=== PATIENT | male | born 1950 | race Caucasian/White ===

== ENCOUNTER 2020-08-19 10:29 | Outpatient (REF) | payer MEDICARE, SELFPAY ==
[2020-08-19 11:00] LABS: Estimated Average Glucose 189 mg/dL; Hemoglobin A1c % 8.2 %
[2020-08-19 11:19] LABS: Alanine Aminotransferase 36 U/L (0-40); Albumin Level 4.2 g/dL (3.5-5.0); Alkaline Phosphatase 122 U/L (39-117); Aspartate Amino Transferase 28 U/L (5-37); Bilirubin Direct 0.3 mg/dL (0.0-0.5); Cholesterol 149 mg/dL; Glucose Random 127 mg/dL (60-115); HDL Cholesterol 43 mg/dL; LDL Cholesterol Calculated 83 mg/dl; Total Protein 6.7 g/dL (6.5-8.0); Triglycerides 118 mg/dL
[2020-08-19 13:19] LABS: Reflex LDLD? No
== END 2020-08-19 10:30 | disposition home or self-care (01) ==
LOC: HO.LNP 10:29
PROVIDERS: PCP Internal Medicine; Visit Provider Internal Medicine
DX: E11.9 Type 2 diabetes mellitus without complications (principal); E78.00 Pure hypercholesterolemia, unspecified
CPT/HCPCS: 80061; 80076; 82947; 83036

== ENCOUNTER → 2020-09-03 10:36 | Outpatient (BNVA) | payer MEDICARE, SELFPAY | PROVIDERS: PCP Internal Medicine; Visit Provider Orthopaedic Surgery | DX: M25.511 Pain in right shoulder (principal); M25.512 Pain in left shoulder | CPT/HCPCS: 99212 ==

== ENCOUNTER 2021-03-03 10:25 | Outpatient (REF) | payer MEDICARE, SELFPAY ==
[2021-03-03 10:29] LABS: MANUAL DIFF FLAG NO
[2021-03-03 11:14] LABS: Basophils Percent Auto 0.3 % (0-2); Eosinophils Absolute Auto 0.1 X10*3/uL (0.0-0.4); Eosinophils Percent Auto 1.2 % (0-4); Hematocrit 37.9 % (42.0-52.0); Hemoglobin 12.6 g/dl (14.0-18.0); Imm Gran Abs Auto 0.04 X10*3/uL (0.00-0.03); Imm Gran Pct Auto 0.7 % (0.0-0.4); Lymphocytes Absolute Auto 1.5 X10*3/uL (1.2-4.9); Lymphocytes Percent Auto 24.2 % (20-40); Mean Corpuscular HGB Conc 33.2 g/dl (31.0-36.0); Mean Corpuscular Hemoglobin 30.2 pg (27.0-33.0); Mean Corpuscular Volume 90.9 fL (80.0-98.0); Mean Platelet Volume 9.8 fL (9.4-12.4); Monocytes Absolute Auto 0.7 X10*3/uL (0.1-1.2); Monocytes Percent Auto 11.4 % (2-11); Neutrophils Absolute Auto 3.8 x10*3/uL (2.0-8.3); Neutrophils Percent Auto 62.2 % (45-73); Platelet Count 161 X10*3/uL (160-400); Red Blood Count 4.17 X10*6/uL (4.60-5.80); Red Cell Distribution Width 13.5 % (11.0-16.0)
[2021-03-03 11:17] LABS: Appearance Urine CLEAR; Color Urine YELLOW; Glucose Urine UA NEG (NEG); Leukocyte Esterase Urine NEG (NEG); Nitrite Urine NEG (NEG); Specific Gravity - Urine 1.025 (1.005-1.025); Urine Blood NEG (NEG); Urine Ketones NEG (NEG); Urine Protein NEG (NEG-TRACE)
[2021-03-03 11:23] LABS: Estimated Average Glucose 217 mg/dL; Hemoglobin A1c % 9.2 %
[2021-03-03 11:41] LABS: Creatinine Urine 157.69 mg/dL; Microalbum/Creatinine Ratio Ur 18.3 ug/mg cr
[2021-03-03 11:56] LABS: Alanine Aminotransferase 31 U/L (0-40); Albumin Level 4.1 g/dL (3.5-5.0); Alkaline Phosphatase 106 U/L (39-117); Anion Gap 12 (12-20); Aspartate Amino Transferase 25 U/L (5-37); Bilirubin Total 0.8 mg/dL (0.0-1.0); Blood Urea Nitrogen 20 mg/dL (9-16); Calcium 9.6 mg/dL (8.4-10.2); Carbon Dioxide 27 mmol/L (22-29); Chloride 108 mmol/L (96-108); Cholesterol 159 mg/dL; Estimated Glomerular Filt Rate > 60; Glucose Fasting 103 mg/dL (60-99); HDL Cholesterol 37 mg/dL; LDL Cholesterol Calculated 92 mg/dl; Potassium 3.9 mmol/L (3.3-5.1); Sodium 143 mmol/L (135-145); Total Protein 6.7 g/dL (6.5-8.0); Triglycerides 152 mg/dL
[2021-03-03 12:20] LABS: PSA,Total (Free>4and<10) 1.24 ng/mL (0.00-4.00)
[2021-03-03 13:07] LABS: Reflex LDLD? No
== END 2021-03-03 10:26 | disposition home or self-care (01) ==
LOC: HO.LNP 10:25
PROVIDERS: Visit Provider Internal Medicine
DX: Z00.00 Encounter for general adult medical examination without abnormal findings (principal); Z12.5 Encounter for screening for malignant neoplasm of prostate; E11.40 Type 2 diabetes mellitus with diabetic neuropathy, unspecified; E78.00 Pure hypercholesterolemia, unspecified; I10 Essential (primary) hypertension
CPT/HCPCS: 80053; 80061; 81003; 82043; 83036; 84153; 85025

== ENCOUNTER 2021-05-14 07:22 | Outpatient (REF) | payer BC, SELFPAY ==
--- NOTE | ~2021-05-14 | XR_ITS ---
EXAMINATION: XR BILATERAL AP KNEES XR LEFT KNEE CLINICAL INFORMATION: Pain knee. COMPARISON: None. TECHNIQUE: Bilateral AP knee standing. Left knee 2 views. FINDINGS: Bilateral AP Knee: There is loss of medial compartment joint space. The lateral compartment joints is maintained normal. No bony erosive changes or soft tissue swelling. Left Knee: Lateral and patellofemoral views reveal no abnormal suprapatellar joint effusion. No loose bodies. No bony erosive changes. There is lateral patellar spurring. The soft tissues are normal. XR/XR knee LT 2V IMPRESSION: Moderate degenerative changes medial compartment both knees without fracture or dislocation. No abnormal joint effusion left knee. There is no visible acute fracture or dislocation seen.
--- NOTE | ~2021-05-14 | XR_ITS ---
EXAMINATION: XR BILATERAL AP KNEES XR LEFT KNEE CLINICAL INFORMATION: Pain knee. COMPARISON: None. TECHNIQUE: Bilateral AP knee standing. Left knee 2 views. FINDINGS: Bilateral AP Knee: There is loss of medial compartment joint space. The lateral compartment joints is maintained normal. No bony erosive changes or soft tissue swelling. Left Knee: Lateral and patellofemoral views reveal no abnormal suprapatellar joint effusion. No loose bodies. No bony erosive changes. There is lateral patellar spurring. The soft tissues are normal. XR/XR knee standing BI IMPRESSION: Moderate degenerative changes medial compartment both knees without fracture or dislocation. No abnormal joint effusion left knee. There is no visible acute fracture or dislocation seen.
== END 2021-05-14 07:23 | disposition home or self-care (01) ==
LOC: HO.HOSX 07:22
PROVIDERS: Visit Provider Physician Assistant
DX: M17.0 Bilateral primary osteoarthritis of knee (principal)
CPT/HCPCS: 20610; 73560; 73565; J1020

== ENCOUNTER 2021-09-22 08:13 | Day surgery (SDC) | payer MEDICARE, SELFPAY ==
[2021-09-16 10:41] VITALS: BMI 31.0
--- NOTE | 2021-09-19 12:51 | HO.ANESPROP2 ---
Documented by User: Barbie Oscar NP 09/19/21 12:52 HPI - Anesthesia Eval Consult details Narrative: 71yo M for Upper Endoscopy and Colonoscopy [facility] Active Problems Active Problems: All Active Problems (Updated 09/16/21 @ 10:40 by Sheree Warner RN) Osteoarthritis of knees, bilateral (Acute) Past Medical History Medical History Arthritis Diabetes Elevated cholesterol GERD (gastroesophageal reflux disease) Hypertension Skin cancer Sleep apnea Surgical History Surgical History H/O colonoscopy H/O right knee surgery History of appendectomy History of esophagogastroduodenoscopy (EGD) Hx of cataract extraction Hx of hernia repair Hx of repair of rotator cuff Hx of vasectomy Social History Social History Patient Tobacco Use Status: Former Tobacco user Smoked in Last 30 Days: No Are you DNR?: No Advance Directives: No Advance Directives Information Provided: Yes Recently lost weight without trying: No Nutrition Risks: No Nutritional Risk Current occupational status: retired [employer] Allergies Allergy/AdvReac Type Severity Reaction Status Date / Time No Known Allergies Allergy Verified 09/22/21 08:46 [No Known Allergies*] Home Medications Medication Instructions Recorded Confirmed Last Taken Type atorvastatin 40 mg tablet 40 mg PO DAILY 09/03/20 09/16/21 Unknown History metformin 500 mg tablet 500 mg PO DAILY 09/03/20 09/16/21 Unknown History omeprazole 20 mg capsule,delayed 20 mg PO DAILY 09/03/20 09/16/21 Unknown History release sitagliptin 100 mg tablet (Januvia) 100 mg PO DAILY 09/03/20 09/16/21 Unknown History valsartan 320 1 tab PO DAILY 09/03/20 09/16/21 Unknown History mg-hydrochlorothiazide 12.5 mg tablet aspirin 81 mg tablet,delayed 81 mg PO DAILY 09/16/21 09/16/21 09/15/21 History release insulin glargine 100 unit/mL (3 ea subcut 09/16/21 09/16/21 Unknown History mL) subcutaneous pen (Lantus Solostar U-100 Insulin) multivitamin 1 tab PO DAILY 09/16/21 09/16/21 Unknown History Exam Exam Date and Time: September 19, 2021 1251 Height,Weight and Vital Signs: Height 5 ft 8 in Weight 92.533 kg Assessment and Plan Assessment Anesthesia Assessment: Chart Reviewed Documented by User: Saskia Means MD 09/22/21 09:27 [facility] Past Medical History Medical History Arthritis Diabetes Elevated cholesterol GERD (gastroesophageal reflux disease) Hypertension Skin cancer Sleep apnea Surgical History Surgical History H/O colonoscopy H/O right knee surgery History of appendectomy History of esophagogastroduodenoscopy (EGD) Hx of cataract extraction Hx of hernia repair Hx of repair of rotator cuff Hx of vasectomy History of Problems with Anesthesia: No Social History Social History Patient Tobacco Use Status: Former Tobacco user Smoked in Last 30 Days: No Are you DNR?: No Advance Directives: No Advance Directives Information Provided: Yes Recently lost weight without trying: No Nutrition Risks: No Nutritional Risk Current occupational status: retired Meds Allergies Allergy/AdvReac Type Severity Reaction Status Date / Time No Known Allergies Allergy Verified 09/22/21 08:46 [No Known Allergies*] Home Medications Medication Instructions Recorded Confirmed Last Taken Type atorvastatin 40 mg tablet 40 mg PO DAILY 09/03/20 09/16/21 Unknown History metformin 500 mg tablet 500 mg PO DAILY 09/03/20 09/16/21 Unknown History omeprazole 20 mg capsule,delayed 20 mg PO DAILY 09/03/20 09/16/21 Unknown History release sitagliptin 100 mg tablet (Januvia) 100 mg PO DAILY 09/03/20 09/16/21 Unknown History valsartan 320 1 tab PO DAILY 09/03/20 09/16/21 Unknown History mg-hydrochlorothiazide 12.5 mg tablet aspirin 81 mg tablet,delayed 81 mg PO DAILY 0609/16/21 09/15/21 History release insulin glargine 100 unit/mL (3 ea subcut 09/16/21 09/16/21 Unknown History mL) subcutaneous pen (Lantus Solostar U-100 Insulin) multivitamin 1 tab PO DAILY 09/16/21 09/16/21 Unknown History Exam Airway Mallampati Class: III TM Dist: >3cm Neck ROM: Full Loose/Missing/Broken Teeth: No Heart: RRR Lungs: CTA Assessment and Plan Assessment Anesthesia Assessment: Anesthesia Plan Discussed Final Anesthetic Review History of Problems with Anesthesia: No NPO: Yes ASA Class: III Final Preanesthetic Review: Meds/Allgs Chart Reviewed, Consent Obtained/Reviewed and Anes Risks/Benef Reviewed Patient Risk: Intermediate Procedure Risk: Intermediate Anesthetic Plan Anesthetic Plan: MAC: Disposition: Standard PACU
[2021-09-22 08:40] LABS: Glucose, Whole Blood 118 mg/dL (60-115)
[2021-09-22] MEDS: Lactated Ringers 1,000 ML 100 ML IVCONT (08:47)
[2021-09-22 08:55] VITALS: BP 151/68; PULSE 66; RESP 18; TEMP 36.6; O2SAT 97
[2021-09-22 10:45] VITALS: BP 126/61; PULSE 63; RESP 16; TEMP 36.1; O2SAT 97
--- NOTE | 2021-09-22 10:49 | PM.OP ---
Brief Operative Note Date of Service: 09/22/21 Pre-op diagnosis: Xiao's, Screening Post-op diagnosis: other (Hiatal hernia, Diverticulosis) Procedure: EGD with biopsies, Colonoscopy to the cecum and TI Surgeon: Thien Okeefe Anesthesia: MAC Was an Logistics Service Representative used for this Procedure?: No Estimated blood loss (mL): 2.0 Pathology: other (A. EG Junction at 38cm) Condition: stable Disposition: PACU
[2021-09-22 11:00] VITALS: BP 141/68; PULSE 68; RESP 16; TEMP 36.1; O2SAT 98
--- NOTE | 2021-09-22 12:05 | OP_ITS ---
SURGEON: Thien Okeefe MD INDICATIONS: The patient presents for evaluation of gastroesophageal reflux, history of Xiao esophagus, history of tubular adenoma of the colon, and family history of colon cancer. Full consent has been obtained from him for this, including risks of bleeding and perforation. PREOPERATIVE DIAGNOSIS: POSTOPERATIVE DIAGNOSIS: PROCEDURE PERFORMED: Esophagogastroduodenoscopy with biopsies, and colonoscopy to the cecum and terminal ileum. ESTIMATED BLOOD LOSS: COMPLICATIONS: ANESTHESIA: Monitored anesthesia care. ASSISTANTS: SPECIMENS: PREOPERATIVE DIAGNOSES: Gastroesophageal reflux, history of Xiao esophagus, colorectal cancer screening, history of tubular adenoma of the colon, and family history of colon cancer. POSTOPERATIVE DIAGNOSES: Gastroesophageal reflux, history of Xiao esophagus, colorectal cancer screening, history of tubular adenoma of the colon, and family history of colon cancer, small hiatal hernia, sigmoid diverticulosis, and internal hemorrhoids. DESCRIPTION OF PROCEDURE: The patient was placed in the left lateral decubitus position. The Olympus video gastroscope was passed in the posterior oropharynx and upper esophagus under direct vision. The scope was passed slowly into the distal esophagus. The gastroesophageal junction appeared at 38 cm. There was some slight irregularity consistent with reflux and probably small areas of Xiao mucosa. There was no esophagitis nor any lesions. The scope was advanced to the pylorus and duodenum was cannulated to the descending portion. The duodenum including the bulb appeared normal without mass or ulceration. The scope was withdrawn back in the stomach. The gastric antrum and body appeared normal with good peristalsis. The scope was retroflexed visualizing the proximal stomach carefully, which appeared normal, without any sign of mass or ulceration. The scope was straightened. The scope was withdrawn back to the esophagus. The patient did have a small hiatal hernia. Biopsies were obtained at the EG junction at 38 cm. Proximal to that, the esophageal mucosa appeared normal. The scope was withdrawn from the patient. He was turned around for the colonoscopy. The digital rectal exam revealed no abnormalities. The Olympus video pediatric colonoscope was entered into the rectum and advanced easily to the cecum. Once in the cecum, I did identify normal-appearing cecal pouch with appendiceal orifice and a normal-appearing ileocecal valve. The terminal ileum was cannulated and appeared normal. Scope was withdrawn back in the colon. The entire cecum and ileocecal valve appeared normal. The scope was slowly withdrawn assessing all mucosal surfaces carefully. Preparation was excellent. I did not visualize any sign of polyps, colitis, or angiodysplasia. There was a mild amount of sigmoid diverticulosis. In the rectum, scope was retroflexed visualizing small internal hemorrhoids, but no other pathology. The rectal mucosa appeared normal. The scope was straightened and withdrawn from the patient. He tolerated both procedures well and was returned to recovery area in stable condition. IMPRESSION: 1. Small hiatal hernia, gastroesophageal reflux, history of Xiao esophagus. 2. Diverticulosis. 3. Internal hemorrhoids. PLAN: The results of biopsies will be checked. I would recommend a repeat upper endoscopy and colonoscopy in 5 years for further surveillance. He was advised to resume his aspirin tomorrow. He will continue his omeprazole. He will otherwise see me on a p.r.n. basis. MD PATRICIO Jay/NEMO / [phone]
== END 2021-09-22 11:33 | disposition home or self-care (01) ==
PROVIDERS: PCP Internal Medicine; Visit Provider Internal Medicine
PROC: (CPT 43239; principal; 2021-09-22 09:30)
DX: Z12.11 Encounter for screening for malignant neoplasm of colon (principal); Z86.010 Personal history of colon polyps; Z80.0 Family history of malignant neoplasm of digestive organs; K57.30 Diverticulosis of large intestine without perforation or abscess without bleeding; K64.8 Other hemorrhoids; K21.9 Gastro-esophageal reflux disease without esophagitis; K22.70 Barrett's esophagus without dysplasia; I10 Essential (primary) hypertension; E78.5 Hyperlipidemia, unspecified; G47.33 Obstructive sleep apnea (adult) (pediatric); E11.9 Type 2 diabetes mellitus without complications; Z79.4 Long term (current) use of insulin; Z79.1 Long term (current) use of non-steroidal anti-inflammatories (NSAID); Z79.82 Long term (current) use of aspirin; Z79.899 Other long term (current) drug therapy; Z87.891 Personal history of nicotine dependence
CPT/HCPCS: 43239; G0105; 82947; 88305; J3010

== ENCOUNTER 2021-09-30 12:09 | Outpatient (REF) | payer MEDICARE, SELFPAY ==
[2021-09-30 12:55] LABS: Alanine Aminotransferase 25 U/L (0-40); Albumin Level 4.3 g/dL (3.5-5.0); Alkaline Phosphatase 117 U/L (39-117); Aspartate Amino Transferase 24 U/L (5-37); Bilirubin Direct 0.3 mg/dL (0.0-0.5); Bilirubin Total 0.7 mg/dL (0.0-1.0); Cholesterol 161 mg/dL; Glucose Fasting 132 mg/dL (60-99); HDL Cholesterol 42 mg/dL; LDL Cholesterol Calculated 93 mg/dl; Total Protein 6.8 g/dL (6.5-8.0); Triglycerides 133 mg/dL
[2021-09-30 13:46] LABS: Estimated Average Glucose 177 mg/dL; Hemoglobin A1C 204.1118 umol/L; Hemoglobin A1c % 7.8 %
[2021-09-30 13:57] LABS: Reflex LDLD? No
== END 2021-09-30 12:10 | disposition home or self-care (01) ==
LOC: HO.LNP 12:09
PROVIDERS: PCP Internal Medicine; Visit Provider Internal Medicine
DX: E11.40 Type 2 diabetes mellitus with diabetic neuropathy, unspecified (principal); E78.00 Pure hypercholesterolemia, unspecified
CPT/HCPCS: 80061; 80076; 82947; 83036

== ENCOUNTER 2022-04-23 10:48 | Outpatient (REF) | payer MEDICARE, SELFPAY ==
[2022-04-23 10:52] LABS: MANUAL DIFF FLAG NO
[2022-04-23 11:49] LABS: Basophils Percent Auto 0.3 % (0-2); Eosinophils Percent Auto 0.6 % (0-4); Hemoglobin 13.2 g/dl (14.0-18.0); Imm Gran Abs Auto 0.09 X10*3/uL (0.00-0.03); Imm Gran Pct Auto 1.5 % (0.0-0.4); Lymphocytes Absolute Auto 1.6 X10*3/uL (1.2-4.9); Lymphocytes Percent Auto 26.5 % (20-40); Mean Corpuscular HGB Conc 33.8 g/dl (31.0-36.0); Mean Corpuscular Hemoglobin 29.8 pg (27.0-33.0); Mean Platelet Volume 9.8 fL (9.4-12.4); Monocytes Absolute Auto 0.8 X10*3/uL (0.1-1.2); Monocytes Percent Auto 13.5 % (2-11); Neutrophils Absolute Auto 3.6 x10*3/uL (2.0-8.3); Neutrophils Percent Auto 57.6 % (45-73); Platelet Count 192 X10*3/uL (160-400); Red Blood Count 4.43 X10*6/uL (4.60-5.80); Red Cell Distribution Width 13.2 % (11.0-16.0); White Blood Count 6.2 X10*3/uL (4.8-10.8)
[2022-04-23 11:51] LABS: Appearance Urine Clear; Color Urine Yellow; Glucose Urine UA Negative (Negative); Leukocyte Esterase Urine Negative (Negative); Nitrite Urine Negative (Negative); Specific Gravity - Urine 1.025 (1.005-1.025); Urine Blood Negative (Negative); Urine Ketones Negative (Negative); Urine Protein Trace mg/dL (Neg-Trace)
[2022-04-23 12:03] LABS: Estimated Average Glucose 209 mg/dL; Hemoglobin A1c % 8.9 %
[2022-04-23 12:12] LABS: Alanine Aminotransferase 30 U/L (0-40); Albumin Level 4.3 g/dL (3.5-5.0); Alkaline Phosphatase 109 U/L (39-117); Anion Gap 14 (12-20); Aspartate Amino Transferase 26 U/L (5-37); Bilirubin Total 0.9 mg/dL (0.0-1.0); Blood Urea Nitrogen 18 mg/dL (9-16); Calcium 9.7 mg/dL (8.4-10.2); Carbon Dioxide 28 mmol/L (22-29); Chloride 105 mmol/L (96-108); Cholesterol 149 mg/dL; Estimated Glomerular Filt Rate > 60; Glucose Fasting 80 mg/dL (60-99); HDL Cholesterol 35 mg/dL; LDL Cholesterol Calculated 96 mg/dl; Potassium 3.9 mmol/L (3.3-5.1); Sodium 143 mmol/L (135-145); Total Protein 6.8 g/dL (6.5-8.0); Triglycerides 90 mg/dL
[2022-04-23 12:25] LABS: PSA,Total (Free>4and<10) 1.47 ng/mL (0.00-4.00)
[2022-04-23 12:39] LABS: Creatinine Urine 173.43 mg/dL; Microalbum/Creatinine Ratio Ur 28.2 ug/mg cr
== END 2022-04-23 10:49 | disposition home or self-care (01) ==
LOC: HO.LNP 10:48
PROVIDERS: Visit Provider Internal Medicine
DX: Z00.00 Encounter for general adult medical examination without abnormal findings (principal); E11.9 Type 2 diabetes mellitus without complications; E78.00 Pure hypercholesterolemia, unspecified; I10 Essential (primary) hypertension; Z12.5 Encounter for screening for malignant neoplasm of prostate
CPT/HCPCS: 80053; 80061; 81003; 82043; 83036; 84153; 85025

== ENCOUNTER 2022-10-30 11:06 | Outpatient (REF) | payer MEDICARE, SELFPAY ==
[2022-10-30 13:41] LABS: Estimated Average Glucose 160 mg/dL; Hemoglobin A1c % 7.2 %
[2022-10-30 15:01] LABS: Cholesterol 149 mg/dL; HDL Cholesterol 39 mg/dL; LDL Cholesterol Calculated 84 mg/dl; Triglycerides 132 mg/dL
[2022-10-30 15:09] LABS: Alanine Aminotransferase 39 U/L (0-40); Albumin Level 4.2 g/dL (3.5-5.0); Alkaline Phosphatase 96 U/L (39-117); Aspartate Amino Transferase 32 U/L (5-37); Bilirubin Direct 0.3 mg/dL (0.0-0.5); Bilirubin Total 0.7 mg/dL (0.0-1.0); Glucose Fasting 124 mg/dL (60-99); Total Protein 7.2 g/dL (6.5-8.0)
[2022-10-30 19:54] LABS: Reflex LDLD? No
== END 2022-10-30 11:07 | disposition home or self-care (01) ==
LOC: HO.LNP 11:06
PROVIDERS: Visit Provider Internal Medicine
DX: E11.9 Type 2 diabetes mellitus without complications (principal); E78.00 Pure hypercholesterolemia, unspecified
CPT/HCPCS: 80061; 80076; 82947; 83036

== ENCOUNTER 2023-02-04 08:00 | Outpatient (RCR) | payer MEDICARE, SELFPAY ==
--- NOTE | 2022-12-30 15:09 | MHC.PT.EP ---
[facility] Mobile Office [place] Office [place] Office [address] Mica Beckwith [address] [phone] F: [phone] F: [phone] F: [phone] F: [phone] Physical Therapy Plan of Care Date of Evaluation: 12/30/22 Date of Surgery: Diagnosis: This is a 72 yo male presenting to skilled PT with a script for cervical disc disease. Assessment: This is a 72 yo male presenting to skilled PT with a script for cervical disc disease. Patient reporting ongoing cervical symptoms for about 1 year now, insidious onset. Pain increases at night for the most part, no reports of other aggravating symptoms. He has trialed advil and tylenol for pain management switched to sleeping with 1 pillow vs 2 which has also helped. Pain starts at the R side low aspect of c-spine, radiates into the scapular area, UT, medial upper arm and into the palm. He gets numbness in the palms and tingling B in all 5 fingers. Assessment reveals pain that ranges from up to a 5/10 at the worst. Patient demos decreased cervical and shoulder ROM, strength of RTC's and scapular stabilizers, TTP at lower cervical spine and UT's and impaired posture with forward head and rounded shoulders. He also demos little thoracic mobility, slow cervical ROM and noted creptitis. Based on functional limitations, impaired QOL and pain tolerance patient is a good candidate for skilled PT 2x/wk for 4wk. Frequency and Duration: The patient will be seen 2x/wl for 4wks Short Term Goals: I in HEP Improve cervical ROM by at least 25% Demo proper cervical positioning with progression of UB strengthening exercises without cues from PT Mcfp Goals: Report 50% improvement in QOL Tolerate sleeping through the night without waking from pain Improve NDI by 5 points Improve pain to no more than 2/10 at the worst Treatment Plan: Modalities to reduce pain, spasms and effusion. Manual therapy to restore motion and function. Therapeutic exercise to improve strength and flexibility. Neuromuscular re-education for posture and balance. Therapeutic activities to return to functional activities of daily living. Electronically signed by: Awa Dubuc, PT Please sign and return to therapist. Thank you for your referral.
--- NOTE | 2023-02-04 14:26 | MHC.PT.DC ---
[facility] [place] Office [place] Office [place] Office [address] Mica Beckwith 140 [facility] [phone] F: [phone] F: [phone] F: [phone] F: [phone] Physical Therapy Discharge Report Diagnosis: This is a 72 yo male presenting to skilled PT with a script for cervical disc disease. Date of Surgery: Date of Evaluation: 12/30/22 Date of Discharge: 02/04/23 Treatments to Date: 11 Cancellations to Date: 0 No Shows to Date: 0 Discharge Status: Achieved Goals Improved Function Independent with HEP Discharge Summary: Patient fannyos improved pain tolerance and management, improved cervical ROM, improved B UE shoulder strength and improved postural awareness. He has a good HEP to continue on his own at this time. He is appropriate for DC. Electronically signed by: Awa Simms PT Please sign and return to therapist. Thank you for your referral.
== END 2023-02-04 14:26 | disposition home or self-care (01) ==
LOC: HO.PTCHIC 08:00
PROVIDERS: PCP Internal Medicine; Visit Provider Internal Medicine
DX: M50.30 Other cervical disc degeneration, unspecified cervical region (principal)
CPT/HCPCS: 97110; 97140; 97162

== ENCOUNTER 2023-04-26 10:46 | Outpatient (REF) | payer MEDICARE, SELFPAY ==
[2023-04-26 10:50] LABS: MANUAL DIFF FLAG NO
[2023-04-26 11:09] LABS: Basophils Percent Auto 0.4 % (0-2); Eosinophils Absolute Auto 0.1 X10*3/uL (0.0-0.4); Eosinophils Percent Auto 1.7 % (0-4); Hemoglobin 13.3 g/dl (14.0-18.0); Imm Gran Abs Auto 0.05 X10*3/uL (0.00-0.03); Imm Gran Pct Auto 0.6 % (0.0-0.4); Lymphocytes Absolute Auto 2.1 X10*3/uL (1.2-4.9); Lymphocytes Percent Auto 27.1 % (20-40); Mean Corpuscular HGB Conc 33.3 g/dl (31.0-36.0); Mean Corpuscular Volume 90.1 fL (80.0-98.0); Monocytes Absolute Auto 0.7 X10*3/uL (0.1-1.2); Monocytes Percent Auto 9.2 % (2-11); Neutrophils Absolute Auto 4.7 x10*3/uL (2.0-8.3); Platelet Count 172 X10*3/uL (160-400); Red Blood Count 4.44 X10*6/uL (4.60-5.80); Red Cell Distribution Width 13.3 % (11.0-16.0); White Blood Count 7.7 X10*3/uL (4.8-10.8)
[2023-04-26 11:15] LABS: Appearance Urine Clear; Color Urine Yellow; Glucose Urine UA >=1000 mg/dL (Negative); Leukocyte Esterase Urine Negative (Negative); Nitrite Urine Negative (Negative); PH 5.5 (5.0-9.0); Specific Gravity - Urine >= 1.030 (1.005-1.025); UMIC TRIGGER UACC YES; Urine Blood Negative (Negative); Urine Ketones Negative (Negative); Urine Protein Negative (Neg-Trace)
[2023-04-26 11:20] LABS: Bacteria Urine None Seen (None Seen); Hyaline Casts Urine 0-2 /LPF (0-2); RBC Urine 0-2 /HPF (0-2); Squamous Epithelial Cell Urine 0-2 /HPF (0-2); WBC Urine 0-5 /HPF (0-5)
[2023-04-26 11:28] LABS: Alanine Aminotransferase 25 U/L (0-40); Albumin Level 4.1 g/dL (3.5-5.0); Alkaline Phosphatase 97 U/L (39-117); Anion Gap 14 (12-20); Aspartate Amino Transferase 22 U/L (5-37); Bilirubin Total 0.7 mg/dL (0.0-1.0); Blood Urea Nitrogen 20 mg/dL (9-16); Calcium 9.6 mg/dL (8.4-10.2); Carbon Dioxide 27 mmol/L (22-29); Chloride 106 mmol/L (96-108); Cholesterol 139 mg/dL (<200); Estimated Glomerular Filt Rate > 60; Glucose Fasting 121 mg/dL (60-99); HDL Cholesterol 40 mg/dL (>40); LDL Cholesterol Calculated 72 mg/dL (<100); Potassium 4.3 mmol/L (3.3-5.1); Sodium 143 mmol/L (135-145); Triglycerides 137 mg/dL (<150)
[2023-04-26 11:43] LABS: Estimated Average Glucose 166 mg/dL; Hemoglobin A1c % 7.4 % (<6.0)
[2023-04-26 12:17] LABS: Creatinine Urine 102.69 mg/dL; Microalbum/Creatinine Ratio Ur 20.4 ug/mg cr (<30)
[2023-04-26 12:21] LABS: PSA,Total (Free>4and<10) 1.37 ng/mL (0.00-4.00)
== END 2023-04-26 10:47 | disposition home or self-care (01) ==
LOC: HO.LNP 10:46
PROVIDERS: Visit Provider Internal Medicine
DX: Z00.00 Encounter for general adult medical examination without abnormal findings (principal); E11.9 Type 2 diabetes mellitus without complications; E78.00 Pure hypercholesterolemia, unspecified; I10 Essential (primary) hypertension; Z12.5 Encounter for screening for malignant neoplasm of prostate
CPT/HCPCS: 80053; 80061; 81001; 82043; 82570; 83036; 84153; 85025

== ENCOUNTER 2023-11-01 11:02 | Outpatient (REF) | payer MEDICARE, SELFPAY ==
[2023-11-01 11:49] LABS: Estimated Average Glucose 189 mg/dL; Hemoglobin A1c % 8.2 % (<6.0)
[2023-11-01 12:13] LABS: Alanine Aminotransferase 40 U/L (0-40); Albumin Level 4.4 g/dL (3.5-5.0); Alkaline Phosphatase 110 U/L (39-117); Aspartate Amino Transferase 37 U/L (5-37); Bilirubin Direct 0.2 mg/dL (0.0-0.5); Bilirubin Total 0.7 mg/dL (0.0-1.0); Cholesterol 199 mg/dL (<200); Glucose Fasting 137 mg/dL (60-99); HDL Cholesterol 46 mg/dL (>40); LDL Cholesterol Calculated 106 mg/dL (<100); Total Protein 7.5 g/dL (6.5-8.0); Triglycerides 235 mg/dL (<150)
[2023-11-01 12:31] LABS: Reflex LDLD? No
== END 2023-11-01 11:03 | disposition home or self-care (01) ==
LOC: HO.LNP 11:02
PROVIDERS: Visit Provider Internal Medicine
DX: E11.9 Type 2 diabetes mellitus without complications (principal); E78.00 Pure hypercholesterolemia, unspecified
CPT/HCPCS: 80061; 80076; 82947; 83036

== ENCOUNTER 2024-04-27 08:00 | Outpatient (REF) | payer MEDICARE, SELFPAY ==
[2024-04-27 10:41] LABS: MANUAL DIFF FLAG NO
[2024-04-27 10:45] LABS: Appearance Urine Clear; Color Urine Yellow; Glucose Urine UA >=1000 mg/dL (Negative); Leukocyte Esterase Urine Negative (Negative); Nitrite Urine Negative (Negative); PH 5.5 (5.0-9.0); Specific Gravity - Urine >= 1.030 (1.005-1.025); UMIC TRIGGER UACC YES; Urine Blood Negative (Negative); Urine Ketones Trace mg/dL (Negative); Urine Protein Trace mg/dL (Neg-Trace)
[2024-04-27 10:46] LABS: Basophils Percent Auto 0.5 % (0-2); Eosinophils Absolute Auto 0.1 X10*3/uL (0.0-0.4); Eosinophils Percent Auto 1.3 % (0-4); Hematocrit 42.7 % (42.0-52.0); Imm Gran Abs Auto 0.07 X10*3/uL (0.00-0.03); Imm Gran Pct Auto 1.3 % (0.0-0.4); Lymphocytes Absolute Auto 1.5 X10*3/uL (1.2-4.9); Lymphocytes Percent Auto 26.8 % (20-40); Mean Corpuscular HGB Conc 32.8 g/dl (31.0-36.0); Mean Corpuscular Hemoglobin 30.2 pg (27.0-33.0); Mean Platelet Volume 9.8 fL (9.4-12.4); Monocytes Percent Auto 18.4 % (2-11); Neutrophils Absolute Auto 2.9 x10*3/uL (2.0-8.3); Neutrophils Percent Auto 51.7 % (45-73); Platelet Count 161 X10*3/uL (160-400); Red Blood Count 4.64 X10*6/uL (4.60-5.80); Red Cell Distribution Width 13.8 % (11.0-16.0); White Blood Count 5.6 X10*3/uL (4.8-10.8)
[2024-04-27 10:47] LABS: Bacteria Urine None Seen (None Seen); Hyaline Casts Urine 0-2 /LPF (0-2); RBC Urine 0-2 /HPF (0-2); Squamous Epithelial Cell Urine 0-2 /HPF (0-2); WBC Urine 0-5 /HPF (0-5)
[2024-04-27 10:55] LABS: Estimated Average Glucose 186 mg/dL; Hemoglobin A1C 237.9366 umol/L; Hemoglobin A1c % 8.1 % (<6.0); Total Hemoglobin (HGBA1C) 3633.1566 umol/L
[2024-04-27 10:58] LABS: Albumin Level 4.3 g/dL (3.5-5.0); Alkaline Phosphatase 107 U/L (39-117); Anion Gap 12 (12-20); Aspartate Amino Transferase 34 U/L (5-37); Bilirubin Total 0.7 mg/dL (0.0-1.0); Blood Urea Nitrogen 18 mg/dL (9-16); Calcium 9.3 mg/dL (8.4-10.2); Carbon Dioxide 27 mmol/L (22-29); Chloride 109 mmol/L (96-108); Cholesterol 172 mg/dL (<200); Estimated Glomerular Filt Rate > 60; Glucose Fasting 159 mg/dL (60-99); HDL Cholesterol 34 mg/dL (>40); LDL Cholesterol Calculated 91 mg/dL (<100); Sodium 144 mmol/L (135-145); Total Protein 7.5 g/dL (6.5-8.0); Triglycerides 239 mg/dL (<150)
[2024-04-27 11:12] LABS: Alanine Aminotransferase 50 U/L (0-40)
[2024-04-27 11:15] LABS: PSA,Total (Free>4and<10) 1.66 ng/mL (0.00-4.00)
[2024-04-27 11:36] LABS: Creatinine Urine 130.05 mg/dL; Microalbum/Creatinine Ratio Ur 35.3 ug/mg cr (<30)
--- OUTSIDE RECORDS SUMMARY | 2024-04-27 14:16 | XMS_ITS ---
Author Organization Mauricio Dale MD Address [address] [place], [place] [id number] Care Team Providers Care Secondary Set Up Man Name Role Phone Mauricio Dale Primary Care Provider [phone] Results Component Value Reference Range Notes Complete Blood Count Auto Di ff Reviewed date:04/27/2024 12:21:20 PM Interpretation: Performing Lab:[facility], [address] [place] [phone] Notes/Report: White Blood Count 5.6 4.8-10.8 X10*3/uL Red Blood Count 4.64 4.60-5.80 X10*6/uL Hemoglobin 14.0 14.0-18.0 g/dl Hematocrit 42.7 42.0-52.0 % Mean Corpuscular Volume 92.0 80.0-98.0 fL Mean Corpuscular Hemoglobin 30.2 27.0-33.0 pg Mean Corpuscular HGB Conc 32.8 31.0-36.0 g/dl Red Cell Distribution Width 13.8 11.0-16.0 % Platelet Count 161 160-400 X10*3/uL Mean Platelet Volume 9.8 9.4-12.4 fL Neutrophils Percent Auto 51.7 45-73 % Imm Gran Pct Auto 1.3 0.0-0.4 % Lymphocytes Percent Auto 26.8 20-40 % Monocytes Percent Auto 18.4 2-11 % Eosinophils Percent Auto 1.3 0-4 % Basophils Percent Auto 0.5 0-2 % NRBC Pct Auto 0.0 0.0-0.2 /100WBC Neutrophils Absolute Auto 2.9 2.0-8.3 x10*3/u L Imm Gran Abs Auto 0.07 0.00-0.03 X10*3/uL Lymphocytes Absolute Auto 1.5 1.2-4.9 X10*3/u L Monocytes Absolute Auto 1.0 0.1-1.2 X10*3/uL Eosinophils Absolute Auto 0.1 0.0-0.4 X10*3/u L Basophils Absolute Auto 0.0 0.0-0.2 X10*3/uL NRBC Abs Auto 0.000 0.0-0.012 X10*3/uL Comprehensive [place]. Panel Fa st Reviewed date:04/27/2024 12:17:59 PM Interpretation: Performing Lab:[address] [phone] Notes/Report: Sodium 144 135-145 mmol/L Potassium 4.0 3.3-5.1 mmol/L Chloride 109 96-108 mmol/L Carbon Dioxide 27 22-29 mmol/L Anion Gap 12 12-20 Blood Urea Nitrogen 18 9-16 mg/dL Creatinine 0.79 0.5-1.4 mg/dL Estimated Glomerular Filt Rate > 60 Chronic Kidney Disease: Estimated GFR < 60 mL/min/1.73m2 Severe Kidney Disease: Estimated GFR < 15 mL/min/1.73m2 Glucose Fasting 159 60-99 mg/dL A fasting glucose of 126 mg/dl or greater on more than one occasion is considered diagnostic of diabetes. Calcium 9.3 8.4-10.2 mg/dL Bilirubin Total 0.7 0.0-1.0 mg/dL Aspartate Amino Transferase 34 5-37 U/L Alanine Aminotransferase 50 0-40 U/L Total Protein 7.5 6.5-8.0 g/dL Albumin Level 4.3 3.5-5.0 g/dL Alkaline Phosphatase 107 39-117 U/L Lipid Panel Reviewed date:04/27/2024 12:18:16 PM Interpretation: Performing Lab:[address] [phone] Notes/Report: Triglycerides 239 <150 mg/dL Desirable Triglyceride: less than 150 mg/dL Borderline High Triglyceride 150-199 mg/dL High Triglyceride: 200-499 mg/dL Very High Triglyceride: greater than or equal to 5OO mg/dL Cholesterol 172 <200 mg/dL Desirable Cholesterol: less than 200 mg/dL Borderline High Cholesterol: 200-239 mg/dL High Cholesterol: greater than 239 mg/dL LDL Cholesterol Calculated 91 <100 mg/dL Desirable LDL: less than 100 mg/dL Near Optimal/Above Optimal LDL: 110-129 mg/dL Borderline High LDL: 130-159 mg/dL High LDL: 160-189 mg/dL Very High LDL: greater than or equal to 190 mg/dL HDL Cholesterol 34 >40 mg/dL Desirable HDL: greater than 40 mg/dL Note: This HDL assay may give artificially low results in patients with liver disease. PSA,Total (Free>4and<10) Reviewed date:04/27/2024 12:18:08 PM Interpretation: Performing Lab:[address] [phone] Notes/Report: PSA,Total (Free>4and<10) 1.66 0.00-4.00 ng/mL A Free PSA was not performed: The percentage of Free PSA can be used to enhance the differentiation of prostate cancer from benign prostatic disease in subjects whose PSA levels are between 4.0 and 10.0 ng/mL. For subjects whose PSA levels are below 4.0 or above 10.0 ng/mL, the risk of prostate cancer is determined on the basis of the PSA alone. Therefore the % Free PSA is recommended only for those subjects whose PSA levels are between 4.0 and 10.0 ng/mL. PSA methodology: Mcwilliams Alinity i Chemiluminescent Microparticle Immunoassay (CMIA) Microalbumin, Random Reviewed date:04/27/2024 12:21:53 PM Interpretation: Performing Lab:[address] [phone] Notes/Report: Creatinine Urine 130.05 Microalbumin Urine 46.0 Microalbum/Creatinine Ratio Ur 35.3 <30 ug/mg cr Albumin/Creatinine Ratio Reference Ranges: Normal: < 30 ug/mg creatinine Microalbuminuria: 30 - 300 ug/mg creatinine Clinical Albuminuria: > 300 ug/mg creatinine Hemoglobin A1c Reviewed date:04/27/2024 12:14:06 PM Interpretation: Performing Lab:[address] [id number] Notes/Report: Hemoglobin A1c % 8.1 <6.0 % Hemoglobin A1C Reference Range Adults: 4.8 - 6.0 % Non diabetic: < 6.0 % Goal: < 7.0 % Additional Action Suggested: > 8.0 % Note: Hemoglobin A1c results are invalid for patients with abnormal amounts of HbF. Blood transfusions may impact the HbA1c concentration in the patient sample. Estimated Average Glucose 186 eAG = Estimated average glucose which is %A1C expressed as average glucose, using the formula of the I6P-Hldaptk Average Glucose study (ADAG), Diabetes Care, Vol.31,#8, Oct. 2007 UA ClnCatch+Micro w/rflx Cul t Reviewed date:04/27/2024 12:14:34 PM Interpretation: Performing Lab:[facility], [address] [place] [phone] Notes/Report: [id number] Urine, Clean Catch Color Urine Yellow Appearance Urine Clear PH 5.5 5.0-9.0 Glucose Urine UA >=1000 Negative mg/dL Urine Blood Negative Negative Specific Moroni - Urine >= 1.030 1.005-1.025 Urine Protein Trace Neg-Trace mg/dL Urine Ketones Trace Negative mg/dL Nitrite Urine Negative Negative Leukocyte Esterase Urine Negative Negative RBC Urine 0-2 0-2 /HPF WBC Urine 0-5 0-5 /HPF Squamous Epithelial Cell Urine 0-2 0-2 /HPF Bacteria Urine None Seen None Seen Hyaline Casts Urine 0-2 0-2 /LPF REASON FOR VISIT FASTING LABS Encounters Encounter Location Date Provider Diagnosis Mauricio Dale MD [address] [facility] [address] [place], [place] [id number] 04/27/2024 Mauricio Dale Blood tests for rout ine general physical examination Z00.00 ; Type 2 diabetes, controlled, with neuropathy E11.40 ; Hypercholesteremia E78.00 and Essential hypertension I10 Assessments Encounter Date Diagnosis (ICD Code) Assessment Notes Treatment Notes Treatment Clinical Notes Section Notes 04/27/2024 Blood tests for routine general physical examination (ICD-10 - Z00.00) 04/27/2024 Type 2 diabetes, controlled, with neuropathy (ICD-10 - E11.40) 04/27/2024 Hypercholesteremia (ICD-10 - E78.00) 04/27/2024 Essential hypertensi on (ICD-10 - I10) Plan Of Treatment Next Appt Details Provider Name:Mauricio Cline ier, 05/04/2024 09:30:00 AM, [address], [address], [place], [place], [id number], Progress Notes * Umang HEATHDOB:1950 ([age] yo M)Acc No.[id number]:04/27/2024 Progress Note Patient:?Umang HEATH Provider:?Mauricio Dale MD :1950???Age:74 Y???Sex:Male Atif e:04/27/2024 Address:[address] [place], [place] [id number] Subjective: * Chief Complaints: * ???1. FASTING LABS. * Medical History:? Objective: * Vitals:? Assessment: * Assessment: 1.?Blood tests for routine g eneral physical examination - Z00.00 (Primary)???2.?Type 2 diabetes, controlled, with neuropathy - E11.40???3.?Hypercholesteremia - E78.00???4.?Essential hypertension - I10??? Plan: * Treatment: 2.?Type 2 diabetes, controll ed, with neuropathy?LAB: Complete Blood Count Auto Diff (Collection Date & Time - 04/27/2024 08:00 AM) ?LAB: Comprehensive [place]. Panel Fast (Collection Date & Time - 04/27/2024 08:00 AM) ?LAB: Lipid Panel (Collection Date & Time - 04/27/2024 08:00 AM) ?LAB: PSA,Total (Free>4and<10) (Collection Date & Time - 04/27/2024 08:00 AM) ?LAB: Microalbumin, Random (Collection Date & Time - 04/27/2024 08:00 AM) ?LAB: Hemoglobin A1c (Collection Date & Time - 04/27/2024 08:00 AM) ?LAB: UA ClnCatch+Micro w/rflx Cult (Collection Date & Time - 04/27/2024 08:00 AM) 3.?Hypercholesteremia?LAB: Complete Blood Count Auto Diff (Collection Date & Time - 04/27/2024 08:00 AM) ?LAB: Comprehensive [place]. Panel Fast (Collection & Time - 04/27/2024 08:00 AM) ?LAB: Lipid Panel (Collection Date & Time - 04/27/2024 08:00 AM) ?LAB: PSA,Total (Free>4and<10) (Collection Date & Time - 04/27/2024 08:00 AM) ?LAB: Microalbumin, Random (Collection Date & Time - 04/27/2024 08:00 AM) ?LAB: Hemoglobin A1c (Collection & Time 04/27/2024 08:00 AM) ?LAB: UA ClnCatch+Micro w/rflx Cult (Collection Date & Time - 04/27/2024 08:00 AM) 4.?Essential hypertension?LAB: Complete Blood Count Auto Diff (Collection Date & Time 04/27/2024 08:00 AM) ?LAB: Comprehensive [place]. Panel Fast (Collection Date & Time - 04/27/2024 08:00 AM) ?LAB: Lipid Panel (Collection & Time 04/27/2024 08:00 AM) ?LAB: PSA,Total (Free>4and<10) (Collection Date & Time - 04/27/2024 08:00 AM) ?LAB: Microalbumin, Random (Collection Date & Time 04/27/2024 08:00 AM) ?LAB: Hemoglobin A1c (Collection Date & Time - 04/27/2024 08:00 AM) ?LAB: UA ClnCatch+Micro w/rflx Cult (Collection Date & Time - 04/27/2024 08:00 AM) * Procedure Codes:?78189 VENIP UNCT, ROUTINE* * * The named appointment provid er may or may not be the originator of this progress note, and it is not deemed complete until electronically signed by the appointment provider. Sign off status: Pending * Provider:?Mauricio Dale MD Date:?0 04/27/2024 Generated for Sam macdonald/Delroy/Marcelinoitting on:?04/27/2024 02:16 PM EST
--- OUTSIDE RECORDS SUMMARY | 2024-04-27 14:16 | XMS_ITS ---
Author Organization Mauricio Dale MD Address [address] [place], [place] [id number] Care Team Providers Care Etl Tester Name Role Phone Mauricio Dale Primary Care Provider Allergies No Known Allergies REASON FOR VISIT 3 month Medications Medication SIG (Take, Route, Frequency, Duration) Notes Start Date End Date Status metFORMIN HCl 500 MG 2 tablet with a justyna l Orally twice a day Active Sildenafil Citrate 100 MG 1 tablet as needed Orally Once a day for 30 day(s) 01/24/2018 Not-Max ing Lantus SoloStar 100 UNIT/ML INJECT 55 UNITS UNDER THE SKIN ONCE DAILY Active Farxiga 5 MG TAKE 1 TABLET BY HILARY TH EVERY DAY IN THE MORNING Orally Once a day Active CeleBREX 200 MG 1 capsule with food Orally QOD for 90 days 10/25/2020 Not-Takin g BD Pen Needle Short U/F 31G X 8 MM USE DIRECTED SUBCUTANEOUSLY DAILY three times a day for 90 days Active Valsartan-hydroCHLOROth iazide 320-12.5 MG 1 tablet Orally Once a day for 90 days Active FreeStyle Lorene 2 Sensor - USE DIRECTED for 84 Activ e Atorvastatin Calcium 40 MG TAKE 1 TABLET DAILY Orally Once a day Active Omeprazole 20 MG TAKE 1 CAPSULE ONCE DAILY for 90 Active Basaglar KwikPen 100 UNIT/ML 55 units Subcutaneous daily 02/18/2024 Active Januvia 100 MG TAKE 1 TABLET BY HILARY TH EVERY DAY Orally Once a day Active OneTouch Ultra Test - as directed In Vit ro test daily for 90 days 08/25/2018 Active One Touch Delica Lancets 0 1 lancet invitro DX: E 11.9 use to test blood sugar once a day for 30 days 12/01/2018 Active Aspir-81 81 MG 1 tablet Orally Once a day Active Vital Signs Blood pressure systolic 138 mm Hg 02/22/20 24 Blood pressure diastolic 60 mm Hg 024 Height 67 in 02/22/2024 Weight 202 lbs 02/22/2024 BMI 31.63 kg/m2 02/22/2024 Encounters Encounter Location Date Provider Diagnosis Mauricio Dale MD [address] [place], [place] [phone] 02/22/2024 Maruicio Dale Type 2 diabetes mellitus without complications E11.9 ; Mild cognitive impairment G31.84 and Nail abnormality L60.9 Assessments Encounter Date Diagnosis (ICD Code) Assessment Notes Treatment Notes Treatment Clinical Notes Section Notes 02/22/2024 Type 2 diabetes mellitus without complications (ICD-10 - E11.9) is presently on 55 units increase to 58, patient verbalized understanding od medication increase 02/22/2024 Mild cognitive impairment (ICD-10 - G31.84) doing the same. no treatment is available except continue exercise 02/22/2024 Nail abnormality (ICD-10 - L60.9) referral to dermatology dr bryan/ patient stated he has an appt in Mar. Plan Of Treatment Medication Medication Name Sig Start Date Stop Date Notes metFORMIN HCl 500 MG 2 tablet with a justyna l Orally twice a day Lantus SoloStar 100 UNIT/ML INJECT 55 UN ITS UNDER THE SKIN ONCE DAILY Farxiga 5 MG TAKE 1 TABLET BY HILARY TH EVERY DAY IN THE MORNING Orally Once a day Basaglar KwikPen 100 UNIT/ML 55 units Subcutaneous daily 1 04/19/2023 Januvia 100 MG TAKE 1 TABLET BY HILARY TH EVERY DAY Orally Once a day Treatment Notes Assessment Notes Type 2 diabetes mellitus wit hout complications is presently on 55 units increase to 58, patient verbalized understanding od medication increase Mild cognitive impairment doing the same . no treatment is available except continue exercise Nail abnormality referral to dermatol rakesh bryan/ patient stated he has an appt in Mar. Next Appt Details Provider Name:Mauricio kovacs, 05/04/2024 09:30:00 AM, [address], [address], [place], [place], [id number], Progress Notes * Juvencio HEATHDOB:1950 ([age] yo M)Acc No.[id number]:02/22/2024 Progress Notes Patient:?Juvencio Heath Provider:?Mauricio Dale MD :1950???Age:74 Y???Sex:Male Atif e:02/22/2024 Address:[address] [place], [place] [id number] Subjective: * Chief Complaints: * ???3 month * HPI: ???Symptom(s):? patient is a 74 yo male here for 3 month follow up of diabetes having problems with arthritis in hands especially at night. * ROS:?General/Constitutional:?Denies?Chills.?Denies?Fatigue.?Denies?Fever.?Denies?Lightheadedness.?ENT:?Patient denies?decreased sense of smell , any loss of taste , sore throat.?Denies?Sore throat.?Respiratory:?Denies?Cough.?Denies?Shortness of breath at rest.?Denies?Shortness of breath with exertion.?Gastrointestinal:?Denies?Diarrhea.?Denies?Nausea.?Musculoskeletal:?Patient denies?muscle aches.?Peripheral Vascular:?Patient denies?red and blue toes.?Skin:?Patient complaining of?complaining that after burning his thumb his nail is growing abnormally. definitely remembers burning it.?Neurologic:?Patient complaining of? is complaining of memory loss.?.? * Medical History:? * Surgical History:? * Hospitalization/Major Diagno stic Procedure:? * Medications:?TakingAspir-81 81 MG Tablet Delayed Release 1 tablet Orally Once a dayOneTouch Ultra Test - Strip as directed In Vitro test dailyOne Touch Delica Lancets 0 1 lancet invitro DX: E 11.9 use to test blood sugar once a dayValsartan-hydroCHLOROthiazide 320-12.5 MG Tablet 1 tablet Orally Once a dayFreeStyle Lorene 2 Sensor - Miscellaneous USE DIRECTED BD Pen Needle Short U/F 31G X 8 MM Miscellaneous USE DIRECTED SUBCUTANEOUSLY DAILY three times a dayLantus SoloStar 100 UNIT/ML Solution Pen-injector INJECT 55 UNITS UNDER THE SKIN ONCE DAILY Omeprazole 20 MG Capsule Delayed Release TAKE 1 CAPSULE ONCE DAILY Farxiga 5 MG Tablet TAKE 1 TABLET BY MOUTH EVERY DAY IN THE MORNING Orally Once a daymetFORMIN HCl 500 MG Tablet 2 tablet with a meal Orally twice a dayAtorvastatin Calcium 40 MG Tablet TAKE 1 TABLET DAILY Orally Once a dayJanuvia 100 MG Tablet TAKE 1 TABLET BY MOUTH EVERY DAY Orally Once a dayBasaglar KwikPen 100 UNIT/ML Solution Pen- injector 55 units Subcutaneous dailyTaking Aspir-81 81 MG Tablet Delayed Release 1 tablet Orally Once a dayTaking OneTouch Ultra Test - Strip as directed In Vitro test dailyTaking One Touch Delica Lancets 0 1 lancet invitro DX: E 11.9 use to test blood sugar once a dayTaking Valsartan-hydroCHLOROthiazide 320-12.5 MG Tablet 1 tablet Orally Once a dayTaking FreeStyle Lorene 2 Sensor - Miscellaneous USE DIRECTED Taking BD Pen Needle Short U/F 31G X 8 MM Miscellaneous USE DIRECTED SUBCUTANEOUSLY DAILY three times a dayTaking Lantus SoloStar 100 UNIT/ML Solution Pen-injector INJECT 55 UNITS UNDER THE SKIN ONCE DAILY Taking Omeprazole 20 MG Capsule Delayed Release TAKE 1 CAPSULE ONCE DAILY Taking Farxiga 5 MG Tablet TAKE 1 TABLET BY MOUTH EVERY DAY IN THE MORNING Orally Once a dayTaking metFORMIN HCl 500 MG Tablet 2 tablet with a meal Orally twice a dayTaking Atorvastatin Calcium 40 MG Tablet TAKE 1 TABLET DAILY Orally Once a dayTaking Januvia 100 MG Tablet TAKE 1 TABLET BY MOUTH EVERY DAY Orally Once a dayTaking Basaglar KwikPen 100 UNIT/ML Solution Pen-injector 55 units Subcutaneous dailyNot-Taking/PRNCeleBREX 200 MG Capsule 1 capsule with food Orally QODSildenafil Citrate 100 MG Tablet 1 tablet as needed Orally Once a dayMedication List reviewed and reconciled with the patientNot-Taking/PRN CeleBREX 200 MG Capsule 1 capsule with food Orally QODNot-Taking/PRN Sildenafil Citrate 100 MG Tablet 1 tablet as needed Orally Once a dayMedication List reviewed and reconciled with the patient * Allergies:?N.K.D.A.yes[Aller gies Verified] Objective: * Vitals:?Ht: 67, Wt:202, BMI: 31.63, BP:138/60. * Examination: ???General Examination: ?GENERAL APPEARANCE:?alert, well hydrated, in no distress.?HEAD:?normocephalic.?SKIN:?good turgor. the nailbed on the left thumb is abnormal.?HEART:?regular rate and rhythm , no murmurs, rubs, gallops.?LUNGS:?no wheezes, rales, rhonchi , good air movement , clear to auscultation bilaterally.? Assessment: * Assessment: 1.?Type 2 diabetes mellitus without complications - E11.9?2.?Mild cognitive impairment - G31.84?3.?Nail abnormality - L60.9? Plan: * Treatment: 2.?Mild cognitive impairment ? Notes: doing the same. no treatment is available except continue exercise?? 3.?Nail abnormality? Notes: referral to dermatology dr bryan/ patient stated he has an appt in Mar.?? * Procedure Codes:? * * Sign off status: Completed true * Provider:?Mauricio Dale MD Date:?1 04/23/2023 Generated for Sam macdonald/Delroy/Marcelinoitting on:?04/27/2024 02:16 PM EST History and Physical Notes * HPI (History of Present Illness) Category Sub-Category Detail Notes Category Not es Symptom(s) patient is a 74 yo male here for 3 month follow up of diabetes having problems with arthritis in hands especially at night. Examination Category Sub-Category Detail Notes Category Not es General Examination GENERAL APPEARANCE: alert, w ell hydrated, in no distress HEAD: normocephalic HEART: regular rate and rhy thm , no murmurs, rubs, gallops LUNGS: no wheezes, rales, r honchi , good air movement , clear to auscultation bilaterally SKIN: good turgor. the andrzej lbed on the left thumb is abnormal
--- OUTSIDE RECORDS SUMMARY | 2024-04-27 14:17 | XMS_ITS | Patient Health Record ---
Author Organization [facility] Address [address] [place] [id number] Care Team Providers Care Coding Educator Name Role Phone Mauricio Dale MD Primary Care Provider Thien Johnson Unavailable [phone] ALLERGIES No Known Allergies REASON FOR REFERRAL No Information MEDICATIONS Medication SIG (Take, Route, Frequency, Duration) Notes Start Date End Date Status Advil 200 MG 1 capsule with food or milk as needed Orally as needed Active Multivitamins Active Lantus Active Omeprazole 20 MG 1 capsule Orally Onc e a day Active Valsartan-hydroCHLOROthiaz sidra 320-25 MG 2tablets Orally Once a day Active Januvia 100 MG Oral for 90 Act jerry metFORMIN HCl 500 MG Orally Twice a day Active Diovan HCT Not-Takin g Atorvastatin Calcium 40 MG Oral for 90 Active Aspir-81 Active glyBURIDE Not-Taking IMMUNIZATIONS Vaccine Route Administration Date Status Comme nts Influenza Unknown 11/27/2020 Administered SOCIAL HISTORY Sex Assigned At : Social History Observation Description Sex Assigned At Unknown PROBLEMS Problem Type ICD Code Onset Dates Problem Status W/U Status Risk SNOMED Code Notes Problem Encounter for screening for malignant neoplasm of colon (Z12.11) Active confirmed 917656960 Problem History of adenomatous polyp of colon (Z86.010) Active confirmed 740567796 Problem Encounter for screening for malignant neoplasm of rectum (Z12.12) Active confirmed Screening for malignant neoplasm of rectum (118597272) Problem Gastroesophageal reflux disease without esophagitis (K21.9) Active confirmed 848548437 Problem Barretts esophagus without dysplasia (K22.70) Active confirmed 211362598 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 Xiao esophag us (652891724) Problem Gastroesophageal reflux (K21.9) Active confirmed Esophageal re flux finding (345649424) Problem GERD without esophagitis (K21.9) Active confirmed Gastroes ophageal reflux disease (396560362) Problem Diverticulosis of colon (K57.30) Active confirmed Diverticulosi s of colon (365119929) Problem 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) Active confirmed Xiao's esophagus (416910302) PLAN OF TREATMENT Future Test Test Name Order Date UPPER GI ENDOSCOPY 12/31/2010 COLONOSCOPY 12/31/2010 UPPER GI ENDOSCOPY 06/16/2016 COLONOSCOPY 06/16/2016 UPPER GI ENDOSCOPY 08/26/2021 COLONOSCOPY 08/26/2021 Insurance Providers Payer Name Payer Address Payer Phone Subscriber Number Group Number Insured Name Patient Relationship to Insured Coverage Start Date Coverage End Date [facility] [address] [place], [place] [id number] DELVIN HEATH Self - patient is the insured MEDICAL (GENERAL) HISTORY Medical History History ICD Code Tubular adenoma removed in ; followup colonoscopy for the evaluation of some rectal bleeding in 2010 was negative other than some diverticulosis and internal hemorrhoids. GERD-EGD in 2010 revealed a small hiatal hernia, small area of Xiao's esophagus without dysplasia, and gastritis without any H. pylori Hypertension IDDM Hyperlipidemia Denies PA,CVA,Lung disease,renal disease Arthritis Sleep apnea but does not tolerate his CP AP Negative colonoscopy in 04/2016 EGD in 2016 was negative for any definitive Xiao's; there was no esophagitis; there was a small to moderate-sized hiatal hernia Surgical History Surgery Date(Month/Year) hernia vasectomy appendectomy right knee x2--most recent was 03/[address] Caro cataracts rotator cuff tear repair left- Dr. Ange espitia
--- OUTSIDE RECORDS SUMMARY | 2024-04-27 14:17 | XMS_ITS ---
Author Organization Mauricio Dale MD Address [address] [facility] [address] [place] [phone] Care Team Providers Care Fws Faculty Assistant Name Role Phone Mauricio Dale Primary Care Provider [phone] REASON FOR VISIT medication change Medications Medication SIG (Take, Route, Frequency, Duration) Notes Start Date End Date Status Basaglar KwikPen 100 UNIT/ML 55 units Subcutaneous daily for 90 days 02/18/2024 Active Encounters Encounter Location Date Provider Diagnosis Mauricio Dale MD [address] [place] [address] [place] [phone] 02/18/2024 Mauricio Dale Plan Of Treatment Medication Medication Name Sig Start Date Stop Date Notes Basaglar KwikPen 100 UNIT/ML 55 units Sims bcutaneous daily for 90 days 02/18/2024 Next Appt Details Provider Name:Mauriico Cline ier, 05/04/2024 09:30:00 AM, [address] [place] [address], [address], [phone], Progress Notes * Juvencio HEATHDOB:1950 ([age] yo M)Acc No.[id number]:02/18/2024 Patient:?Juvencio Heath :1950???Age:74 Y???Sex:Male Address:[address] [place], [address] * Refills? Start Basaglar KwikPen Solution Pen-injector, 100 UNIT/ML, Subcutaneous, 20, 55 units, daily, 90 days, Refills=4 * true * Date:? Generated for Sam macdonald/Delroy/Marcelinoitting on:?04/27/2024 02:16 PM EST
== END 2024-04-27 08:01 | disposition home or self-care (01) ==
LOC: HO.LNP 08:00
PROVIDERS: Visit Provider Internal Medicine
DX: Z00.00 Encounter for general adult medical examination without abnormal findings (principal); E11.40 Type 2 diabetes mellitus with diabetic neuropathy, unspecified; E78.00 Pure hypercholesterolemia, unspecified; I10 Essential (primary) hypertension; Z12.5 Encounter for screening for malignant neoplasm of prostate
CPT/HCPCS: 80053; 80061; 81001; 82043; 82570; 83036; 84153; 85025

== ENCOUNTER 2024-05-18 11:16 | Outpatient (REF) | payer MEDICARE, SELFPAY ==
[2024-05-18 11:20] LABS: MANUAL DIFF FLAG NO
[2024-05-18 12:13] LABS: Basophils Percent Auto 0.4 % (0-2); Eosinophils Percent Auto 0.2 % (0-4); Hematocrit 40.7 % (42.0-52.0); Hemoglobin 13.5 g/dl (14.0-18.0); Imm Gran Abs Auto 0.04 X10*3/uL (0.00-0.03); Imm Gran Pct Auto 0.7 % (0.0-0.4); Lymphocytes Absolute Auto 1.3 X10*3/uL (1.2-4.9); Lymphocytes Percent Auto 21.9 % (20-40); Mean Corpuscular HGB Conc 33.2 g/dl (31.0-36.0); Mean Corpuscular Hemoglobin 30.3 pg (27.0-33.0); Mean Corpuscular Volume 91.3 fL (80.0-98.0); Monocytes Absolute Auto 0.9 X10*3/uL (0.1-1.2); Monocytes Percent Auto 15.1 % (2-11); Neutrophils Absolute Auto 3.5 x10*3/uL (2.0-8.3); Neutrophils Percent Auto 61.7 % (45-73); Platelet Count 154 X10*3/uL (160-400); Red Blood Count 4.46 X10*6/uL (4.60-5.80); Red Cell Distribution Width 13.6 % (11.0-16.0); White Blood Count 5.7 X10*3/uL (4.8-10.8)
--- OUTSIDE RECORDS SUMMARY | 2024-05-18 12:36 | XMS_ITS ---
Author Organization Mauricio Dale MD Address [address] [place], [place] [id number] Care Team Providers Care Video Production Coordinator Name Role Phone Mauricio Dale Primary Care Provider Allergies No Known Allergies REASON FOR VISIT ANNUAL FORMS Medications Medication SIG (Take, Route, Frequency, Duration) Notes Start Date End Date Status CeleBREX 200 MG 1 capsule with food Orally QOD for 90 days 10/25/2020 Not-Takin g Sildenafil Citrate 100 MG 1 tablet as needed Orally Once a day for 30 day(s) 01/24/2018 Not-Max ing metFORMIN HCl 500 MG 2 tablet with a justyna l Orally twice a day Active Januvia 100 MG TAKE 1 TABLET BY HILARY TH EVERY DAY Orally Once a day Active Basaglar KwikPen 100 UNIT/ML 58 units Subcutaneous daily 02/18/2024 Active Valsartan-hydroCHLOROth iazide 320-12.5 MG 1 tablet Orally Once a day Active Omeprazole 20 MG TAKE 1 CAPSULE ONCE DAILY Active Atorvastatin Calcium 40 MG TAKE 1 TABLET DAILY Orally Once a day Active Farxiga 5 MG TAKE 1 TABLET BY HILARY TH EVERY DAY IN THE MORNING Orally Once a day Active Aspir-81 81 MG 1 tablet Orally Once a day Active OneTouch Ultra Test - as directed In Vit ro test daily for 90 days 08/25/2018 Active One Touch Delica Lancets 0 1 lancet invitro DX: E 11.9 use to test blood sugar once a day for 30 days 12/01/2018 Active FreeStyle Lorene 2 Sensor - USE DIRECTED for 84 Activ e BD Pen Needle Short U/F 31G X 8 MM USE DIRECTED SUBCUTANEOUSLY DAILY three times a day for 90 days Active Social History Tobacco Use: Social History Observation Description Date Details (start date - stop date) Former Smoker NA - NA Tobacco Use/Smoking Question Answer Notes Patient is a former smoker How long has it been since y ou last smoked? > 10 years Additional Findings: Tobacco Non-User Fo rmer smoker, currently using no form of tobacco Alcohol Screen Question Answer Notes Did you have a drink contain ing alcohol in the past year? Yes How often did you have a dri nk containing alcohol in the past year? 2 to 3 times a week (3 points) How often did you have 6 or more drinks on one occasion in the past year? Never (0 point) Points 3 Interpretation Negative Problems Problem Type SNOMED Code ICD Code Onset Dates Problem Status W/U Status Risk Notes Problem Monocytosis (D72.821) Active confirmed Vital Signs Blood pressure systolic 122 mm Hg 05/04/19 25 Blood pressure diastolic 56 mm Hg 025 Height 67 in 05/04/2024 Weight 200 lbs 05/04/2024 BMI 31.32 kg/m2 05/04/2024 weight is down 2 pounds [facility] e 02-22-24 Encounters Encounter Location Date Provider Diagnosis Mauricio Dale MD [address] [place], [place] [phone] 05/04/2024 Mauricio Dale Monocytosis D72.821 ; Annual physical exam Z00.00 ; Type 2 diabetes mellitus without complications E11.9 ; Hypercholesteremia E78.00 ; Essential hypertension I10 ; Barretts esophagus without dysplasia K22.70 ; 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 ; Colon cancer screening Z12.11 and Depression screening Z13.31 Assessments Encounter Date Diagnosis (ICD Code) Assessment Notes Treatment Notes Treatment Clinical Notes Section Notes 05/04/2024 Monocytosis (ICD-10 - D72.821) pending lab, will continue to monitor 05/04/2024 Annual physical exam (ICD-10 - Z00.00) labs reviewed and discussed with patient 05/04/2024 Type 2 diabetes mellitus without complications (ICD-10 - E11.9) stable, will continue current regiment 05/04/2024 Hypercholesteremia (ICD-10 - E78.00) well controlled, will continue current regiment 05/04/2024 Essential hypertensi on (ICD-10 - I10) 05/04/2024 Barretts esophagus without dysplasia (ICD-10 - K22.70) followed by dr portillo 05/04/2024 DM type 2 with diabetic peripheral neuropathy (ICD-10 - E11.42) try to control sugar better. does not want medss 05/04/2024 Colon cancer screeni ng (ICD-10 - Z12.11) 05/04/2024 Depression screening (ICD-10 - Z13.31) Plan Of Treatment Medication Medication Name Sig Start Date Stop Date Notes metFORMIN HCl 500 MG 2 tablet with a justyna l Orally twice a day Januvia 100 MG TAKE 1 TABLET BY HILARY TH EVERY DAY Orally Once a day Basaglar KwikPen 100 UNIT/ML 58 units Subcutaneous daily 1 04/19/2023 Valsartan-hydroCHLOROthiazid e 320-12.5 MG 1 tablet Orally Once a day Omeprazole 20 MG TAKE 1 CAPSULE ONCE DAILY Atorvastatin Calcium 40 MG TAKE 1 TABLET DAILY Orally Once a day Farxiga 5 MG TAKE 1 TABLET BY HILARY TH EVERY DAY IN THE MORNING Orally Once a day Treatment Notes Assessment Notes Monocytosis pending lab, will co ntinue to monitor Annual physical exam labs reviewed and d iscussed with patient Type 2 diabetes mellitus without complic ations stable, will continue current regiment Hypercholesteremia well controlled, adalid l continue current regiment Barretts esophagus without dysplasia fol lowed by dr portillo DM type 2 with diabetic peripheral neuro danni try to control sugar better. does not want medss Pending Test Test Name Order Date Complete Blood Count Auto Diff Next Appt Details Provider Name:Mauricio kovacs, 10/30/2024 07:15:00 AM, [address] [place] [address], [address] [place] [address], [phone], Provider Name:Mauricio kovacs, 11/06/2024 10:00:00 AM, [address] [place] [address], Suite [facility], [place], [place], [phone], Provider Name:Mauricio kovacs, 05/03/2025 07:30:00 AM, [address] [place] [address], Suite [facility], [place], [place], [phone], Provider Name:Mauricio baumr, 05/10/2025 09:30:00 AM, [address], [address], [place], [place], [phone], Progress Notes * Umang HEATHDOB:1950 ([age] yo M)Acc No.[id number]:05/04/2024 Progress Notes Patient:?Umang HEATH Provider:?Mauricio Dale MD :1950???Age:74 Y???Sex:Male Atif e:05/04/2024 Address:[address] [place] [address] [facility] [employer] [id number] Subjective: * Chief Complaints: * ???ANNUAL FORMS * HPI: ???Depression Screening:?PHQ-9?Little interest or pleasure in doing things?Not at all,?Feeling down, depressed, or hopeless?Not at all,?Trouble falling or staying asleep, or sleeping too much?Not at all,?Feeling tired or having little energy?Not at all,?Poor appetite or overeating?Not at all,?Feeling bad about yourself or that you are a failure, or have let yourself or your family down?Not at all,?Trouble concentrating on things, such as reading the newspaper or watching television?Not at all,?Moving or speaking so slowly that other people could have noticed; or the opposite, being so fidgety or restless that you have been moving around a lot more than usual?Not at all,?Thoughts that you would be better off or of hurting yourself in some way?Not at all,?Total Score?0.?Interpretation and Intervention?Depression Screening Findings?Negative,?Follow-Up for Depression?: review of PHQ-9 found negative result, no follow-up needed.?Communication Needs:?Communication Needs?Does the patient have a hearing impairment?No,?Does the patient have a vision impairment??Yes,?If yes, what is the vision impairment??Glasses,?Does the patient have a cognition impairment??No.?Fall Risk:?History?Have you had any falls with injury in the past year??No,?Have you had two or more falls in the past year??No.?SDOH Questions:?SDOH Questions?In the past year have you been worried about losing housing??No,?In the past year have you or any family members you live with been unable to get any of the following when it was really needed? Check all that apply:?None.?Symptom(s):? patient is a 74 yo male here for annual exam with review of recent labs and follow up of chronci issues. had blue light for actinic keratosis. * ROS:?General/Constitutional:?Patient denies?fatigue, headache.?Change in appetite?denies.?Chills?denies.?Fever?denies.?Ophthalmologic:?Blurred vision?denies.?Discharge?denies.?Pain?denies.?ENT:?Patient denies?decreased sense of smell, any loss of taste, sore throat.?Decreased hearing?denies.?Sore throat?denies.?Swollen glands?denies.?Endocrine:?Cold intolerance?denies.?Excessive thirst?denies.?Heat intolerance?denies.?Weight loss?denies.?Respiratory:?Cough?denies.?Shortness of breath at rest?denies.?Shortness of breath with exertion?denies.?Wheezing?denies.?Cardiovascular:?Chest pain at rest?denies.?Chest pain with exertion?denies.?Irregular heartbeat?denies.?Shortness of breath?denies.?Gastrointestinal:?Abdominal pain?denies.?Change in bowel habits?denies.?Diarrhea?denies.?Nausea?denies.?Rectal bleeding?denies.?Vomiting?denies .?Genitourinary:?Blood in urine?denies.?Difficulty urinating?denies.?Frequent urination?denies.?Musculoskeletal:?Patient denies?muscle aches.?Painful joints?denies.?Weakness?denies.?Peripheral Vascular:?Patient denies?red and blue toes.?Skin:?Dry skin?denies.?Itching?denies.?Denies?Mole(s),? changes in moles, new moles or any lesions of concern.?Denies?Photosensitivity.?Rash?denies.?Neurologic:?Dizziness?denies.?Fainting?denies.?Headache?denies.? * Medical History:? * Surgical History:? * Hospitalization/Major Diagno stic Procedure:? * Family History:?Father: dece ased 62 yrs, diagnosed with Hypertension.?Mother: 82 yrs, diagnosed with Cancer, Hypertension.?1 son(s) , 1 daughter(s) . .? Father- Cardiac Mother-CVA, Denies mental health/substance abuse family history, No pertinent family medical history. * Social History:?Tobacco Use:?Tobacco Use/Smoking?Patient is a?former smoker,?How long has it been since you last smoked??> 10 years,?Additional Findings: Tobacco Non-User?Former smoker, currently using no form of tobacco.?Drugs/Alcohol:?Alcohol Screen?Did you have a drink containing alcohol in the past year??Yes,?How often did you have a drink containing alcohol in the past year??2 to 3 times a week (3 points),?How often did you have 6 or more drinks on one occasion in the past year??Never (0 point),?Points?3,?Interpretation?Negative.?Miscellaneous:?Caffeine: yes, frequency: 4-6 cups a day, more than 4 cups per day. Children: yes. Community involvements: no. Exercise: yes, walks 2 miles a day. Housing: owning. Living with: spouse. Marital status: . Pets: cats: dogs:1 dog. Travel outside of the [place]: no. * Medications:?TakingAspir-81 81 MG Tablet Delayed Release 1 tablet Orally Once a day OneTouch Ultra Test - Strip as directed In Vitro test daily One Touch Delica Lancets 0 1 lancet invitro DX: E 11.9 use to test blood sugar once a day Valsartan-hydroCHLOROthiazide 320-12.5 MG Tablet 1 tablet Orally Once a day FreeStyle Lorene 2 Sensor - Miscellaneous USE DIRECTED BD Pen Needle Short U/F 31G X 8 MM Miscellaneous USE DIRECTED SUBCUTANEOUSLY DAILY three times a day Omeprazole 20 MG Capsule Delayed Release TAKE 1 CAPSULE ONCE DAILY Atorvastatin Calcium 40 MG Tablet TAKE 1 TABLET DAILY Orally Once a day Farxiga 5 MG Tablet TAKE 1 TABLET BY MOUTH EVERY DAY IN THE MORNING Orally Once a day metFORMIN HCl 500 MG Tablet 2 tablet with a meal Orally twice a day Januvia 100 MG Tablet TAKE 1 TABLET BY MOUTH EVERY DAY Orally Once a day Basaglar KwikPen 100 UNIT/ML Solution Pen-injector 58 units Subcutaneous daily Taking Aspir-81 81 MG Tablet Delayed Release 1 tablet Orally Once a day Taking OneTouch Ultra Test - Strip as directed In Vitro test daily Taking One Touch Delica Lancets 0 1 lancet invitro DX: E 11.9 use to test blood sugar once a day Taking Valsartan-hydroCHLOROthiazide 320-12.5 MG Tablet 1 tablet Orally Once a day Taking FreeStyle Lorene 2 Sensor - Miscellaneous USE DIRECTED Taking BD Pen Needle Short U/F 31G X 8 MM Miscellaneous USE DIRECTED SUBCUTANEOUSLY DAILY three times a day Taking Omeprazole 20 MG Capsule Delayed Release TAKE 1 CAPSULE ONCE DAILY Taking Atorvastatin Calcium 40 MG Tablet TAKE 1 TABLET DAILY Orally Once a day Taking Farxiga 5 MG Tablet TAKE 1 TABLET BY MOUTH EVERY DAY IN THE MORNING Orally Once a day Taking metFORMIN HCl 500 MG Tablet 2 tablet with a meal Orally twice a day Taking Januvia 100 MG Tablet TAKE 1 TABLET BY MOUTH EVERY DAY Orally Once a day Taking Basaglar KwikPen 100 UNIT/ML Solution Pen-injector 58 units Subcutaneous daily Not-Taking/PRNCeleBREX 200 MG Capsule 1 capsule with food Orally QOD Sildenafil Citrate 100 MG Tablet 1 tablet as needed Orally Once a day Not-Taking/PRN CeleBREX 200 MG Capsule 1 capsule with food Orally QOD Not-Taking/PRN Sildenafil Citrate 100 MG Tablet 1 tablet as needed Orally Once a day DiscontinuedLantus SoloStar 100 UNIT/ML Solution Pen-injector INJECT 55 UNITS UNDER THE SKIN ONCE DAILY Medication List reviewed and reconciled with the patientDiscontinued Lantus SoloStar 100 UNIT/ML Solution Pen-injector INJECT 55 UNITS UNDER THE SKIN ONCE DAILY Medication List reviewed and reconciled with the patient * Allergies:?N.K.D.A.yes[Aller gies Verified] Objective: * Vitals:?Ht: 67, Wt: 200, BMI :31.32, BP:122/56, Wt-k.72. weight is down 2 pounds since 02-22-24. * ???Past Orders: ???Lab:Hemoglobin A1c (Order Date - 04/27/2024) (Collection Date & Time - 04/27/2024 08:00 AM) ? Value Reference Range ?Hemoglobin A1c % 8.1 H <6. 0 - % ?Estimated Average Glucose 186 - mg/dL ???Lab:Complete Blood Count Auto Diff (Order Date - 04/27/2024) (Collection Date & Time - 04/27/2024 08:00 AM) ? Value Reference Range ?White Blood Count 5.6 4. 8-10.8 - X10*3/uL ?Red Blood Count 4.64 4.60 -5.80 - X10*6/uL ?Hemoglobin 14.0 14.0-18.0 - g/dl ?Hematocrit 42.7 42.0-52.0 - % ?Mean Corpuscular Volume 92.0 80.0-98.0 - fL ?Mean Corpuscular Hemoglobin 30.2 27.0-33.0 - pg ?Mean Corpuscular HGB Conc 32.8 31.0-36.0 - g/dl ?Red Cell Distribution Width 13.8 11.0-16.0 - % ?Platelet Count 161 160-4 00 - X10*3/uL ?Mean Platelet Volume 9.8 9.4-12.4 - fL ?Neutrophils Percent Auto 51.7 45-73 - % ?Imm Gran Pct Auto 1.3 H 0. 0-0.4 - % ?Lymphocytes Percent Auto 26.8 20-40 - % ?Monocytes Percent Auto 18.4 H 2-11 - % ?Eosinophils Percent Auto 1.3 0-4 - % ?Basophils Percent Auto 0.5 0-2 - % ?NRBC Pct Auto 0.0 0.0-0. 2 - /100WBC ?Neutrophils Absolute Auto 2.9 2.0-8.3 - x10*3/uL ?Imm Gran Abs Auto 0.07 H 0. 00-0.03 - X10*3/uL ?Lymphocytes Absolute Auto 1.5 1.2-4.9 - X10*3/uL ?Monocytes Absolute Auto 1.0 0.1-1.2 - X10*3/uL ?Eosinophils Absolute Auto 0.1 0.0-0.4 - X10*3/uL ?Basophils Absolute Auto 0.0 0.0-0.2 - X10*3/uL ?NRBC Abs Auto 0.000 0.0-0. 012 - X10*3/uL ???Lab: ClnCatch+Micro w/r flx Cult (Order Date - 04/27/2024) (Collection Date & Time - 04/27/2024 08:00 AM) ? Value Reference Range ?Color Urine Yellow - ?Appearance Urine Clear - ?PH 5.5 5.0-9.0 - ?Glucose Urine UA >=1000 A Neg ative - mg/dL ?Urine Blood Negative Negative - ?Specific [place] - Urine >= 1.030 H 1.005-1.025 - ?Urine Protein Trace Neg-Tr marquis - mg/dL ?Urine Ketones Trace Negati ve - mg/dL ?Nitrite Urine Negative Negati ve - ?Leukocyte Esterase Urine Negative Negative - ?RBC Urine 0-2 0-2 - /HPF ?WBC Urine 0-5 0-5 - /HPF ?Squamous Epithelial Cell Urine 0-2 0-2 - /HPF ?Bacteria Urine None Seen None Seen - ?Hyaline Casts Urine 0-2 0-2 - /LPF ???Lab:Comprehensive [place]. P sussy Fast (Order Date - 04/27/2024) (Collection Date & Time - 04/27/2024 08:00 AM) ? Value Reference Range ?Sodium 144 135-145 - mmo l/L ?Bilirubin Total 0.7 0.0- 1.0 - mg/dL ?Aspartate Amino Transferase 34 5-37 - U/L ?Alanine Aminotransferase 50 H 0-40 - U/L ?Total Protein 7.5 6.5-8. 0 - g/dL ?Albumin Level 4.3 3.5-5. 0 - g/dL ?Alkaline Phosphatase 107 39-117 - U/L ?Potassium 4.0 3.3-5.1 - mmol/L ?Chloride 109 H 96-108 - mm ol/L ?Carbon Dioxide 27 22-29 - mmol/L ?Anion Gap 12 12-20 - ?Blood Urea Nitrogen 18 H 9-16 - mg/dL ?Creatinine 0.79 0.5-1.4 - mg/dL ?Estimated Glomerular Filt Rate > 60 - ?Glucose Fasting 159 H 60-9 9 - mg/dL ?Calcium 9.3 8.4-10.2 - m g/dL ???Lab:Lipid Panel (Order Da te - 04/27/2024) (Collection Date & Time - 04/27/2024 08:00 AM) ? Value Reference Range ?Triglycerides 239 H <150 - mg/dL ?Cholesterol 172 <200 - m g/dL ?LDL Cholesterol Calculated 91 <100 - mg/dL ?HDL Cholesterol 34 L >40 - mg/dL ???Lab:PSA,Total (Free>4and< 10) (Order Date - 04/27/2024) (Collection Date & Time - 04/27/2024 08:00 AM) ? Value Reference Range ?PSA,Total (Free>4and<10) 1.66 0.00-4.00 - ng/mL ???Lab:Microalbumin, Random (Order 04/27/2024) (Collection Date & Time - 04/27/2024 08:00 AM) ? Value Reference Range ?Creatinine Urine 130.05 - m g/dL ?Microalbumin Urine 46.0 - mg/L ?Microalbum Creatinine Ratio Ur 35.3 H <30 - ug/mg cr * Examination: ???General Examination: ?GENERAL APPEARANCE:?well developed, well nourished, in no acute distress.?HEAD:?normocephalic, atraumatic.?EYES:?pupils equal, round, reactive to light and accommodation, sclera non-icteric.?EARS:?normal.?ORAL CAVITY:?mucosa moist.?THROAT:?clear.?NECK/THYROID:?neck supple, full range of motion, no cervical lymphadenopathy, no bruits.?SKIN:?warm and dry, no suspicious lesions.?HEART:?regular rate and rhythm, S1, S2 normal, no murmurs.?LUNGS:?clear to auscultation bilaterally.?ABDOMEN:?soft, nontender, nondistended, bowel sounds present, normal, no organomegaly , no masses palpable.?RECTAL EXAM:?normal tone, no external hemorrhoids, no masses palpable, prostate normal, stool guaiac negative.?MALE GENITOURINARY:?uncircumcised, testes descended bilaterally, no testicular mass.?EXTREMITIES:?no clubbing, cyanosis, or edema.?NEUROLOGIC:?nonfocal, motor strength normal upper and lower extremities, sensory exam intact.?PODIATRIC:?no pulses, no pinprick and light touch to prison to knees.?FOOT EXAM:?.? Assessment: * Assessment: 1.?Annual physical exam - Z0 0.00 (Primary)???2.?Monocytosis - D72.821???3.?Type 2 diabetes mellitus without complications - E11.9???4.?Hypercholesteremia - E78.00???5.?Essential hypertension - I10???6.?Barretts esophagus without dysplasia - K22.70???7.?DM type 2 with diabetic peripheral neuropathy - E11.42???8.?Colon cancer screening - Z12.11???9.?Depression screening - Z13.31??? Plan: * Treatment: 2.?Monocytosis?LAB: Complete Blood Count Auto Diff (Ordered for 05/18/2024) Notes: pending lab, will continue to monitor?? 3.?Type 2 diabetes mellitus without complications? Notes: stable, will continue current regiment?? 4.?Hypercholesteremia? Continue Atorvastatin Calcium Tablet, 40 MG, TAKE 1 TABLET DAILY, Orally, Once a day;?Continue Farxiga Tablet, 5 MG, TAKE 1 TABLET BY MOUTH EVERY DAY IN THE MORNING, Orally, Once a day;?Continue metFORMIN HCl Tablet, 500 MG, 2 tablet with a meal, Orally, twice a day;?Continue Januvia Tablet, 100 MG, TAKE 1 TABLET BY MOUTH EVERY DAY, Orally, Once a day;?Continue Basaglar KwikPen Solution Pen-injector, 100 UNIT/ML, 58 units, Subcutaneous, daily.?? Notes: well controlled, will continue current regiment?? 5.?Essential hypertension? Continue Valsartan-hydroCHLOROthiazide Tablet, 320-12.5 MG, 1 tablet, Orally, Once a day.?? 6.?Barretts esophagus withou t dysplasia? Continue Omeprazole Capsule Delayed Release, 20 MG, TAKE 1 CAPSULE ONCE DAILY.?? Notes: followed by dr portillo?? 7.?DM type 2 with diabetic p eripheral neuropathy? Notes: try to control sugar better. does not want medss?? * Procedure Codes:? * Preventive Medicine:? ??Diabetes Care Plan:?Patient Lifestyle Goals?Needs to maintain diet control.?Treatment Goals?A1C< 7.?Barriers ?Needs better diet control.?Self- Managment Plan?Increase light exercise to 3 times a week for 30 minutes.?Expected Outcome?maintaining stable blood sugar levels within a target range.? * * Sign off status: Completed true * Provider:?Mauricio Dale MD Date:?0 05/04/2024 Generated for Sam macdonald/Delroy/Aristeosmitting on:?05/18/2024 12:36 PM EST History and Physical Notes * HPI (History of Present Illness) Category Sub-Category Detail Notes Category Not es Symptom(s) patient is a 74 yo male here for annual exam with review of recent labs and follow up of chronci issues. had blue light for actinic keratosis Depression Screening PHQ-9 Little inte rest or pleasure in doing things: Not at all Feeling down, depressed, or hopeless: No t at all Trouble falling or staying asleep, or sl eeping too much: Not at all Feeling tired or having little energy: N ot at all Poor appetite or overeating: Not at all Feeling bad about yourself o r that you are a failure, or have let yourself or your family down: Not at all Trouble concentrating on thi ngs, such as reading the newspaper or watching television: Not at all Moving or speaking so slowly that other people could have noticed; or the opposite, being so fidgety or restless that you have been moving around a lot more than usual: Not at all Thoughts that you would be b karlie off or of hurting yourself in some way: Not at all Total Score: 0 Interpretation and Intervention Depression Trey arevalo Findings: Negative Follow-Up for Depression: : review of PH Q-9 found negative result, no follow-up needed SDOH Questions SDOH Questions In the past year have you been worried about losing housing?: No In the past year have you or any family members you live with been unable to get any of the following when it was really needed? Check all that apply:: None Fall Risk History Have you had any falls with injury i n the past year?: No Have you had two or more falls in the st year?: No Communication Needs Communication Needs Does the patient have a hearing impairment: No Does the patient have a vision impairmen t?: Yes ?If yes, what is the vision impairment?: Glasses Does the patient have a cognition impair ment?: No Examination Category Sub-Category Detail Notes Category Not es General Examination GENERAL APPEARANCE: well dev eloped, well nourished, in no acute distress HEAD: normocephalic, atrau matic EYES: pupils equal, round, reactive to light and accommodation, sclera non-icteric EARS: normal THROAT: clear NECK/THYROID: neck supple, full ra nge of motion, no cervical lymphadenopathy, no bruits HEART: regular rate and rhy thm, S1, S2 normal, no murmurs LUNGS: clear to auscultatio n bilaterally ABDOMEN: soft, nontender, non distended, bowel sounds present, normal, no organomegaly , no masses palpable NEUROLOGIC: nonfocal, motor stre ngth normal upper and lower extremities, sensory exam intact SKIN: warm and dry, no jayleen picious lesions EXTREMITIES: no clubbing, cyanosi s, or edema MALE GENITOURINARY: uncircumcised, teste s descended bilaterally, no testicular mass RECTAL EXAM: normal tone, no exte rnal hemorrhoids, no masses palpable, prostate normal, stool guaiac negative ORAL CAVITY: mucosa moist FOOT EXAM: Date: 05/04/2024 no pulses no pi nprick and lite touch to prison to knees PODIATRIC: no pulses, no pinpri ck and light touch to prison to knees
--- OUTSIDE RECORDS SUMMARY | 2024-05-18 12:36 | XMS_ITS ---
Author Organization Mauricio Dale MD Address [address] [place], [place] [phone] Care Team Providers Care Hand Drawer In Name Role Phone Mauricio Dale Primary Care Provider Results Component Value Reference Range Notes Complete Blood Count Auto Di ff (Not yet reviewed by provider) Interpretation: Performing Lab:[facility], [address] [place] [phone] Notes/Report: White Blood Count 5.7 4.8-10.8 X10*3/uL Red Blood Count 4.46 4.60-5.80 X10*6/uL Hemoglobin 13.5 14.0-18.0 g/dl Hematocrit 40.7 42.0-52.0 % Mean Corpuscular Volume 91.3 80.0-98.0 fL Mean Corpuscular Hemoglobin 30.3 27.0-33.0 pg Mean Corpuscular HGB Conc 33.2 31.0-36.0 g/dl Red Cell Distribution Width 13.6 11.0-16.0 % Platelet Count 154 160-400 X10*3/uL Mean Platelet Volume 10.0 9.4-12.4 fL Neutrophils Percent Auto 61.7 45-73 % Imm Gran Pct Auto 0.7 0.0-0.4 % Lymphocytes Percent Auto 21.9 20-40 % Monocytes Percent Auto 15.1 2-11 % Eosinophils Percent Auto 0.2 0-4 % Basophils Percent Auto 0.4 0-2 % NRBC Pct Auto 0.0 0.0-0.2 /100WBC Neutrophils Absolute Auto 3.5 2.0-8.3 x10*3/u L Imm Gran Abs Auto 0.04 0.00-0.03 X10*3/uL Lymphocytes Absolute Auto 1.3 1.2-4.9 X10*3/u L Monocytes Absolute Auto 0.9 0.1-1.2 X10*3/uL Eosinophils Absolute Auto 0.0 0.0-0.4 X10*3/u L Basophils Absolute Auto 0.0 0.0-0.2 X10*3/uL NRBC Abs Auto 0.000 0.0-0.012 X10*3/uL REASON FOR VISIT CBC with diff Encounters Encounter Location Date Provider Diagnosis Mauricio Dale MD [address] [place] [phone] 05/18/2024 Mauricio Dale Monocytosis D72.821 Assessments Encounter Date Diagnosis (ICD Code) Assessment Notes Treatment Notes Treatment Clinical Notes Section Notes 05/18/2024 Monocytosis (ICD-10 - D72.821) Plan Of Treatment Pending Test Test Name Order Date Complete Blood Count Auto Diff Next Appt Details Provider Name:Mauricio kovacs, 10/30/2024 07:15:00 AM, [address] [place] [address], [phone], Provider Name:Mauricio kovacs, 11/06/2024 10:00:00 AM, [address] [place] [address], [phone], Provider Name:Mauricio kovacs, 05/03/2025 07:30:00 AM, [address] [place] [address], [address], [phone], Provider Name:Mauricio baumr, 05/10/2025 09:30:00 AM, [address] [place] [address], [phone], Progress Notes * Rian HEATHB:1950 ([age] yo M)Acc No.[id number]:05/18/2024 Progress Note Patient:?Umang HEATH Provider:?Mauricio Dale MD :1950???Age:74 Y???Sex:Male Atif e:05/18/2024 Address: [id number] Subjective: * Chief Complaints: * ???1. CBC with diff. * Medical History:? Objective: * Vitals:? Assessment: * Assessment: 1.?Monocytosis - D72.821 (Pr imary)??? Plan: * Treatment: * Procedure Codes:?70782 VENIP UNCT, ROUTINE* * * The named appointment provid er may or may not be the originator of this progress note, and it is not deemed complete until electronically signed by the appointment provider. Sign off status: Pending * Provider:?Mauricio Dale MD Date:?0 05/18/2024 Generated for Sam macdonald/Delroy/Marcelinoitting on:?05/18/2024 12:36 PM EST
--- OUTSIDE RECORDS SUMMARY | 2024-05-18 12:37 | XMS_ITS | Patient Health Record ---
Author Organization [facility] Address [address] [place] [phone] Care Team Providers Care Truck Driver Supervisor Name Role Phone Mauricio Dale MD Primary Care Provider Thien Johnson Unavailable [phone] ALLERGIES No Known Allergies REASON FOR REFERRAL [...] malignant neoplasm of colon (Z12.11) Active confirmed [id number] Problem History of adenomatous polyp of colon (Z86.010) Active confirmed 728927590 Problem Encounter for screening for malignant neoplasm of rectum (Z12.12) Active confirmed Screening for malignant neoplasm of rectum (773019134) Problem Gastroesophageal reflux disease without esophagitis (K21.9) Active confirmed 089123234 Problem Barretts esophagus without dysplasia (K22.70) Active confirmed 246169034 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 Xiao esophag us (587210302) Problem Gastroesophageal reflux (K21.9) Active confirmed Esophageal re flux finding (217617384) Problem GERD without esophagitis (K21.9) Active confirmed Gastroes ophageal reflux disease (112807819) Problem Diverticulosis of colon (K57.30) Active confirmed Diverticulosi s of colon (887110038) Problem 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 pylori Hypertension IDDM Hyperlipidemia Denies [place],CVA,Lung disease,renal disease Arthritis Sleep apnea but does [...]
--- OUTSIDE RECORDS SUMMARY | 2024-05-18 12:37 | XMS_ITS ---
Author Organization Mauricio Dale MD Address [address] [place], [place] [phone] Care Team Providers Care Drafter Marine Name Role Phone Mauricio Dale Primary Care Provider Results Component Value Reference Range Notes Complete Blood Count Auto Di ff Reviewed date:04/27/2024 12:21:20 PM Interpretation: Performing Lab:[facility], [address] [place] [phone] Notes/Report: White Blood Count 5.6 4.8-10.8 X10*3/uL [...] NRBC Abs Auto 0.000 0.0-0.012 X10*3/uL Comprehensive [place]. Panel Fa st Reviewed date:04/27/2024 12:17:59 PM Interpretation: Performing Lab:[address] [phone] Notes/Report: Sodium 144 135-145 mmol/L Potassium 4.0 [...] Panel Reviewed date:04/27/2024 12:18:16 PM Interpretation: Performing Lab:[address] [phone] Notes/Report: Triglycerides 239 <150 mg/dL Desirable Triglyceride: [...] (Free>4and<10) Reviewed date:04/27/2024 12:18:08 PM Interpretation: Performing Lab:[address] [phone] Notes/Report: PSA,Total (Free>4and<10) 1.66 0.00-4.00 ng/mL A [...] Random Reviewed date:04/27/2024 12:21:53 PM Interpretation: Performing Lab:[address] [phone] Notes/Report: Creatinine Urine 130.05 Microalbumin Urine 46.0 Microalbum/Creatinine Ratio Ur 35.3 <30 ug/mg cr Albumin/Creatinine Ratio Reference Ranges: Normal: < 30 ug/mg creatinine Microalbuminuria: 30 - 300 ug/mg creatinine Clinical Albuminuria: > 300 ug/mg creatinine Hemoglobin A1c Reviewed date:04/27/2024 12:14:06 PM Interpretation: Performing Lab:[address] [phone] Notes/Report: Hemoglobin A1c % 8.1 <6.0 % [...] average glucose, using the formula of the [id number] Average Glucose study (ADAG), Diabetes Care, Vol.31,#8, Oct. 2007 UA ClnCatch+Micro w/rflx Cul t Reviewed date:04/27/2024 12:14:34 PM Interpretation: Performing Lab:[facility], [address] [place] [phone] Notes/Report: [id number] Urine, Clean Catch Color Urine Yellow Appearance Urine Clear PH 5.5 5.0-9.0 Glucose Urine UA >=1000 Negative mg/dL Urine Blood Negative Negative Specific [place] - Urine >= 1.030 1.005-1.025 Urine Protein [...] Date Provider Diagnosis Mauricio Dale MD [address] [facility] [address] [place], [place] [phone] 04/27/2024 Mauricio Dale Blood tests for rout [...] Next Appt Details Provider Name:Mauricio Cline ier, 10/30/2024 07:15:00 AM, [address], [address], [place], [phone], Provider Name:Mauricio Cline ier, 11/06/2024 10:00:00 AM, [address], [address], [place], [phone], Provider Name:Mauricio Cline ier, 05/03/2025 07:30:00 AM, [address], [address], [place], [phone], Provider Name:Mauricio Cline ier, 05/10/2025 09:30:00 AM, [address], [address], [place], [phone], Progress Notes * Umang KAISERDOB:1950 ([age] yo M)Acc No.[id number]:04/27/2024 Progress Note Patient:?Umang KAISER Provider:?Mauricio Dale MD :1950???Age:74 Y???Sex:Male Atif e:04/27/2024 Address:[address] [place], [place] [phone] Subjective: * Chief Complaints: * ???1. FASTING [...] Time - 04/27/2024 08:00 AM) ?LAB: Comprehensive [place]. Panel Fast (Collection Date & Time - 04/27/2024 08:00 AM) ?LAB: Lipid Panel (Collection Date & Time - 04/27/2024 08:00 AM) ?LAB: PSA,Total (Free>4and<10) (Collection Date & Time - 04/27/2024 08:00 AM) ?LAB: Microalbumin, Random (Collection Date & Time 04/27/2024 08:00 AM) ?LAB: Hemoglobin A1c (Collection Date & Time 04/27/2024 08:00 AM) ?LAB: UA ClnCatch+Micro w/rflx Cult (Collection Date & Time - 04/27/2024 08:00 AM) 3.?Hypercholesteremia?LAB: Complete Blood Count Auto Diff (Collection & Time - 04/27/2024 08:00 AM) ?LAB: Comprehensive [place]. Panel Fast (Collection Date & Time 04/27/2024 08:00 AM) ?LAB: Lipid Panel (Collection Date & Time 04/27/2024 08:00 AM) ?LAB: PSA,Total (Free>4and<10) (Collection Date & Time 04/27/2024 08:00 AM) ?LAB: Microalbumin, Random (Collection Date & Time 04/27/2024 08:00 AM) ?LAB: Hemoglobin A1c (Collection & Time 04/27/2024 08:00 AM) ?LAB: UA ClnCatch+Micro w/rflx Cult (Collection Date & Time 04/27/2024 08:00 AM) 4.?Essential hypertension?LAB: Complete Blood Count Auto Diff (Collection Date & Time 04/27/2024 08:00 AM) ?LAB: Comprehensive [place]. Panel Fast (Collection Date & Time 04/27/2024 08:00 AM) ?LAB: Lipid Panel (Collection Date & Time - 04/27/2024 08:00 AM) ?LAB: PSA,Total (Free>4and<10) (Collection Date & Time - 04/27/2024 08:00 AM) ?LAB: Microalbumin, Random (Collection Date & Time - 04/27/2024 08:00 AM) ?LAB: Hemoglobin A1c (Collection Date & Time - 04/27/2024 08:00 AM) ?LAB: UA ClnCatch+Micro w/rflx Cult (Collection Date & Time - 04/27/2024 08:00 AM) * Procedure Codes:?35486 VENIP UNCT, ROUTINE* * * The named appointment provid er may or may not be the originator of this progress note, and it is not deemed complete until electronically signed by the appointment provider. Sign off status: Pending * Provider:?Mauricio Dale MD Date:?0 04/27/2024 Generated for Sam macdonald/Delroy/Vladimir on:?05/18/2024 12:36 PM EST
== END 2024-05-18 11:17 | disposition home or self-care (01) ==
LOC: HO.LNP 11:16
PROVIDERS: Visit Provider Internal Medicine
DX: D72.821 Monocytosis (symptomatic) (principal)
CPT/HCPCS: 85025

== ENCOUNTER 2024-05-25 15:54 | Emergency (ER) | payer MEDICARE, SELFPAY ==
--- NOTE | ~2024-05-25 | XR_ITS ---
EXAMINATION: XR CHEST CLINICAL INFORMATION: subjective fever, chills. pneumonia? COMPARISON: None available. TECHNIQUE: Frontal view of the chest was obtained. FINDINGS: The cardiac, hilar, and mediastinal contours are normal. Aortic mural calcifications. The lungs are mildly hyperaerated, however clear bilaterally. No pneumothorax or effusion. No focal osseous or soft tissue abnormality. Mild spinal degenerative changes. XR/XR chest 1V IMPRESSION: No active pulmonary disease. Electronically signed by: Antonio Harris MD 05/25/2024 04:48 PM EST
[2024-05-25 15:58] VITALS: BP 119/58; PULSE 88; RESP 18; TEMP 36.9; O2SAT 95; BMI 30.3
--- NOTE | 2024-05-25 16:04 | ED.GENADULT ---
HPI - General Adult General Chief complaint: Upper Respiratory Symptoms Stated complaint: ? Sepsis Dr. watt in Time Seen by Provider: 05/25/24 17:55 Source: patient Limitations: no limitations History of Present Illness ED Provider: Sheree Jones PA-C HPI narrative: 74-year-old male with a history of hyperlipidemia, diabetes, hypertension, GERD presents with concern for sepsis. Patient states he has been having generalized malaise, chills and night sweats at home. He saw his primary care provider today who advised he go to the emergency department for further assessment. The patient denies fever, abdominal pain, nausea, vomiting, diarrhea. Denies dysuria. Denies cough or cold symptoms. Related Data Home Medications ?Medication ?Instructions ?Recorded ?Confirmed atorvastatin 40 mg tablet 40 mg PO DAILY 09/03/20 09/16/21 metformin 500 mg tablet 500 mg PO DAILY 09/03/20 09/16/21 omeprazole 20 mg capsule,delayed 20 mg PO DAILY 09/03/20 09/16/21 release sitagliptin phosphate 100 mg 100 mg PO DAILY 09/03/20 09/16/21 tablet (Januvia) valsartan 320 1 tab PO DAILY 09/03/20 09/16/21 mg-hydrochlorothiazide 12.5 mg tablet aspirin 81 mg tablet,delayed 81 mg PO DAILY 09/16/21 09/16/21 release insulin glargine 100 unit/mL (3 ea subcut 09/16/21 09/16/21 mL) subcutaneous pen (Lantus Solostar U-100 Insulin) multivitamin 1 tab PO DAILY 09/16/21 09/16/21 Previous Rx's ?Medication ?Instructions ?Recorded celecoxib 200 mg capsule 200 mg PO DAILY #30 caps 10/31/20 Allergies Allergy/AdvReac Type Severity Reaction Status Date / Time No Known Allergies Allergy Verified 05/25/24 16:00 [No Known Allergies*] Review of Systems Review of Systems: Yes all other systems are reviewed and are negative Constitutional: Constitutional: Reports body ache(s), Reports chills, Reports fatigue, Denies fever(s), Reports malaise and Reports poor appetite Cardiovascular: Cardiovascular: Denies chest pain and Denies dyspnea Respiratory: Respiratory: Denies cough and Denies dyspnea Gastrointestinal: Gastrointestinal: Denies abdominal pain, Denies diarrhea, Denies nausea and Denies vomiting Genitourinary: Genitourinary: Denies dysuria Musculoskeletal: Musculoskeletal: Reports myalgias Endocrine: Endocrine: Reports fatigue PMFSH Past Medical History Attestation statement: The following information was validated with the patient. Medical History Arthritis Diabetes Elevated cholesterol GERD (gastroesophageal reflux disease) Hypertension Skin cancer Sleep apnea Surgical History H/O colonoscopy H/O right knee surgery History of appendectomy History of esophagogastroduodenoscopy (EGD) Hx of cataract extraction Hx of hernia repair Hx of repair of rotator cuff Hx of vasectomy Social History Social History Patient Tobacco Use Status: Former Tobacco user Current occupational status: retired Physical Exam ED Vital Signs: Vital Signs - 24 hr 05/25/24 15:58 05/25/24 19:07 Temperature 98.4 F 98.4 F Pulse Rate 88 88 Respiratory Rate 18 18 Blood Pressure 119/58 L 119/58 L Pulse Oximetry 95 95 Oxygen Delivery Method Room Air Room Air BMI result Body Mass Index 30.3 Const Other: Alert Orientation/consciousness: patient oriented x3 Resp Effort & Inspection: normal respiratory effort Cardio Other: Normal peripheral perfusion GI Other: Abdomen is soft, nontender nondistended no guarding Skin Other: Warm dry no rash Neuro General: patient oriented x3, gait normal, no focal motor deficits and CN's II-XI intact bilaterally Psych Other: Cooperative Course Course Course Narrative: RME: 74-year-old male presents to ED for subjective fevers, chills, loss of appetite and body aches for the past week. Patient was sent in by To rule out sepsis. Patient denies any chest pain or shortness of breath. Patient denies any slurred speech facial droop or paralysis of extremity. labs, chest xray, SARS ordered Medical Decision Making Medical Decision Making MDM Narrative: 74-year-old male with a history of hyperlipidemia, diabetes, hypertension, GERD presents with concern for sepsis. Patient states he has been having generalized malaise, chills and night sweats at home. He saw his primary care provider today who advised he go to the emergency department for further assessment. The patient denies fever, abdominal pain, nausea, vomiting, diarrhea. Denies dysuria. Denies cough or cold symptoms. Problem: Diabetes History: Per patient I have considered the following differential diagnoses: UTI, pneumonia, viral syndrome, acute intra-abdominal pathology Plan: Patient here with a very vague symptoms, his primary care sent him in because his neutrophil count was elevated. All screening labs are completely normal including a viral panel urinalysis. Chest x-ray is negative for pneumonia. Patient can continue to follow up as an outpatient. I have independently reviewed the following tests: Labs: No leukocytosis, left shift noted, no electrolyte abnormality, not anemic, viral panel negative, urine not infected Chest x-ray: XR/XR chest 1V IMPRESSION: No active pulmonary disease. Electronically signed by: Antonio Harris MD 05/25/2024 04:48 PM [facility] Lab Data 05/25/24 16:19 05/25/24 16:19 Labs: Lab Results 05/25/24 Range/Units 16:19 WBC 4.9 (4.8-10.8) X10*3/uL RBC 4.77 (4.60-5.80) X10*6/uL Hgb 14.7 (14.0-18.0) g/dl Hct 42.1 (42.0-52.0) % MCV 88.3 (80.0-98.0) fL MCH 30.8 (27.0-33.0) pg MCHC 34.9 (31.0-36.0) g/dl RDW 13.5 (11.0-16.0) % Plt Count 118 L (160-400) X10*3/uL MPV 10.0 (9.4-12.4) fL Immature Gran % (Auto) 1.4 H (0.0-0.4) % Neut % (Auto) 74.5 H (45-73) % Lymph % (Auto) 13.4 L (20-40) % [place] % (Auto) 10.3 (2-11) % Eos % (Auto) 0.0 (0-4) % Baso % (Auto) 0.4 (0-2) % Lymph # (Auto) 0.7 L (1.2-4.9) X10*3/uL [place] # (Auto) 0.5 (0.1-1.2) X10*3/uL Eos # (Auto) 0.0 (0.0-0.4) X10*3/uL Baso # (Auto) 0.0 (0.0-0.2) X10*3/uL Abs Immat Gran (auto) 0.07 H (0.00-0.03) X10*3/uL Absolute Neuts (auto) 3.6 (2.0-8.3) x10*3/uL Absolute Nucleated RBC 0.000 (0.0-0.012) X10*3/uL Nucleated RBC % (auto) 0.0 (0.0-0.2) /100WBC Smear Tech's Comments VERIFIED Sodium 139 (135-145) mmol/L Potassium 4.4 (3.3-5.1) mmol/L Chloride 104 (96-108) mmol/L Carbon Dioxide 25 (22-29) mmol/L Anion Gap 14 (12-20) BUN 23 H (9-16) mg/dL Creatinine 0.90 (0.5-1.4) mg/dL Estim Creat Clear Calc 75.0 Estimated GFR > 60 Random Glucose 142 H (60-115) mg/dL Calcium 9.9 D (8.4-10.2) mg/dL Total Bilirubin 1.3 H (0.0-1.0) mg/dL AST 89 H (5-37) U/L ALT 91 H (0-40) U/L Alkaline Phosphatase 133 H (39-117) U/L Total Protein 8.2 H (6.5-8.0) g/dL Albumin 4.5 (3.5-5.0) g/dL Lipase 56 (8-78) U/L Urine Color Dark Yellow Urine Appearance Clear Urine pH 5.5 (5.0-9.0) Ur Specific [place] >= 1.030 H (1.005-1.025) Urine Protein 30 (1+) H (Neg-Trace) mg/dL Urine Glucose (UA) >=1000 H (Negative) mg/dL Urine Ketones Trace (Negative) mg/dL Urine Blood Negative (Negative) Urine Nitrite Negative (Negative) Ur Leukocyte Esterase Negative (Negative) Urine RBC 0-2 (0-2) /HPF Urine WBC 0-5 (0-5) /HPF Ur Squamous Epith Cells 0-2 (0-2) /HPF Urine Bacteria None Seen (None Seen) Hyaline Casts 0-2 (0-2) /LPF Influenza Type A (PCR) NEGATIVE (Negative) Influenza Type B (PCR) NEGATIVE (Negative) RSV RNA Qual (PCR) NEGATIVE (Negative) SARS-CoV-2 RNA (RT-PCR) NEGATIVE (Negative) Discharge Plan Discharge Clinical Impression: Chills Patient Disposition: Home, Self-Care Additional Instructions: We do not have a source for your generalized malaise with chills. All of your screening labs were normal. You do not have a urinary tract infection. We screened you for influenza a and B, RSV and COVID, the viral panel is negative. The chest x-ray is clear there was no pneumonia. Continue to follow up with your primary care provider. Prescriptions: No Action celecoxib 200 mg capsule 200 mg PO DAILY Qty: 30 3RF multivitamin Tablet 1 tab PO DAILY aspirin 81 mg Tablet,Delayed Release (Dr/Ec) 81 mg PO DAILY insulin glargine [Lantus Solostar U-100 Insulin] 100 unit/mL (3 mL) insulin pen subcut atorvastatin 40 mg tablet 40 mg PO DAILY Januvia 100 mg tablet 100 mg PO DAILY metformin 500 mg tablet 500 mg PO DAILY omeprazole 20 mg capsule,delayed release(DR/EC) 20 mg PO DAILY valsartan-hydrochlorothiazide 320-12.5 mg tablet 1 tab PO DAILY Interventions: ED Discharge Assessment Last Done: 05/25/24 19:07 Discharge Date/Time: 05/25/24 19:08 Print Language: Guyanese
[2024-05-25 16:29] LABS: Appearance Urine Clear; Color Urine Dark Yellow; Glucose Urine UA >=1000 mg/dL (Negative); Leukocyte Esterase Urine Negative (Negative); Nitrite Urine Negative (Negative); PH 5.5 (5.0-9.0); Specific Gravity - Urine >= 1.030 (1.005-1.025); UMIC TRIGGER UACC YES; Urine Blood Negative (Negative); Urine Ketones Trace mg/dL (Negative); Urine Protein 30 (1+) mg/dL (Neg-Trace)
[2024-05-25 16:30] LABS: Basophils Percent Auto 0.4 % (0-2); Lymphocytes Absolute Auto 0.7 X10*3/uL (1.2-4.9); Lymphocytes Percent Auto 13.4 % (20-40); PLT CLUMP 1; Red Cell Distribution Width 13.5 % (11.0-16.0); SCAN SMEAR FLAG 1
[2024-05-25 16:32] LABS: Hematocrit 42.1 % (42.0-52.0); Hemoglobin 14.7 g/dl (14.0-18.0); Imm Gran Abs Auto 0.07 X10*3/uL (0.00-0.03); Imm Gran Pct Auto 1.4 % (0.0-0.4); MANUAL DIFF FLAG SCAN; Mean Corpuscular HGB Conc 34.9 g/dl (31.0-36.0); Mean Corpuscular Hemoglobin 30.8 pg (27.0-33.0); Mean Corpuscular Volume 88.3 fL (80.0-98.0); Monocytes Absolute Auto 0.5 X10*3/uL (0.1-1.2); Monocytes Percent Auto 10.3 % (2-11); Neutrophils Absolute Auto 3.6 x10*3/uL (2.0-8.3); Neutrophils Percent Auto 74.5 % (45-73); Red Blood Count 4.77 X10*6/uL (4.60-5.80)
[2024-05-25 16:34] LABS: Bacteria Urine None Seen (None Seen); Hyaline Casts Urine 0-2 /LPF (0-2); RBC Urine 0-2 /HPF (0-2); Squamous Epithelial Cell Urine 0-2 /HPF (0-2); WBC Urine 0-5 /HPF (0-5)
[2024-05-25 16:44] LABS: Alanine Aminotransferase 91 U/L (0-40); Albumin Level 4.5 g/dL (3.5-5.0); Alkaline Phosphatase 133 U/L (39-117); Anion Gap 14 (12-20); Aspartate Amino Transferase 89 U/L (5-37); Bilirubin Total 1.3 mg/dL (0.0-1.0); Blood Urea Nitrogen 23 mg/dL (9-16); Calcium 9.9 mg/dL (8.4-10.2); Carbon Dioxide 25 mmol/L (22-29); Chloride 104 mmol/L (96-108); Estimated Glomerular Filt Rate > 60; Glucose Random 142 mg/dL (60-115); Lipase 56 U/L (8-78); Potassium 4.4 mmol/L (3.3-5.1); Sodium 139 mmol/L (135-145); Total Protein 8.2 g/dL (6.5-8.0)
[2024-05-25 16:48] LABS: Platelet Count 118 X10*3/uL (160-400); SLIDE REVIEW VERIFIED; White Blood Count 4.9 X10*3/uL (4.8-10.8)
[2024-05-25 17:08] LABS: Influenza A PCR NEGATIVE (Negative); Influenza B PCR NEGATIVE (Negative); Resp Syncy Virus RNA Qual PCR NEGATIVE (Negative); SARS COV2 PCR INHOUSE NEGATIVE (Negative)
[2024-05-25 19:07] VITALS: BP 119/58; PULSE 88; RESP 18; TEMP 36.9; O2SAT 95
--- OUTSIDE RECORDS SUMMARY | 2024-05-25 19:48 | XMS_ITS ---
Author Organization Mauricio Dale MD Address [address] [place], [place] [phone] Care Team Providers Care Desk Interviewer Name Role Phone Mauricio Dale Primary Care Provider Results Component Value Reference Range Notes Complete Blood Count Auto Di ff Reviewed date:05/18/2024 12:48:07 PM Interpretation: Performing Lab:[facility], [address] [place] [phone] Notes/Report: White Blood Count 5.7 4.8-10.8 X10*3/uL [...] 0.00-0.03 X10*3/uL Lymphocytes Absolute Auto 1.3 1.2-4.9 X10*3/ uL Monocytes Absolute Auto 0.9 0.1-1.2 X10*3/uL Eosinophils Absolute Auto 0.0 0.0-0.4 X10*3/u L Basophils Absolute Auto 0.0 0.0-0.2 X10*3/uL NRBC Abs Auto 0.000 0.0-0.012 X10*3/uL REASON FOR VISIT CBC with diff Encounters Encounter Location Date Provider Diagnosis Mauricio Dale MD [address] [place] [phone] 05/18/2024 Mauricio Dale Monocytosis D72.821 Assessments Encounter Date Diagnosis (ICD Code) Assessment Notes Treatment Notes Treatment Clinical Notes Section Notes 05/18/2024 Monocytosis (ICD-10 - D72.821) Plan Of Treatment Next Appt Details Provider Name:Mauricio kovacs, 10/30/2024 07:15:00 AM, [address] [place] [address], [address], [phone], Provider Name:Mauricio kovacs, 11/06/2024 10:00:00 AM, [address] [place] [address], [address], [phone], Provider Name:Mauricio kovacs, 05/03/2025 07:30:00 AM, [address] [place] [address], [phone], Provider Name:Mauricio baumr, 05/10/2025 09:30:00 AM, [address] [place] [address], [phone], Progress Notes * Umang KAISERDOB:1950 ([age] yo M)Acc No.[id number]:05/18/2024 Progress Note Patient:?Umang KAISER Provider:?Mauricio Dale MD :1950???Age:74 Y???Sex:Male Atif e:05/18/2024 [id number] Subjective: * Chief Complaints: * ???1. CBC with diff. * Medical History:? Objective: * Vitals:? Assessment: * Assessment: 1.?Monocytosis - D72.821 (Pr imary)??? Plan: * Treatment: * Procedure Codes:?38953 VENIP UNCT, ROUTINE* * * The named appointment provid er may or may not be the originator of this progress note, and it is not deemed complete until electronically signed by the appointment provider. Sign off status: Pending * Provider:?Mauricio Dale MD Date:?0 05/18/2024 Generated for Sam macdonald/Delroy/Marcelinoitting on:?05/25/2024 07:48 PM EST
--- OUTSIDE RECORDS SUMMARY | 2024-05-25 19:49 | XMS_ITS ---
Author Organization Mauricio Dale MD Address [address] [place], [place] [phone] Care Team Providers Care Plane Tableman Name Role Phone Mauricio Dale Primary Care [...] kg/m2 05/04/2024 weight is down 2 pounds [facility] e 02-22-24 Encounters Encounter Location Date Provider Diagnosis Mauricio Dale MD [address] [place], [place] [phone] 05/04/2024 Mauricio Dale Monocytosis D72.821 ; Annual [...] control sugar better. does not want medss Next Appt Details Provider Name:Mauricio kovacs, 10/30/2024 07:15:00 AM, [address] [place] [address], [address] [place] [address], [phone], Provider Name:Mauricio kovacs, 11/06/2024 10:00:00 AM, [address] [place] [address], Suite [facility], [place], [place], [phone], Provider Name:Mauricio kovacs, 05/03/2025 07:30:00 AM, [address] [place] [address], Suite [facility], [place], [place], [phone], Provider Name:Mauricio kovacs, 05/10/2025 09:30:00 AM, [address], [address], [place], [phone], Progress Notes * Umang HEATHDOB:1950 ([age] yo M)Acc No.[id number]:05/04/2024 Progress Notes Patient:Umang BAEZA Provider:?Mauricio Dale MD :1950???Age:74 Y???Sex:Male Aitf e:05/04/2024 Address:[address] [place] [address] [id number] Subjective: * Chief Complaints: * ???ANNUAL FORMS [...] Abs Auto 0.000 0.0-0. 012 - X10*3/uL ???Lab:UA ClnCatch+Micro w/r flx Cult (Order Date - 04/27/2024) (Collection Date & Time - 04/27/2024 08:00 AM) ? Value Reference Range ?Color Urine Yellow - ?Appearance Urine Clear - ?PH 5.5 5.0-9.0 - ?Glucose Urine UA >=1000 A Neg ative - mg/dL ?Urine Blood Negative Negative - ?Specific [place] - Urine >= 1.030 H 1.005-1.025 - [...] Casts Urine 0-2 0-2 - /LPF ???Lab:Comprehensive [place]. P sussy Fast (Order Date - 04/27/2024) [...] m g/dL ???Lab:Lipid Panel (Order Da te 04/27/2024) (Collection Date & Time - 04/27/2024 [...] pulses, no pinprick and light touch to fpc to knees.?FOOT EXAM:?.? Assessment: * Assessment: 1.?Annual [...] Dale MD Date:?0 05/04/2024 Generated for Sam macdonald/Delroy/Marcelinoitting on:?05/25/2024 07:48 PM EST History and Physical Notes * [...] Total Score: 0 Interpretation and Intervention Depression Sonyredd mickey Findings: Negative Follow-Up for Depression: : review [...] no pi nprick and lite touch to fpc to knees PODIATRIC: no pulses, no pinpri ck and light touch to fpc to knees
--- OUTSIDE RECORDS SUMMARY | 2024-05-25 19:49 | XMS_ITS ---
Author Organization Mauricio Dale MD Address [address] [place], [place] [id number] Care Team Providers Care Oem Sales Manager Name Role Phone Mauricio Dale Primary Care Provider Allergies No Known Allergies REASON FOR VISIT chills, sweats, no fever, coughing alittle little congested , runny nose x 4 days Covid test is negative, Video [phone] Medications Medication SIG (Take, Route, Frequency, Duration) Notes Start Date End Date Status Januvia 100 MG TAKE 1 TABLET BY HILARY TH EVERY DAY Orally Once a day Active Basaglar KwikPen 100 UNIT/ML 58 units Subcutaneous daily 02/18/2024 Active metFORMIN HCl 500 MG 2 tablet with a justyna l Orally twice a day Active Sildenafil Citrate 100 MG 1 tablet as needed Orally Once a day for 30 day(s) 01/24/2018 Not-Max ing CeleBREX 200 MG 1 capsule with food Orally QOD for 90 days 10/25/2020 Not-Takin g Farxiga 5 MG TAKE 1 TABLET BY HILARY TH EVERY DAY IN THE MORNING Orally Once a day Active Omeprazole 20 MG TAKE 1 CAPSULE ONCE DAILY Active Atorvastatin Calcium 40 MG TAKE 1 TABLET DAILY Orally Once a day Active BD Pen Needle Short U/F 31G X 8 MM USE DIRECTED SUBCUTANEOUSLY DAILY three times a day for 90 days Active Valsartan-hydroCHLOROth iazide 320-12.5 MG 1 tablet Orally Once a day Active Aspir-81 81 MG 1 tablet Orally Once a day Active OneTouch Ultra Test - as directed In Vit ro test daily for 90 days 08/25/2018 Active One Touch Delica Lancets 0 1 lancet invitro DX: E 11.9 use to test blood sugar once a day for 30 days 12/01/2018 Active DeeplinkStyle Lorene 2 Sensor - USE DIRECTED for 84 Activ e Vital Signs Height 67 in 05/25/2024 Weight 195 lbs 05/25/2024 BMI 30.54 kg/m2 05/25/2024 weight is 195 at home BP not taken no temp Encounters Encounter Location Date Provider Diagnosis Mauricio Dale MD [address] [place] [phone] 05/25/2024 Mauricio Dale Sepsis, unspecified organism A41.9 Assessments Encounter Date Diagnosis (ICD Code) Assessment Notes Treatment Notes Treatment Clinical Notes Section Notes 05/25/2024 Sepsis, unspecified organism (ICD-10 - A41.9) with the rigors and lethargy am concerned that he is having sepsis and sent him to the emergency room Plan Of Treatment Treatment Notes Assessment Notes Sepsis, unspecified organism with the ri gors and lethargy am concerned that he is having sepsis and sent him to the emergency room Next Appt Details Provider Name:Mauricio kovacs, 10/30/2024 07:15:00 AM, [address] [place] [address], [address], [phone], Provider Name:Mauricio kovacs, 11/06/2024 10:00:00 AM, [address] [place] [address], [phone], Provider Name:Mauricio kovacs, 05/03/2025 07:30:00 AM, [address] [place] [address], [address], [phone], Provider Name:Mauricio kovacs, 05/10/2025 09:30:00 AM, [address] [place] [address], [phone], Progress Notes * Umang HEATHDOB:1950 ([age] yo M)Acc No.[id number]:05/25/2024 Patient:?Umang HEATH Provider:?Mauricio Dale MD :1950???Age:74 Y???Sex:Male Atif e:05/25/2024 Address: [place] [phone] Subjective: * Chief Complaints: * ???1. chills, sweats, no fev er, coughing alittle little congested , runny nose x 4 days Covid test is negative. 2. Video [phone]. * HPI: ???Symptom(s):?Telehealth?Location of provider rendering services:?[address], [address],?Location of patient:?at address listed in demographics for today's visit,?Patient identification confirmed using:?Name, ,?Telehealth method:?Telephone only. Patient not visible to care provider.,?Consent:?Patient verbally consented to treatment, Patient verbally consented to billing insurance company, Patient informed of any privacy concerns related to method of visit,?Total time spend talking with patient (minutes)?16.?patient is a 74 yo male here as emergency. last 4 days had shakes sweats, no fever. 2 covid tests today. no appetite. says he is lethargic. shakes uncontrollably accordint to . no cough. no urinary symptoms. * ROS:?General/Constitutional:?Admits?Chills.?Denies?Fatigue.?Denies?Fever.?Denies?Headache.?ENT:?Patient denies?decreased sense of smell, any loss of taste, sore throat.?Denies?Sore throat.?Respiratory:?Denies?Cough.?Denies?Shortness of breath at rest.?Denies?Shortness of breath with exertion.?Gastrointestinal:?Denies?Diarrhea.?Denies?Nausea.?Musculoskeletal:?Patient denies?muscle aches.?Peripheral Vascular:?Patient denies?red and blue toes.? * Medical History:?Hx. colon p olyps - Dr. Okeefe - had colonoscopy & Endo 09/09/16 - repeat 5 years done in 2021, Colonoscopy 09/22 21 repeat in 5 years. * Medications:?Taking Aspir-81 81 MG Tablet Delayed Release 1 tablet Orally Once a day , Taking OneTouch Ultra Test - Strip as directed In Vitro test daily , Taking One Touch Delica Lancets 0 1 lancet invitro DX: E 11.9 use to test blood sugar once a day , Taking FreeStyle Lorene 2 Sensor - Miscellaneous USE DIRECTED , Taking BD Pen Needle Short U/F 31G X 8 MM Miscellaneous USE DIRECTED SUBCUTANEOUSLY DAILY three times a day , Taking Valsartan-hydroCHLOROthiazide 320-12.5 MG Tablet 1 tablet Orally Once a day , Taking Omeprazole 20 MG Capsule Delayed Release TAKE 1 CAPSULE ONCE DAILY , Taking Atorvastatin Calcium 40 MG Tablet TAKE 1 TABLET DAILY Orally Once a day , Taking Farxiga 5 MG Tablet TAKE 1 TABLET BY MOUTH EVERY DAY IN THE MORNING Orally Once a day , Taking metFORMIN HCl 500 MG Tablet 2 tablet with a meal Orally twice a day , Taking Januvia 100 MG Tablet TAKE 1 TABLET BY MOUTH EVERY DAY Orally Once a day , Taking Basaglar KwikPen 100 UNIT/ML Solution Pen-injector 58 units Subcutaneous daily , Not-Taking/PRN CeleBREX 200 MG Capsule 1 capsule with food Orally QOD , Not-Taking/PRN Sildenafil Citrate 100 MG Tablet 1 tablet as needed Orally Once a day , Medication List reviewed and reconciled with the patient * Allergies:?N.K.D.A. Objective: * Vitals:?Ht: 67, Wt: 195, BMI :30.54, Wt-k.45. weight is 195? at home? BP? not taken? no temp. Assessment: * Assessment: 1.?Sepsis, unspecified organ ism - A41.9 (Primary)??? Plan: * Treatment: * * The named appointment provid er may or may not be the originator of this progress note, and it is not deemed complete until electronically signed by the appointment provider. Sign off status: Pending * Provider:?Mauricio Dale MD Date:?0 05/25/2024 Generated for Sam macdonald/Delroy/eTlorenzosmitting on:?05/25/2024 07:49 PM EST History and Physical Notes * HPI (History of Present Illness) Category Sub-Category Detail Notes Category Not es Symptom(s) Telehealth Location of [facility] rendering services:: [address], [address] patient is a 74 yo male here as emergency. last 4 days had shakes sweats, no fever. 2 covid tests today. no appetite. says he is lethargic. shakes uncontrollably accordint to . no cough. no urinary symptoms. Location of patient:: at address listed in demographics for today's visit Patient identification confirmed using:: Name, Telehealth method:: Telephone only. Brynn ent not visible to care provider. Consent:: Patient verbally c onsented to treatment, Patient verbally consented to billing insurance company, Patient informed of any privacy concerns related to method of visit Total time spend talking with patient (m inutes): 16
--- OUTSIDE RECORDS SUMMARY | 2024-05-25 19:49 | XMS_ITS | Patient Health Record ---
Author Organization [facility] Address [address] [place] [phone] Care Team Providers Care Breakdown Worker Name Role Phone Mauricio Dale MD Primary Care Provider Thien Johnson Unavailable [phone] ALLERGIES No Known Allergies REASON FOR REFERRAL [...] malignant neoplasm of colon (Z12.11) Active confirmed [id number] Problem History of adenomatous polyp of colon (Z86.010) Active confirmed 674988235 Problem Encounter for screening for malignant neoplasm of rectum (Z12.12) Active confirmed Screening for malignant neoplasm of rectum (801678392) Problem Gastroesophageal reflux disease without esophagitis (K21.9) Active confirmed 398979051 Problem Barretts esophagus without dysplasia (K22.70) Active confirmed 798054465 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 Xiao esophag us (367292729) Problem Gastroesophageal reflux (K21.9) Active confirmed Esophageal re flux finding (369717542) Problem GERD without esophagitis (K21.9) Active confirmed Gastroes ophageal reflux disease (966149450) Problem Diverticulosis of colon (K57.30) Active confirmed Diverticulosi s of colon (879905880) Problem 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 pylori Hypertension IDDM Hyperlipidemia Denies SC,CVA,Lung disease,renal disease Arthritis Sleep apnea but does [...]
== END 2024-05-25 19:08 | disposition home or self-care (01) ==
PROVIDERS: Physician Assistant; Emergency Provider Emergency Medicine; PCP Internal Medicine
DX: R68.83 Chills (without fever) (principal); R53.81 Other malaise; Z03.818 Encounter for observation for suspected exposure to other biological agents ruled out; E11.9 Type 2 diabetes mellitus without complications; I10 Essential (primary) hypertension; E78.5 Hyperlipidemia, unspecified; Z79.84 Long term (current) use of oral hypoglycemic drugs; Z79.02 Long term (current) use of antithrombotics/antiplatelets; Z79.82 Long term (current) use of aspirin; Z79.4 Long term (current) use of insulin; Z79.899 Other long term (current) drug therapy
CPT/HCPCS: 0241U; 36415; 71045; 80053; 81001; 83690; 85025; 99283

== ENCOUNTER → 2024-05-25 16:02 | Outpatient (BNV) | payer MEDICARE, SELFPAY | PROVIDERS: PCP Internal Medicine; Visit Provider Radiology Diagnostic Radiology | DX: R50.9 Fever, unspecified (principal) | CPT/HCPCS: 71045 ==

== ENCOUNTER 2024-06-06 13:45 | Outpatient (REF) | payer MEDICARE, SELFPAY ==
[2024-06-06 13:48] LABS: MANUAL DIFF FLAG NO
[2024-06-06 13:59] LABS: Basophils Percent Auto 0.6 % (0-2); Eosinophils Absolute Auto 0.1 X10*3/uL (0.0-0.4); Eosinophils Percent Auto 0.8 % (0-4); Hematocrit 39.1 % (42.0-52.0); Hemoglobin 13.3 g/dl (14.0-18.0); Imm Gran Abs Auto 0.05 X10*3/uL (0.00-0.03); Imm Gran Pct Auto 0.8 % (0.0-0.4); Lymphocytes Absolute Auto 2.2 X10*3/uL (1.2-4.9); Lymphocytes Percent Auto 35.4 % (20-40); Mean Corpuscular Hemoglobin 30.6 pg (27.0-33.0); Mean Corpuscular Volume 90.1 fL (80.0-98.0); Mean Platelet Volume 10.2 fL (9.4-12.4); Monocytes Absolute Auto 0.6 X10*3/uL (0.1-1.2); Monocytes Percent Auto 9.5 % (2-11); Neutrophils Absolute Auto 3.3 x10*3/uL (2.0-8.3); Neutrophils Percent Auto 52.9 % (45-73); Platelet Count 209 X10*3/uL (160-400); Red Blood Count 4.34 X10*6/uL (4.60-5.80); Red Cell Distribution Width 13.4 % (11.0-16.0); White Blood Count 6.3 X10*3/uL (4.8-10.8)
[2024-06-06 14:52] LABS: Alanine Aminotransferase 45 U/L (0-40); Albumin Level 4.1 g/dL (3.5-5.0); Alkaline Phosphatase 103 U/L (39-117); Anion Gap 12 (12-20); Aspartate Amino Transferase 37 U/L (5-37); Bilirubin Total 0.6 mg/dL (0.0-1.0); Blood Urea Nitrogen 22 mg/dL (9-16); Calcium 9.4 mg/dL (8.4-10.2); Carbon Dioxide 26 mmol/L (22-29); Chloride 108 mmol/L (96-108); Estimated Glomerular Filt Rate > 60; Glucose Fasting 180 mg/dL (60-99); Potassium 4.3 mmol/L (3.3-5.1); Sodium 142 mmol/L (135-145); Total Protein 7.2 g/dL (6.5-8.0)
--- OUTSIDE RECORDS SUMMARY | 2024-06-06 16:45 | XMS_ITS ---
Author Organization Mauricio Dale MD Address [address] [place], [place] [phone] Care Team Providers Care Procurement Consultant Name Role Phone Mauricio Dale Primary Care Provider Allergies No Known Allergies Results Component Value Reference Range Notes Glucose, finger stick (Not y et reviewed by provider) Interpretation: Performing Lab: Notes/Report: Value 173 Comprehensive [place]. Panel Fa st (Not yet reviewed by provider) Interpretation: Performing Lab:[facility], [address] [facility], [place] [address] Notes/Report: Sodium 142 135-145 mmol/L Potassium 4.3 [...] 3.5-5.0 g/dL Alkaline Phosphatase 103 39-117 U/L Complete Blood Count Auto Di ff Reviewed date:06/06/2024 02:04:54 PM Interpretation: Performing Lab:[facility], [address] [place] [phone] Notes/Report: White Blood Count 6.3 4.8-10.8 X10*3/uL [...] Auto 0.000 0.0-0.012 X10*3/uL REASON FOR VISIT F/U ER Visit Medications Medication SIG (Take, Route, Frequency, Duration) Notes Start Date End Date Status Sildenafil Citrate 100 MG 1 tablet as needed Orally Once a day for 30 day(s) 01/24/2018 Not-Max ing CeleBREX 200 MG 1 capsule with food Orally QOD for 90 days 10/25/2020 Not-Gisela garcia Valsartan-hydroCHLOROth iazide 320-12.5 MG TAKE 1 TABLET [...] Date Provider Diagnosis Mauricio Dale MD [address] [facility] [address] [place] [phone] 06/06/2024 Mauricio Dale Type 2 diabetes mellitus [...] Name Order Date Glucose, finger stick 06/06/2024 Comprehensive [place]. Panel Fast Next Appt Details Follow Up: 2 Weeks, Reason: Provider Name:Mauricio kovacs, 06/20/2024 09:15:00 AM, [address] [place] [address], [address], [phone], Provider Name:Mauricio kovacs, 10/30/2024 07:15:00 AM, [address] [place] [address], [address], [phone], Provider Name:Mauricio kovacs, 11/06/2024 10:00:00 AM, [address] [place] [address], [address], [phone], Provider Name:Mauricio kovacs, 05/03/2025 07:30:00 AM, [address] [place] [address], [address], [phone], Provider Name:Mauricio kovacs, 05/10/2025 09:30:00 AM, [address] [place] [address], [address], [phone], Progress Notes * Juvencio KAISERDOB:1950 ([age] yo M)Acc No.[id number]:06/06/2024 Progress Notes Patient:?Juvencio KAISER Provider:?Mauricio Dale MD :1950???Age:74 Y???Sex:Male Atif e:06/06/2024 Address:[address] [place], [place] [phone] Subjective: * Chief Complaints: * ???1. F/U ER Visit. * HPI: ???Symptom(s):?patient is a 74 yo male here for follow up recent ER visit, work up in er was negative. had chills and sweats. no fever. taste is just coming back. no coughing. found to have elevated lft's appetit is just starting to come back. * ROS:?General/Constitutional:?Denies?Chills.?Admits?Fatigue.?Denies?Fever.?Denies?Headache.?ENT:?Patient denies?decreased sense of smell, any loss of taste, sore throat.?Denies?Sore throat.?Respiratory:?Denies?Cough.?Denies?Shortness of breath at rest.?Denies?Shortness of breath with exertion.?Gastrointestinal:?Denies?Diarrhea.?Denies?Nausea.?Peripheral Vascular:?Patient denies?red and blue toes.? * Medical [...] DAILY three times a day , Taking Omeprazole 20 MG Capsule Delayed Release TAKE 1 CAPSULE ONCE DAILY , Taking Atorvastatin Calcium 40 MG Tablet TAKE 1 TABLET DAILY Orally Once a day , Taking Januvia 100 MG Tablet TAKE 1 TABLET BY MOUTH EVERY DAY Orally Once a day , Taking Basaglar KwikPen 100 UNIT/ML Solution Pen-injector 58 units Subcutaneous daily , Taking Farxiga 5 MG Tablet TAKE 1 TABLET ONCE DAILY INTHE MORNING , Taking Valsartan-hydroCHLOROthiazide 320-12.5 MG Tablet TAKE 1 TABLET ONCE DAILY , Taking metFORMIN HCl 500 MG Tablet TAKE 2 TABLETS TWICE A DAY WITH MEALS , Not- Taking/PRN CeleBREX 200 MG Capsule 1 capsule with food Orally QOD , Not-Taking/PRN Sildenafil Citrate 100 MG Tablet 1 tablet as needed Orally Once a day , Medication List reviewed and reconciled with the patient * Allergies:?N.K.D.A. Objective: * Vitals:?Ht: 67, Wt: 194, BMI :30.38, BP:122/48, Wt-k. weight is down 1 pound since 05-25-24. * Examination: ???General Examination: ?GENERAL APPEARANCE:?alert, well hydrated, in no distress.?HEAD:?normocephalic.?SKIN:?good turgor.?HEART:?no murmurs, rubs, gallops, regular rate and rhythm.?LUNGS:?no wheezes, rales, rhonchi, good air movement, clear to auscultation bilaterally.? Assessment: * Assessment: 1.?Type 2 diabetes mellitus without complications - E11.9 (Primary)???2.?Elevated LFTs - R79.89???3.?Viral syndrome - B34.9??? Plan: * Treatment: ? Value Reference Range ?Value 173 ?LAB: [facility] [place]. Panel Fast (Collection Date & Time - 06/06/2024 11:15 AM) ?LAB: Complete Blood Count Auto Diff (Collection Date & Time - 06/06/2024 11:15 AM) Notes: doing well at present, will continue current regiment??2.?Elevated LFTs? Notes: will recheck pending future labs??3.?Viral syndrome? Notes: will repeat labs?? * Procedure Codes:?71377 ASSAY , GLUCOSE, BLOOD QUANT, Modifiers: QW , 12191 VENIPUNCT, ROUTINE* * Follow Up:?2 Weeks * * The named appointment provid er may or may not be the originator of this progress note, and it is not deemed complete until electronically signed by the appointment provider. Sign off status: Pending * Provider:?Mauricio Dale MD Date:?0 06/06/2024 Generated for Sam macdonald/Delroy/Marcelinoitting on:?06/06/2024 04:44 PM EDT History and Physical Notes * [...]
--- OUTSIDE RECORDS SUMMARY | 2024-06-06 16:45 | XMS_ITS ---
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 Deal In [employer] [place] 2 Sensor - USE DIRECTED for 84 Activ e Vital Signs Height 67 in 05/25/2024 Weight 195 lbs 05/25/2024 BMI 30.54 kg/m2 05/25/2024 weight is 195 at home BP not taken no temp Encounters Encounter Location Date Provider Diagnosis Mauricio Dale MD [address] [place] [phone] 05/25/2024 Mauricio Dale Sepsis, unspecified organism A41.9 [...] room Next Appt Details Provider Name:Mauricio kovacs, 06/20/2024 09:15:00 AM, [address] [place] [address], [phone], Provider Name:Mauricio kovacs, 10/30/2024 07:15:00 AM, [address] [place] [address], [phone], Provider Name:Mauricio kovacs, 11/06/2024 10:00:00 AM, [address] [place] [address], [phone], Provider Name:Mauricio kovacs, 05/03/2025 07:30:00 AM, [address] [place] [address], [phone], Provider Name:Mauricio kovacs, 05/10/2025 09:30:00 AM, [address] [place] [address], [phone], Progress Notes * Michelle HEATH:1950 ([age] yo M)Acc No.[id number]:05/25/2024 Patient:?Umang HEATH Provider:?Mauricio Dale MD :1950???Age:74 Y???Sex:Male Atif e:05/25/2024 Address:[address] [place], [place] [phone] Subjective: * Chief Complaints: * ???chills, sweats, no fever, coughing alittle little congested , runny nose x 4 days Covid test is negativeVideo [phone] * HPI: ???Symptom(s):?Telehealth?Location of provider rendering services:?[address], [address],?Location of patient:?at address listed [...] Vascular:?Patient denies?red and blue toes.? * Medical History:? * Surgical History:? * [...] DIRECTED SUBCUTANEOUSLY DAILY three times a day Valsartan-hydroCHLOROthiazide 320-12.5 MG Tablet 1 tablet Orally Once a day Omeprazole 20 MG Capsule Delayed [...] a day Basaglar KwikPen 100 UNIT/ML Solution Pen- injector 58 units Subcutaneous daily Taking Aspir-81 81 [...] SUBCUTANEOUSLY DAILY three times a day Taking Valsartan-hydroCHLOROthiazide 320-12.5 MG Tablet 1 tablet Orally Once a day Taking Omeprazole 20 MG Capsule [...] gies Verified] Objective: * Vitals:?Ht: 67, Wt: 195, BMI :30.54, Wt-k.45. weight is 195? at home? BP? not taken? no temp. Assessment: * Assessment: 1.?Sepsis, unspecified organ ism - A41.9 (Primary)??? Plan: * Treatment: * Procedure Codes:? * * Sign off status: Completed true * Provider:?Mauricio Dale MD Date:?0 05/25/2024 Generated for Sam macdonald/Delroy/eTransmitting on:?06/06/2024 04:45 PM EDT History and Physical Notes * HPI (History of Present Illness) Category Sub-Category Detail Notes Category Not es Symptom(s) Telehealth Location of [facility] services:: [address], [address] [...] treatment, Patient verbally consented to billing insurance [employer], Patient informed of any privacy concerns related to method of visit Total time spend talking with patient (m inutes): 16
--- OUTSIDE RECORDS SUMMARY | 2024-06-06 16:45 | XMS_ITS ---
Author Organization Mauricio Dale MD Address [address] [facility] [address] [place] [phone] Care Team Providers Care Annealing Operator Name Role Phone Mauricio Dale Primary Care Provider REASON FOR VISIT ER Encounters Encounter Location Date Provider Diagnosis Mauricio Dale MD [address] [place] [address] [address] [place] [phone] 05/29/2024 Mauricio Dale Plan Of Treatment Next Appt Details Provider Name:Mauricio kovacs, 06/20/2024 09:15:00 AM, [address] [place] [address], [address], [phone], Provider Name:Mauricio kovacs, 10/30/2024 07:15:00 AM, [address] [place] [address], [address], [phone], Provider Name:Mauricio kovacs, 11/06/2024 10:00:00 AM, [address] [place] [address], [address], [phone], Provider Name:Mauricio kovacs, 05/03/2025 07:30:00 AM, [address] [place] [address], [address], [phone], Provider Name:Mauricio kovacs, 05/10/2025 09:30:00 AM, [address] [place] [address], [phone], Progress Notes * Juvencio HEATHDOB:1950 ([age] yo M)Acc No.[id number]:05/29/2024 Patient:?Juvencio HEATH :1950???Age:74 Y???Sex:Male Address:[address] [place] [address], [phone] * true * Date:? Generated for Sam macdonald/Delroy/eTransmitting on:?06/06/2024 04:45 PM EDT
--- OUTSIDE RECORDS SUMMARY | 2024-06-06 16:46 | XMS_ITS | Patient Health Record ---
Author Organization [facility] Address [address] [place] [phone] Care Team Providers Care Fermentation Operator Name Role Phone Mauricio Dale MD Primary Care Provider Thien Johnson Unavailable [phone] Allergies No Known Allergies Reason For Referral No Information Medications Medication SIG (Take, Route, Frequency, Duration) [...] for 90 Active Aspir-81 Active glyBURIDE Not-Taking Immunizations Vaccine Route Administration Date Status Comme nts Influenza Unknown 11/27/2020 Administered Problems Problem Type SNOMED Code ICD Code Onset Dates Problem Status W/U Status Risk Notes Problem 662261408 Encounter for screening for malignant neoplasm of colon (Z12.11) Active confirmed Problem 975069065 History of adenomatous polyp of colon (Z86.010) Active confirmed Problem Screening for malignant neoplasm of rectum (904681053) Encounter for screening for malignant neoplasm of rectum (Z12.12) Active confirmed Problem 227468703 Gastroesophageal reflux disease without esophagitis (K21.9) Active confirmed Problem 668459905 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) Active confirmed Problem Xiao esophagus (229244140) 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 Problem Esophageal reflux finding (839378494) Gastroesophageal reflux (K21.9) Active confirmed Problem Gastroesophageal reflux disease (974991533) GERD without esophagitis (K21.9) Active confirmed Problem Diverticulosis of colon (111461125) Diverticulosis of colon (K57.30) Active confirmed Problem Xiao's esophagus (301248653) 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) Active confirmed Plan Of Treatment Future Test Test Name Order Date UPPER GI ENDOSCOPY 12/31/2010 COLONOSCOPY 12/31/2010 UPPER GI ENDOSCOPY 06/16/2016 COLONOSCOPY 06/16/2016 UPPER GI ENDOSCOPY 08/26/2021 COLONOSCOPY 08/26/2021 Insurance Providers Payer Name Payer Address Payer Phone Subscriber Number Group Number Insured Name Patient Relationship to Insured Coverage Start Date Coverage End Date [facility] [address] [place], [place] [id number] DELVIN HEATH Self - patient is the insured Medical (General) History Medical History History ICD Code Tubular adenoma removed in ; followup colonoscopy for the evaluation of some rectal bleeding in 2010 was negative other than some diverticulosis and internal hemorrhoids. GERD-EGD in 2010 revealed a small hiatal hernia, small area of Xiao's esophagus without dysplasia, and gastritis without any H. pylori Hypertension IDDM Hyperlipidemia Denies PR,CVA,Lung disease,renal disease Arthritis Sleep apnea but does not tolerate his CP AP Negative colonoscopy in 04/2016 EGD in 2016 was negative for any definitive Xiao's; there was no esophagitis; there was a small to moderate-sized hiatal hernia Surgical History Surgery Date(Month/Year) hernia vasectomy appendectomy right knee x2--most recent was 03/[address] [facility] [address] Caro cataracts rotator cuff tear repair left- Dr. Ange espitia
== END 2024-06-06 13:46 | disposition home or self-care (01) ==
LOC: HO.LNP 13:45
PROVIDERS: Visit Provider Internal Medicine
DX: E11.9 Type 2 diabetes mellitus without complications (principal)
CPT/HCPCS: 80053; 85025

== ENCOUNTER 2024-06-12 08:34 | Outpatient (AMB) | payer MEDICARE, SELFPAY ==
--- NOTE | 2024-06-12 08:48 | A.OFFVIS_ITS ---
Vital Signs 06/12/24 08:55 Height 5 ft 7 in Weight 193 lb BMI 30.2 Intake Visit Reasons: N/P B/L knee req injections Intake Note: Umang is a 74 year old male who presents today for a new patient evaluation of bilateral knee OA. Patient was last seen on 05/14/21 and was given bilateral knee injections. States injections provided him with relief and is requesting to repeat injections. His pain has been present for a couple of years with his right knee being the worse. Allergies No Known Allergies [No Known Allergies*] Allergy (Verified 06/12/24 09:01) Medication List - Last Reconciled 06/12/24 by Christine Boogie PA-C aspirin 81 mg PO DAILY atorvastatin 40 mg PO DAILY dapagliflozin propanediol (Farxiga) 5 mg PO DAILY insulin glargine (Lantus Solostar U-100 Insulin) ea subcut insulin glargine (Basaglar KwikPen U-100 Insulin) 58 units subcut DAILY metformin 500 mg PO DAILY multivitamin 1 tab PO DAILY omeprazole 20 mg PO DAILY sitagliptin phosphate (Januvia) 100 mg PO DAILY valsartan-hydrochlorothiazide 320-12.5 mg 1 tab PO DAILY HPI HPI N/P B/L knee req injections: Details: 74-year-old gentleman presents to the office today for ongoing bilateral knee pain right greater than left. He has had injections in the past which are quite helpful up until recently. He has difficulty with daily activities such as prolonged walking standing and stair climbing. [facility] Medical History Arthritis Diabetes Elevated cholesterol GERD (gastroesophageal reflux disease) Hypertension Skin cancer Sleep apnea Surgical History Hx of vasectomy Hx of repair of rotator cuff Hx of cataract extraction History of esophagogastroduodenoscopy (EGD) H/O colonoscopy Hx of hernia repair History of appendectomy H/O right knee surgery Social History (Updated 06/12/24 @ 08:57 by JUSTIN Peters) Patient Tobacco Use Status: Former Tobacco user Current occupational status: retired Current occupation: left hand dominant Review of Systems Const All systems reviewed & are unremarkable except as noted in HPI and below Physical Exam Vital Signs: BMI result Body Mass Index 30.2 Extrem Other: bilat knee skin intact, no erythema or joint effusion. Tenderness along the medial joint line. ROM full with crepitus. Negative steinmans. No ligamentous laxity. NVI. Office Procedures AMB Joint Injection/Aspiration Joint Injection/Aspiration Primary Site: right knee Secondary Site: left knee Prep: site was prepped using aseptic technique, ethochloride spray was applied and injection warnings given Injected: 40 mg of (each knee), DepoMedrol, with 8 mL of, 1% plain lidocaine and in the joint Approach Used: anterolateral Procedure: The patient tolerated the procedure well and there was some relief with the local anesthesia Coding 87085 - Glenohumeral/Tronchanteric Bursa/Intraarticular Procedure code (CPT) selection complete Results Reviewed Results Reviewed: Xrays were obtained in the office today and personally reviewed by me show medial and PF oa Assessment & Plan Assessment & Plan (1) Osteoarthritis of knees, bilateral: Code(s): M17.0 - Bilateral primary osteoarthritis of knee Category: Medical Plan: We discussed options today, which include steroid injection. The patient did consent to move forward with the injection, which was tolerated well.? I recommended rest, ice and elevation and OTC antiinflammatories prn for d iscomfort. If symptoms persist over the next 6-8 weeks, they will contact our office, otherwise, prn We also discussed their diabetes and the effect the steroid can have on thier blood glucose levels; therefore, they will continue to monitor these very closely over the next 72 hours Orders: Orders XR knee RT 3V Today M17.11 - Unilateral primary osteoarthritis, right knee XR knee LT 3V Today M25.562 - Pain in left knee Coding Level of Care Code Est Pt Level 3 (04340) Complex EM visit Add On G2211 Diagnoses Osteoarthritis of knees, bilateral M17.0 CPT Codes Coding - Joint 7: 44366 - Glenohumeral/Tronchanteric Bursa/Intraarticular ([id number])
--- OUTSIDE RECORDS SUMMARY | 2024-06-12 08:53 | XMS_ITS ---
Author Organization Mauricio Dale MD Address [address] [facility] [address] [place] [phone] Care Team Providers Care Spring Fitter Helper Name Role Phone Mauricio Dale Primary Care Provider REASON FOR VISIT ER Encounters Encounter Location Date Provider Diagnosis Mauricio Dale MD [address] [place] [address] [address] [place] [phone] 05/29/2024 Mauricio Dale Plan Of Treatment Next Appt Details Provider Name:Mauricio kovacs, 06/20/2024 09:15:00 AM, [address] [place] [address], [address], [phone], Provider Name:Mauricio kovacs, 10/30/2024 07:15:00 AM, [address] [place] [address], [address], [phone], Provider Name:Mauricio kovacs, 11/06/2024 10:00:00 AM, [address] [place] [address], [address], [phone], Provider Name:Mauricio kovacs, 05/03/2025 07:30:00 AM, [address] [place] [address], [address], [phone], Provider Name:Mauricio kovacs, 05/10/2025 09:30:00 AM, [address] [place] [address], [phone], Progress Notes * Juvencio HEATHDOB:1950 ([age] yo M)Acc No.[id number]:05/29/2024 Patient:?Juvencio HEATH :1950???Age:74 Y???Sex:Male Address:[address] [place] [address], [phone] * true * Date:? Generated for Sam macdonald/Delroy/eTransmitting on:?06/12/2024 08:53 AM EDT
--- OUTSIDE RECORDS SUMMARY | 2024-06-12 08:53 | XMS_ITS ---
Author Organization Mauricio Dale MD Address [address] [place], [place] [phone] Care Team Providers Care Knitting Machine Operator Name Role Phone Mauricio Dale Primary Care Provider [phone] Allergies No Known Allergies Results Component Value Reference Range Notes Glucose, finger stick (Not y et reviewed by provider) Interpretation: Performing Lab: Notes/Report: Value 173 Complete Blood Count Auto Di ff Reviewed date:06/06/2024 02:04:54 PM Interpretation: Performing Lab:[facility], [address] [place] [phone] Notes/Report: White Blood Count 6.3 4.8-10.8 X10*3/uL [...] NRBC Abs Auto 0.000 0.0-0.012 X10*3/uL Comprehensive [place]. Panel Fa st Reviewed date:06/07/2024 07:11:18 PM Interpretation: Performing Lab:[facility], [address] [place] [phone] Notes/Report: Sodium 142 135-145 mmol/L Potassium 4.3 [...] Location Date Provider Diagnosis Mauricio Dale MD [address] [place] [address] [place] [phone] 06/06/2024 Mauricio Dale Type 2 diabetes mellitus [...] Reason: Provider Name:Mauricio kovacs, 06/20/2024 09:15:00 AM, [address] [place] [address], [address], [phone], Provider Name:Mauricio kovacs, 10/30/2024 07:15:00 AM, [address] [place] [address], [address], [phone], Provider Name:Mauricio kovacs, 11/06/2024 10:00:00 AM, [address] [place] [address], [address], [phone], Provider Name:Mauricio kovacs, 05/03/2025 07:30:00 AM, [address] [place] [address], [address], [phone], Provider Name:Mauricio kovacs, 05/10/2025 09:30:00 AM, [address] [place] [address], [address], [phone], Progress Notes * Umang KAISERDOB:1950 ([age] yo M)Acc No.[id number]:06/06/2024 Progress Notes Patient:?Umang KAISER Provider:?Mauricio Dale MD :1950???Age:74 Y???Sex:Male Atif e:06/06/2024 Address:[address] [place], [place] [phone] Subjective: * Chief Complaints: * ???F/U ER Visit * HPI: ???Symptom(s):?patient is a 74 yo [...] gies Verified] Objective: * Vitals:?Ht: 67, Wt: 194, BMI [...] ? Value Reference Range ?Value 173 ?LAB: Complete Blood Count Auto Diff (Collection Date & Time - 06/06/2024 11:15 AM) ?LAB: Comprehensive [facility]. Panel Fast (Collection Date & Time - 06/06/2024 11:15 AM) Notes: doing well at present, will continue current regiment??2.?Elevated LFTs? Notes: will recheck pending future labs??3.?Viral syndrome? Notes: will repeat labs?? * Procedure Codes:?64398 ASSAY , GLUCOSE, BLOOD QUANT, Modifiers: QW 27390 VENIPUNCT, ROUTINE* * Follow Up:?2 Weeks * * Sign off status: Completed true * Provider:?Mauricio Dale MD Date:?0 06/06/2024 Generated for Printi ng/Famikog/eTransmitting on:?06/12/2024 08:53 AM EDT History and Physical Notes * [...]
--- OUTSIDE RECORDS SUMMARY | 2024-06-12 08:54 | XMS_ITS ---
Author Organization Mauricio Dale MD Address [address] [place], [place] [phone] Care Team Providers Care Slip Maker Name Role Phone Mauricio Dale Primary Care Provider Allergies No Known Allergies REASON FOR VISIT chills, sweats, no fever, coughing alittle little congested , runny nose x 4 days Covid test is negative, Video [phone] Medications Medication SIG (Take, Route, Frequency, Duration) [...] a day for 30 days 12/01/2018 Active Apartment ListStyle Lorene 2 Sensor - USE DIRECTED for 84 Activ e Vital Signs Height 67 in 05/25/2024 Weight 195 lbs 05/25/2024 BMI 30.54 kg/m2 05/25/2024 weight is 195 at home BP not taken no temp Encounters Encounter Location Date Provider Diagnosis Mauricio Dale MD [address] [place] [phone] 05/25/2024 Mauricio Dale Sepsis, unspecified organism A41.9 [...] Details Provider Name:Mauricio kovacs, 06/20/2024 09:15:00 AM, [address] [place] [address], [phone], Provider Name:Mauricio kovacs, 10/30/2024 07:15:00 AM, [address] [place] [address], [phone], Provider Name:Mauricio kovacs, 11/06/2024 10:00:00 AM, [address] [place] [address], [phone], Provider Name:Mauricio kovacs, 05/03/2025 07:30:00 AM, [address] [place] [address], [phone], Provider Name:Mauricio kovacs, 05/10/2025 09:30:00 AM, [address] [place] [address], [phone], Progress Notes * Michelle HEATH:1950 ([age] yo M)Acc No.[id number]:05/25/2024 Patient:?Umang HEATH Provider:?Mauricio Dale MD :1950???Age:74 Y???Sex:Male Atif e:05/25/2024 Address:[address] [place], [place] [phone] Subjective: * Chief Complaints: * ???chills, sweats, no fever, coughing alittle little congested , runny nose x 4 days Covid test is negativeVideo [phone] * HPI: ???Symptom(s):?Telehealth?Location of provider rendering services:?[address], [address],?Location of patient:?at address [...] MD Date:?0 05/25/2024 Generated for Sam macdonald/Delroy/eTransmitting on:?06/12/2024 08:53 AM EDT History and Physical Notes * HPI (History of Present Illness) Category Sub-Category Detail Notes Category Not es Symptom(s) Telehealth Location of [facility] rendering services:: [address], [address] [...] treatment, Patient verbally consented to billing insurance Familiar, Patient informed of any privacy concerns related to method of visit Total time spend talking with patient (m inutes): 16
--- OUTSIDE RECORDS SUMMARY | 2024-06-12 08:54 | XMS_ITS | Patient Health Record ---
Author Organization [facility] Address [address] [place] [phone] Care Team Providers Care Preparation Room Worker Name Role Phone Mauricio Dale MD Primary Care Provider Thien Johnson Unavailable [phone] Allergies No Known Allergies Reason For Referral [...] Problem Status W/U Status Risk Notes Problem 632628222 Encounter for screening for malignant neoplasm of colon (Z12.11) Active confirmed Problem 957943563 History of adenomatous polyp of colon (Z86.010) Active confirmed Problem Screening for malignant neoplasm of rectum (785436182) Encounter for screening for malignant neoplasm of rectum (Z12.12) Active confirmed Problem 257308089 Gastroesophageal reflux disease without esophagitis (K21.9) Active confirmed Problem 047662542 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) Active confirmed Problem Xiao esophagus (399429270) 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 Problem Esophageal reflux finding (364218928) Gastroesophageal reflux (K21.9) Active confirmed Problem Gastroesophageal reflux disease (879664967) GERD without esophagitis (K21.9) Active confirmed Problem Diverticulosis of colon (230521073) Diverticulosis of colon (K57.30) Active confirmed Problem Xiao's esophagus (535457004) 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) Active confirmed Plan Of Treatment Future Test Test Name Order Date UPPER GI ENDOSCOPY 12/31/2010 COLONOSCOPY 12/31/2010 UPPER GI ENDOSCOPY 06/16/2016 COLONOSCOPY 06/16/2016 UPPER GI ENDOSCOPY 08/26/2021 COLONOSCOPY 08/26/2021 Insurance Providers Payer Name Payer Address Payer Phone Subscriber Number Group Number Insured Name Patient Relationship to Insured Coverage Start Date Coverage End Date [facility] [address] [place], [place] [id number] [phone] [id number] DELVIN HEATH Self - patient is the [...] any H. pylori Hypertension IDDM Hyperlipidemia Denies [place],CVA,Lung disease,renal disease Arthritis Sleep apnea but does not tolerate his CP AP Negative colonoscopy in 04/2016 EGD in 2016 was negative for any definitive Xiao's; there was no esophagitis; there was a small to moderate-sized hiatal hernia Surgical History Surgery Date(Month/Year) hernia vasectomy appendectomy right knee x2--most recent was 03/[address] [facility] [address] Caro cataracts rotator cuff tear repair left- Dr. Ange espitia
[2024-06-12 08:55] VITALS: BMI 30.2
== END 2024-06-12 09:38 | disposition home or self-care (01) ==
LOC: HO.HOS 08:35
PROVIDERS: PCP Internal Medicine; Visit Provider Physician Assistant
DX: M17.0 Bilateral primary osteoarthritis of knee (principal)
CPT/HCPCS: 20610; 99213

== ENCOUNTER → 2024-06-12 08:36 | Outpatient (BNV) | payer MEDICARE, SELFPAY | PROVIDERS: Visit Provider Radiology Vascular & Interventional Radiology | DX: M17.11 Unilateral primary osteoarthritis, right knee (principal); M25.562 Pain in left knee | CPT/HCPCS: 73562 ==

== ENCOUNTER 2024-06-12 11:03 | Outpatient (REF) | payer MEDICARE, SELFPAY ==
--- NOTE | ~2024-06-12 | XR_ITS ---
CLINICAL HISTORY: M25.562 - Pain in left knee AP Bilateral standing knees, 2 view left knee Comparison: None Findings: No acute fracture or dislocation is identified. The femorotibial joint space is preserved. Atherosclerosis is present. IMPRESSION: 1. No acute osseous abnormality is identified. No significant arthritic change. This document has been electronically signed by: Eddie Escamilla on 06/13/2024 09:20:23
--- NOTE | ~2024-06-12 | XR_ITS ---
CLINICAL HISTORY: M17.11 - Unilateral primary osteoarthritis, right knee 2 view right knee Comparison: None Findings: No acute fracture or dislocation is identified. Moderate medial femorotibial joint space narrowing is seen. Atherosclerosis is present. IMPRESSION: 1. Moderate medial femorotibial joint space narrowing. This document has been electronically signed by: Eddie Escamilla on 06/13/2024 08:59:24
== END 2024-06-12 11:04 | disposition home or self-care (01) ==
LOC: HO.HOSX 11:03
PROVIDERS: Visit Provider Physician Assistant
DX: M17.0 Bilateral primary osteoarthritis of knee (principal); M25.562 Pain in left knee
CPT/HCPCS: 20610; 73562; 99212; J1010; J2003

== ENCOUNTER 2024-10-03 13:36 | Outpatient (AMB) | payer MEDICARE, SELFPAY ==
--- OUTSIDE RECORDS SUMMARY | 2024-06-06 07:15 | XMS_ITS ---
Author Organization Mauricio Dale MD Address [address] [place], [place] [id number] Care Team Providers Care Chemist Assistant Name Role Phone Mauricio Dale Primary Care Provider [phone] Allergies No Known Allergies Results Component Value Reference Range Notes Glucose, finger stick (Not y et reviewed by provider) Interpretation: Performing Lab: Notes/Report: Value 173 Complete Blood Count Auto Di ff Reviewed date:06/06/2024 02:04:54 PM Interpretation: Performing Lab:[facility], [address] [place] [phone] Notes/Report: White Blood Count 6.3 4.8-10.8 X10*3/uL [...] NRBC Abs Auto 0.000 0.0-0.012 X10*3/uL Comprehensive [facility]. Panel Fa st Reviewed date:06/07/2024 07:11:18 PM Interpretation: Performing Lab:[facility], [address] [place] [phone] Notes/Report: Sodium 142 135-145 mmol/L Potassium 4.3 [...] Location Date Provider Diagnosis Mauricio Dale MD [address] [place] [address] [place] [phone] 06/06/2024 Mauricio Dale Type 2 diabetes mellitus [...] Follow Up: 2 Weeks, Reason: Provider Name:Mauricio kovacs, 10/30/2024 07:15:00 AM, [address] [place] [address], [address], [phone], Provider Name:Mauricio kovacs, 11/06/2024 10:00:00 AM, [address] [place] [address], [address], [phone], Provider Name:Mauricio kovacs, 05/03/2025 07:30:00 AM, [address] [place] [address], [address], [phone], Provider Name:Mauricio baumr, 05/10/2025 09:30:00 AM, [address] [place] [address], [address], [phone], Progress Notes * Umang KAISERDOB:1950 ([age] yo M)Acc No.[id number]:06/06/2024 Progress Notes Patient: Umang SALINAS Provider: Roberta Dale MD :1950 A ge:74 Y S ex:Male Date:06/06/2024 Address:[address] [place], [place] [phone] Subjective: * Chief Complaints: * F /U [...] Time - 06/06/2024 11:15 AM) ?LAB: Comprehensive [facility]. Panel Fast (Collection Date & Time - 06/06/2024 11:15 AM) Notes: doing well at present, will continue current regiment??2.?Elevated LFTs? Notes: will recheck pending future labs??3.?Viral syndrome? Notes: will repeat labs?? * Procedure Codes: 8 2947 ASSAY, GLUCOSE, BLOOD QUANT, Modifiers: QW 64874 VENIPUNCT, ROUTINE* * Follow Up: 2 Weeks * * Sign off status: Completed true * Provider: Roberta Dale MD Date: 0 06/06/2024 Generated for Alexi renae/Delroy/eTransmitting on: 0 10/03/2024 02:22 PM EDT History and Physical Notes * HPI [...]
--- NOTE | 2024-10-03 13:51 | MHC.OFFVIS ---
Vital Signs 10/03/24 14:01 Height 5 ft 7 in Weight 193 lb BMI 30.2 Intake Visit Reasons: INJ- B/L knee injection Intake Note: Umang is a 74 year old female who presents today for bilateral knee injections, last injection on 06/12/24. Patient reports injection provided him with relief for about 2-3 months. He would like to repeat injections. Allergies No Known Allergies (No Known Allergies*) Allergy (Verified 10/03/24 14:01) HPI HPI INJ- B/L knee injection: Details: 74-year-old gentleman returns to the office today for bilateral knee pain. He has had injections in the past which are helpful for approximately 3 months. Over the last couple of weeks he has had worsening pain in the knees which has limited his activity. [facility] Medical History Arthritis Diabetes Elevated cholesterol GERD (gastroesophageal reflux disease) Hypertension Skin cancer Sleep apnea Surgical History Hx of vasectomy Hx of repair of rotator cuff Hx of cataract extraction History of esophagogastroduodenoscopy (EGD) H/O colonoscopy Hx of hernia repair History of appendectomy H/O right knee surgery Social History (Updated 06/12/24 @ 08:57 by JUSTIN Peters) Patient Tobacco Use Status: Former Tobacco user Current occupational status: retired Current occupation: left hand dominant Review of Systems Const All systems reviewed & are unremarkable except as noted in HPI and below Physical Exam Vital Signs: BMI result Body Mass Index 30.2 Extrem Other: bilat knee skin intact, no erythema or joint effusion. Tenderness along the medial joint line. ROM full with crepitus. Negative steinmans. No ligamentous laxity. NVI. Office Procedures AMB Joint Injection/Aspiration Joint Injection/Aspiration Primary Site: right knee Secondary Site: left knee Prep: site was prepped using aseptic technique, ethochloride spray was applied and injection warnings given Injected: 40 mg of, DepoMedrol, with 8 mL of, 1% plain lidocaine and in the joint Approach Used: anterolateral Procedure: The patient tolerated the procedure well and there was some relief with the local anesthesia Coding 91621 - Glenohumeral/Tronchanteric Bursa/Intraarticular Procedure code (CPT) selection complete Assessment & Plan Assessment & Plan (1) Osteoarthritis of knees, bilateral: Code(s): M17.0 - Bilateral primary osteoarthritis of knee Category: Medical Plan: We discussed options today, which include steroid injection. The patient did consent to move forward with the bilat knee injection, which was tolerated well.? I recommended rest, ice and elevation and OTC antiinflammatories prn for discomfort. If symptoms persist over the next 6-8 weeks, they will contact our office, otherwise, prn We also discussed their diabetes and the effect the steroid can have on thier blood glucose levels; therefore, they will continue to monitor these very closely over the next 72 hours Coding Level of Care Code Est Pt Level 3 (50203) Complex EM visit Add On G2211 Diagnoses Osteoarthritis of knees, bilateral M17.0 CPT Codes Coding - Joint 7: 25295 - Glenohumeral/Tronchanteric Bursa/Intraarticular ([id number])
[2024-10-03 14:01] VITALS: BMI 30.2
--- OUTSIDE RECORDS SUMMARY | 2024-10-03 14:22 | XMS_ITS | Patient Health Record ---
Author Organization [facility] Address [address] [place] [address] Care Team Providers Care Hyster Driver Name Role Phone Mauricio Dale MD Primary Care Provider Thien Johnson Unavailable [phone] Allergies No Known Allergies Reason For Referral [...] Problem Status W/U Status Risk Notes Problem 512755437 Encounter for screening for malignant neoplasm of colon (Z12.11) Active confirmed Problem 542366963 History of adenomatous polyp of colon (Z86.010) Active confirmed Problem Screening for malignant neoplasm of rectum (481991295) Encounter for screening for malignant neoplasm of rectum (Z12.12) Active confirmed Problem 944654852 Gastroesophageal reflux disease without esophagitis (K21.9) Active confirmed Problem 073602778 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) Active confirmed Problem Xiao esophagu s (K22.70) Active confirmed Problem Gastroesophageal reflux (K21.9) Active confirmed Problem Gastroesophageal reflux disease (822747141) GERD without esophagitis (K21.9) Active confirmed Problem Diverticulosis of colon (325823950) Diverticulosis of colon (K57.30) Active confirmed Problem 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) Active confirmed Plan Of Treatment Future Test Test Name Order Date UPPER GI ENDOSCOPY 12/31/2010 COLONOSCOPY 12/31/2010 UPPER GI ENDOSCOPY 06/16/2016 COLONOSCOPY 06/16/2016 UPPER GI ENDOSCOPY 08/26/2021 COLONOSCOPY 08/26/2021 Insurance Providers Payer Name Payer Address Payer Phone Subscriber Number Group Number Insured Name Patient Relationship to Insured Coverage Start Date Coverage End Date [facility] [address] [place], [place] [id number] [phone] [id number] DELVIN HEATH Self - patient is the [...] any H. pylori Hypertension IDDM Hyperlipidemia Denies [place],CVA,Lung disease,renal disease Arthritis Sleep apnea but does not tolerate his CP AP Negative colonoscopy in 04/2016 EGD in 2016 was negative for any definitive Xiao's; there was no esophagitis; there was a small to moderate-sized hiatal hernia Surgical History Surgery Date(Month/Year) hernia vasectomy appendectomy right knee x2--most recent was 03/[address] [facility] [address] Caro cataracts rotator cuff tear repair left- Dr. Ange espitia
== END 2024-10-03 14:21 | disposition home or self-care (01) ==
LOC: HO.HOS 13:37
PROVIDERS: Visit Provider Physician Assistant
DX: M17.0 Bilateral primary osteoarthritis of knee (principal)
CPT/HCPCS: 20610; 99213

== ENCOUNTER → 2024-10-03 13:36 | Outpatient (BNVA) | payer MEDICARE, SELFPAY | PROVIDERS: Visit Provider Physician Assistant | DX: M17.0 Bilateral primary osteoarthritis of knee (principal) | CPT/HCPCS: 20610; 99212; J1010; J2003 ==

== ENCOUNTER 2024-10-30 07:15 | Outpatient (REF) | payer MEDICARE, SELFPAY ==
--- OUTSIDE RECORDS SUMMARY | 2024-06-06 07:15 | XMS_ITS ---
Author Organization Mauricio Dale MD Address [address] [place], [place] [phone] Care Team Providers Care Therapy Manager Name Role Phone Mauricio Dale Primary Care Provider Allergies No Known Allergies Results Component Value Reference Range Notes Glucose, finger stick (Not y et reviewed by provider) Interpretation: Performing Lab: Notes/Report: Value 173 Complete Blood Count Auto Di ff Reviewed date:06/06/2024 02:04:54 PM Interpretation: Performing Lab:[facility], [address] [place] [phone] Notes/Report: White Blood Count 6.3 4.8-10.8 X10*3/uL [...] NRBC Abs Auto 0.000 0.0-0.012 X10*3/uL [facility] [place]. Panel Fa st Reviewed date:06/07/2024 07:11:18 PM Interpretation: Performing Lab:[facility], [address] [place] [phone] Notes/Report: Sodium 142 135-145 mmol/L Potassium 4.3 [...] Location Date Provider Diagnosis Mauricio Dale MD [address] [place] [address] [place] [phone] 06/06/2024 Mauricio Dale Type 2 diabetes mellitus [...] 100 MG TAKE 1 TABLET BY HILARY EVERY DAY Orally Once a day Treatment Notes Assessment Notes Type 2 diabetes mellitus wit hout complications doing well at present, will continue current regiment Elevated LFTs will recheck pending future labs Viral syndrome will repeat labs Pending Test Test Name Order Date Glucose, finger stick 06/06/2024 Next Appt Details Follow Up: 2 Weeks, Reason: Provider Name:Mauricio kovacs, 11/06/2024 10:00:00 AM, [address] [place] [address], [address] [place] [address], [phone], Provider Name:Mauricio kovacs, 05/03/2025 07:30:00 AM, [address] [place] [address], [address], [phone], Provider Name:Mauricio kovacs, 05/10/2025 09:30:00 AM, [address] [place] [address], Suite [facility], [place], [place], [phone], Progress Notes * KUMAR UmangDOB:1950 ([age] yo M)Acc No.[id number]:06/06/2024 Progress Notes Patient: Umang SALINAS Provider: Roberta Dale MD :1950 A ge:74 Y S ex:Male Date:06/06/2024 Address:[address] [place], [place] [phone] Subjective: * Chief Complaints: * F /U [...] Time - 06/06/2024 11:15 AM) ?LAB: [facility] [place]. Panel Fast (Collection Date & Time - 06/06/2024 11:15 AM) Notes: doing well at present, will continue current regiment??2.?Elevated LFTs? Notes: will recheck pending future labs??3.?Viral syndrome? Notes: will repeat labs?? * Procedure Codes: 8 2947 ASSAY, GLUCOSE, BLOOD QUANT, Modifiers: QW 37558 VENIPUNCT, ROUTINE* * Follow Up: 2 Weeks * * Sign off status: Completed true * Provider: Roberta Dale MD Date: 0 06/06/2024 Generated for Sam macdonald/Delroy/Marcelinoitting on: 0 10/30/2024 11:50 AM EDT History and Physical Notes * [...]
[2024-10-30 11:20] LABS: Alanine Aminotransferase 50 U/L (0-40); Albumin Level 4.4 g/dL (3.5-5.0); Alkaline Phosphatase 105 U/L (39-117); Aspartate Amino Transferase 45 U/L (5-37); Cholesterol 164 mg/dL (<200); HDL Cholesterol 45 mg/dL (>40); Total Protein 7.0 g/dL (6.5-8.0); Triglycerides 132 mg/dL (<150)
[2024-10-30 11:37] LABS: Hemoglobin A1C 271.5687 umol/L; Total Hemoglobin (HGBA1C) 3757.7002 umol/L
--- OUTSIDE RECORDS SUMMARY | 2024-10-30 11:51 | XMS_ITS | Patient Health Record ---
Author Organization [facility] Address [address] [place] [phone] Care Team Providers Care Bacteriologist Fishery Name Role Phone Mauricio Dale MD Primary Care Provider Thien Johnson Unavailable [phone] Allergies No Known Allergies Reason For Referral [...] Problem Status W/U Status Risk Notes Problem 064538573 Encounter for screening for malignant neoplasm of colon (Z12.11) Active confirmed Problem 370972204 History of adenomatous polyp of colon (Z86.010) Active confirmed Problem Screening for malignant neoplasm of rectum (112951634) Encounter for screening for malignant neoplasm of rectum (Z12.12) Active confirmed Problem 964868859 Gastroesophageal reflux disease without esophagitis (K21.9) Active confirmed Problem 796595929 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) Active confirmed Problem Xiao esophagus (495975220) 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 Problem Esophageal reflux finding (390749209) Gastroesophageal reflux (K21.9) Active confirmed Problem Gastroesophageal reflux disease (957996618) GERD without esophagitis (K21.9) Active confirmed Problem Diverticulosis of colon (804362500) Diverticulosis of colon (K57.30) Active confirmed Problem Xiao's esophagus (091687170) 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 pylori Hypertension IDDM Hyperlipidemia Denies NE,CVA,Lung disease,renal disease Arthritis Sleep apnea but does not tolerate his CP AP Negative colonoscopy in 04/2016 EGD in 2016 was negative for any definitive Xiao's; there was no esophagitis; there was a small to moderate-sized hiatal hernia Surgical History Surgery Date(Month/Year) hernia vasectomy appendectomy right knee x2--most recent was 03/2016 [facility] [address]. Caro cataracts rotator cuff tear repair left- Dr. Ange espitia
[2024-10-30 12:10] LABS: Reflex LDLD? No
== END 2024-10-30 07:16 | disposition home or self-care (01) ==
LOC: HO.LNP 07:15
PROVIDERS: Visit Provider Internal Medicine
DX: E11.9 Type 2 diabetes mellitus without complications (principal); E78.00 Pure hypercholesterolemia, unspecified
CPT/HCPCS: 80061; 80076; 82947; 83036

== ENCOUNTER 2024-11-30 10:34 | Outpatient (REF) | payer MEDICARE, SELFPAY ==
--- OUTSIDE RECORDS SUMMARY | 2024-06-06 07:15 | XMS_ITS ---
Author Organization Mauricio Dale MD Address [address] [place], [place] [phone] Care Team Providers Care Quality Control Manager Name Role Phone Mauricio Dale Primary Care Provider Allergies No Known Allergies Results Component Value Reference Range Notes Glucose, finger stick (Not y et reviewed by provider) Interpretation: Performing Lab: Notes/Report: Value 173 Complete Blood Count Auto Di ff Reviewed date:06/06/2024 02:04:54 PM Interpretation: Performing Lab:[facility], [address] [place] [phone] Notes/Report: White Blood Count 6.3 4.8-10.8 X10*3/uL Red Blood Count 4.34 4.60-5.80 X10*6/uL Hemoglobin 13.3 14.0-18.0 g/dl Hematocrit 39.1 42.0-52.0 % Mean Corpuscular Volume 90.1 80.0-98.0 fL Mean Corpuscular Hemoglobin 30.6 27.0-33.0 pg Mean Corpuscular HGB Conc 34.0 31.0-36.0 g/dl Red Cell Distribution Width 13.4 11.0-16.0 % Platelet Count 209 160-400 X10*3/uL Mean Platelet Volume 10.2 9.4-12.4 fL Neutrophils Percent Auto 52.9 45-73 % Imm Gran Pct Auto 0.8 0.0-0.4 % Lymphocytes Percent Auto 35.4 20-40 % Monocytes Percent Auto 9.5 2-11 % Eosinophils Percent Auto 0.8 0-4 % Basophils Percent Auto 0.6 0-2 % NRBC Pct Auto 0.0 0.0-0.2 /100WBC Neutrophils Absolute Auto 3.3 2.0-8.3 x10*3/u L Imm Gran Abs Auto 0.05 0.00-0.03 X10*3/uL Lymphocytes Absolute Auto 2.2 1.2-4.9 X10*3/u L Monocytes Absolute Auto 0.6 0.1-1.2 X10*3/uL Eosinophils Absolute Auto 0.1 0.0-0.4 X10*3/u L Basophils Absolute Auto 0.0 0.0-0.2 X10*3/uL NRBC Abs Auto 0.000 0.0-0.012 X10*3/uL Comprehensive [facility]. Panel Fa st Reviewed date:06/07/2024 07:11:18 PM Interpretation: Performing Lab:[facility], [address] [place] [phone] Notes/Report: Sodium 142 135-145 mmol/L Potassium 4.3 3.3-5.1 mmol/L Chloride 108 96-108 mmol/L Carbon Dioxide 26 22-29 mmol/L Anion Gap 12 12-20 Blood Urea Nitrogen 22 9-16 mg/dL Creatinine 0.91 0.5-1.4 mg/dL Estimated Glomerular Filt Rate > 60 Chronic Kidney Disease: Estimated GFR < 60 mL/min/1.73m2 Severe Kidney Disease: Estimated GFR < 15 mL/min/1.73m2 Glucose Fasting 180 60-99 mg/dL A fasting glucose of 126 mg/dl or greater on more than one occasion is considered diagnostic of diabetes. Calcium 9.4 8.4-10.2 mg/dL Bilirubin Total 0.6 0.0-1.0 mg/dL Aspartate Amino Transferase 37 5-37 U/L Alanine Aminotransferase 45 0-40 U/L Total Protein 7.2 6.5-8.0 g/dL Albumin Level 4.1 3.5-5.0 g/dL Alkaline Phosphatase 103 39-117 U/L REASON FOR VISIT F/U ER Visit Medications Medication SIG (Take, Route, Frequency, Duration) Notes Start Date End Date Status Sildenafil Citrate 100 MG 1 tablet as needed Orally Once a day for 30 day(s) 01/24/2018 Not-Max ing CeleBREX 200 MG 1 capsule with food Orally QOD for 90 days 10/25/2020 Not-Gisela g Valsartan-hydroCHLOROth iazide 320-12.5 MG TAKE 1 TABLET ONCE DAILY for 90 Active Omeprazole 20 MG TAKE 1 CAPSULE ONCE DAILY Active Atorvastatin Calcium 40 MG TAKE 1 TABLET DAILY Orally Once a day Active metFORMIN HCl 500 MG TAKE 2 TABLETS TWIC E A DAY WITH MEALS Active Farxiga 5 MG TAKE 1 TABLET ONCE D AILY INTHE MORNING Active BD Pen Needle Short U/F 31G X 8 MM USE DIRECTED SUBCUTANEOUSLY DAILY three times a day for 90 days Active FreeStyle Lorene 2 Sensor - USE DIRECTED for 84 Activ e One Touch Delica Lancets 0 1 lancet invitro DX: E 11.9 use to test blood sugar once a day for 30 days 12/01/2018 Active Basaglar KwikPen 100 UNIT/ML 58 units Subcutaneous daily 02/18/2024 Active Januvia 100 MG TAKE 1 TABLET BY HILARY TH EVERY DAY Orally Once a day Active OneTouch Ultra Test - as directed In Vit ro test daily for 90 days 08/25/2018 Active Aspir-81 81 MG 1 tablet Orally Once a day Active Vital Signs Blood pressure systolic 122 mm Hg 06/07/19 25 Blood pressure diastolic 48 mm Hg 025 Height 67 in 06/06/2024 Weight 194 lbs 06/06/2024 BMI 30.38 kg/m2 06/06/2024 weight is down 1 pound since 05-25-24 Encounters Encounter Location Date Provider Diagnosis Mauricio Dale MD [address] [place] [address] [place] [phone] 06/06/2024 Mauricio Dale Type 2 diabetes mellitus without complications E11.9 ; Elevated LFTs R79.89 and Viral syndrome B34.9 Assessments Encounter Date Diagnosis (ICD Code) Assessment Notes Treatment Notes Treatment Clinical Notes Section Notes 06/06/2024 Type 2 diabetes mellitus without complications (ICD-10 - E11.9) doing well at present, will continue current regiment 06/06/2024 Elevated LFTs (ICD-10 - R79.89) will recheck pending future labs 06/06/2024 Viral syndrome (ICD-10 - B34.9) will repeat labs Plan Of Treatment Medication Medication Name Sig Start Date Stop Date Notes metFORMIN HCl 500 MG TAKE 2 TABLETS TWIC E A DAY WITH MEALS Farxiga 5 MG TAKE 1 TABLET ONCE D AILY INTHE MORNING Basaglar KwikPen 100 UNIT/ML 58 units Subcutaneous daily 1 04/19/2023 Januvia 100 MG TAKE 1 TABLET BY HILARY TH EVERY DAY Orally Once a day Treatment Notes Assessment Notes Type 2 diabetes mellitus wit hout complications doing well at present, will continue current regiment Elevated LFTs will recheck pending future labs Viral syndrome will repeat labs Pending Test Test Name Order Date Glucose, finger stick 06/06/2024 Next Appt Details Follow Up: 2 Weeks, Reason: Provider Name:Mauricio Cline ier, 05/03/2025 07:30:00 AM, [address] [place] [address], [address], [place], [place], [phone], Provider Name:Mauricio baumr, 05/10/2025 09:30:00 AM, [address] [place] [address], [address], [place], [place], [phone], Progress Notes * KUMAR UmangDOB:1950 ([age] yo M)Acc No.[id number]:06/06/2024 Progress Notes Patient: Umang SALINAS Provider: Roberta Dale MD :1950 A ge:74 Y S ex:Male Date:06/06/2024 Address:[address] [place], [place] [id number] Subjective: * Chief Complaints: * F /U ER Visit * HPI: S ymptom(s): patient is a 74 yo male here for follow up recent ER visit, work up in er was negative. had chills and sweats. no fever. taste is just coming back. no coughing. found to have elevated lft's appetit is just starting to come back. * ROS: G eneral/Constitutional: Denies C hills. A dmits F atigue. D enies F ever. D enies H eadache. E NT: Patient denies d ecreased sense of smell, any loss of taste, sore throat. D enies S ore throat. R espiratory: Denies C ough. D enies S hortness of breath at rest. D enies S hortness of breath with exertion. G astrointestinal: Denies D iarrhea. D enies N ausea. P eripheral Vascular: Patient denies r ed and blue toes. * Medical History: * Surgical History: * Hospitalization/Major Diagno stic Procedure: * Medications: T akingAspir-81 81 MG Tablet Delayed Release 1 tablet Orally Once a day OneTouch Ultra Test - Strip as directed In Vitro test daily One Touch Delica Lancets 0 1 lancet invitro DX: E 11.9 use to test blood sugar once a day FreeStyle Lorene 2 Sensor - Miscellaneous USE DIRECTED BD Pen Needle Short U/F 31G X 8 MM Miscellaneous USE DIRECTED SUBCUTANEOUSLY DAILY three times a day Omeprazole 20 MG Capsule Delayed Release TAKE 1 CAPSULE ONCE DAILY Atorvastatin Calcium 40 MG Tablet TAKE 1 TABLET DAILY Orally Once a day Januvia 100 MG Tablet TAKE 1 TABLET BY MOUTH EVERY DAY Orally Once a day Basaglar KwikPen 100 UNIT/ML Solution Pen-injector 58 units Subcutaneous daily Farxiga 5 MG Tablet TAKE 1 TABLET ONCE DAILY INTHE MORNING Valsartan-hydroCHLOROthiazide 320-12.5 MG Tablet TAKE 1 TABLET ONCE DAILY metFORMIN HCl 500 MG Tablet TAKE 2 TABLETS TWICE A DAY WITH MEALS Taking Aspir-81 81 MG Tablet Delayed Release 1 tablet Orally Once a day Taking OneTouch Ultra Test - Strip as directed In Vitro test daily Taking One Touch Delica Lancets 0 1 lancet invitro DX: E 11.9 use to test blood sugar once a day Taking FreeStyle Lorene 2 Sensor - Miscellaneous USE DIRECTED Taking BD Pen Needle Short U/F 31G X 8 MM Miscellaneous USE DIRECTED SUBCUTANEOUSLY DAILY three times a day Taking Omeprazole 20 MG Capsule Delayed Release TAKE 1 CAPSULE ONCE DAILY Taking Atorvastatin Calcium 40 MG Tablet TAKE 1 TABLET DAILY Orally Once a day Taking Januvia 100 MG Tablet TAKE 1 TABLET BY MOUTH EVERY DAY Orally Once a day Taking Basaglar KwikPen 100 UNIT/ML Solution Pen-injector 58 units Subcutaneous daily Taking Farxiga 5 MG Tablet TAKE 1 TABLET ONCE DAILY INTHE MORNING Taking Valsartan-hydroCHLOROthiazide 320-12.5 MG Tablet TAKE 1 TABLET ONCE DAILY Taking metFORMIN HCl 500 MG Tablet TAKE 2 TABLETS TWICE A DAY WITH MEALS Not-Taking/PRNCeleBREX 200 MG Capsule 1 capsule with food Orally QOD Sildenafil Citrate 100 MG Tablet 1 tablet as needed Orally Once a day Medication List reviewed and reconciled with the patientNot-Taking/PRN CeleBREX 200 MG Capsule 1 capsule with food Orally QOD Not-Taking/PRN Sildenafil Citrate 100 MG Tablet 1 tablet as needed Orally Once a day Medication List reviewed and reconciled with the patient * Allergies: N .K.D.A.yes[Allergies Verified] Objective: * Vitals: H t: 67, Wt: 194, BMI:30.38, BP:122/48, Wt-k. weight is down 1 pound since 05-25-24. * Examination: G eneral Examination: GENERAL APPEARANCE: a lert, well hydrated, in no distress.? HEAD: n ormocephalic. SKIN: g ood turgor. HEART: n o murmurs, rubs, gallops, regular rate and rhythm.? LUNGS: n o wheezes, rales, rhonchi, good air movement, clear to auscultation bilaterally. Assessment: * Assessment: 1. T ype 2 diabetes mellitus without complications - E11.9 (Primary) 2 . E levated LFTs - R79.89 3 . V iral syndrome - B34.9 Plan: * Treatment: Value Reference Range V alue 173 ?LAB: Complete Blood Count Auto Diff (Collection Date & Time - 06/06/2024 11:15 AM) ?LAB: Comprehensive [facility]. Panel Fast (Collection Date & Time - 06/06/2024 11:15 AM) Notes: doing well at present, will continue current regiment??2.?Elevated LFTs? Notes: will recheck pending future labs??3.?Viral syndrome? Notes: will repeat labs?? * Procedure Codes: 8 2947 ASSAY, GLUCOSE, BLOOD QUANT, Modifiers: QW 79389 VENIPUNCT, ROUTINE* * Follow Up: 2 Weeks * * Sign off status: Completed true * Provider: Roberta Dale MD Date: 0 06/06/2024 Generated for Sam macdonald/Delroy/eTransmitting on: 0 11/30/2024 11:59 AM EDT History and Physical Notes * HPI (History of Present Illness) Category Sub-Category Detail Notes Category Not es Symptom(s) patient is a 74 yo male here for follow up recent ER visit, work up in er was negative. had chills and sweats. no fever. taste is just coming back. no coughing. found to have elevated lft's appetit is just starting to come back Examination Category Sub-Category Detail Notes Category Not es General Examination GENERAL APPEARANCE: alert, w ell hydrated, in no distress HEAD: normocephalic HEART: no murmurs, rubs, ga llops, regular rate and rhythm LUNGS: no wheezes, rales, r honchi, good air movement, clear to auscultation bilaterally SKIN: good turgor
--- OUTSIDE RECORDS SUMMARY | 2024-06-20 05:15 | XMS_ITS ---
Author Organization Mauricio Dale MD Address [address] [place], [place] [phone] Care Team Providers Care Division Head Name Role Phone Mauricio Dale Primary Care [...] Date Provider Diagnosis Mauricio Dale MD [address] [place], [place] [phone] 06/20/2024 Mauricio Dale Type 2 diabetes mellitus [...] repeat Next Appt Details Provider Name:Mauricio kovacs, 05/03/2025 07:30:00 AM, [address], [address], [place], [place], [phone], Provider Name:Mauricio kovacs, 05/10/2025 09:30:00 AM, [address] [place] [address], [address], [place], [place], [phone], Progress Notes * Umang HEATHDOB:1950 ([age] yo M)Acc No.[id number]:06/20/2024 Progress Notes Patient: Umang SALINAS Provider: Roberta Dale MD :1950 A ge:74 Y S ex:Male Date:06/20/2024 Address:[address] [place], [place] [phone] Subjective: * Chief Complaints: * 1 . [...] 09/22 21 repeat in 5 years. * Medications: T [...] Dale MD Date: 0 06/20/2024 Generated for Alexi renae/Delroy/eTransmitting on: 0 11/30/2024 12:00 PM EDT History and Physical Notes * [...]
--- OUTSIDE RECORDS SUMMARY | 2024-10-30 03:15 | XMS_ITS ---
Author Organization Mauricio Dale MD Address [address] [place], [place] [phone] Care Team Providers Care General Production Manager Name Role Phone Mauricio Dale Primary Care Provider [phone] Results Component Value Reference Range Notes Liver Panel Reviewed date:10/30/2024 02:16:00 PM Interpretation: Performing Lab:[facility], [address] [place] [phone] Notes/Report: Bilirubin Total 0.8 0.0-1.0 mg/dL Bilirubin Direct 0.3 0.0-0.5 mg/dL Aspartate Amino Transferase 45 5-37 U/L Alanine Aminotransferase 50 0-40 U/L Total Protein 7.0 6.5-8.0 g/dL Albumin Level 4.4 3.5-5.0 g/dL Alkaline Phosphatase 105 39-117 U/L Glucose Fasting Reviewed date:10/30/2024 01:12:06 PM Interpretation: Performing Lab:[facility], [address] [place] [phone] Notes/Report: Glucose Fasting 155 60-99 mg/dL A fasting glucose of 126 mg/dl or greater on more than one occasion is considered diagnostic of diabetes. Lipid Panel with Reflex Reviewed date:10/30/2024 02:16:45 PM Interpretation: Performing Lab:[facility], [address] [place] [phone] Notes/Report: Triglycerides 132 <150 mg/dL Desirable Triglyceride: less than 150 mg/dL Borderline High Triglyceride 150-199 mg/dL High Triglyceride: 200-499 mg/dL Very High Triglyceride: greater than or equal to 5OO mg/dL Cholesterol 164 <200 mg/dL Desirable Cholesterol: less than 200 mg/dL Borderline High Cholesterol: 200-239 mg/dL High Cholesterol: greater than 239 mg/dL LDL Cholesterol Calculated 93 <100 mg/dL Desirable LDL: less than 100 mg/dL Near Optimal/Above Optimal LDL: 110-129 mg/dL Borderline High LDL: 130-159 mg/dL High LDL: 160-189 mg/dL Very High LDL: greater than or equal to 190 mg/dL HDL Cholesterol 45 >40 mg/dL Desirable HDL: greater than 40 mg/dL Note: This HDL assay may give artificially low results in patients with liver disease. Hemoglobin A1c Reviewed date:10/30/2024 01:11:58 PM Interpretation: Performing Lab:[facility], [address] [place] [phone] Notes/Report: Hemoglobin A1c % 8.8 <6.0 % Hemoglobin A1C Reference Range Adults: 4.8 - 6.0 % Non diabetic: < 6.0 % Goal: < 7.0 % Additional Action Suggested: > 8.0 % Note: Hemoglobin A1c results are invalid for patients with abnormal amounts of HbF. Blood transfusions may impact the HbA1c concentration in the patient sample. Estimated Average Glucose 206 eAG = Estimated average glucose which is %A1C expressed as average glucose, using the formula of the C8G-Ohxiyxm Average Glucose study (ADAG), Diabetes Care, Vol.31,#8, Oct. 2007 REASON FOR VISIT fasting lipids Encounters Encounter Location Date Provider Diagnosis Mauricio Dale MD [address] [place] [address] [address] [place], [place] [phone] 10/30/2024 Mauricio Dale Type 2 diabetes nany itus without complications E11.9 and Hypercholesteremia E78.00 Assessments Encounter Date Diagnosis (ICD Code) Assessment Notes Treatment Notes Treatment Clinical Notes Section Notes 10/30/2024 Type 2 diabetes mellitus without complications (ICD-10 - E11.9) 10/30/2024 Hypercholesteremia (ICD-10 - E78.00) Plan Of Treatment Next Appt Details Provider Name:Mauricio kovacs, 05/03/2025 07:30:00 AM, [address] [facility], [address], [place], [place], [phone], Provider Name:Mauricio Cline ier, 05/10/2025 09:30:00 AM, [address], [address], [place], [place], [phone], Progress Notes * Umang HEATHDOB:1950 ([age] yo M)Acc No.[id number]:10/30/2024 Progress Note Patient: Umang SALINAS Provider: Roberta Dale MD :1950 A ge:74 Y S ex:Male Date:10/30/2024 Address:[address] [place], [place] [phone] Subjective: * Chief Complaints: * 1 . Fasting lipids. * Medical History: Objective: * Vitals: Assessment: * Assessment: 1. T ype 2 diabetes mellitus without complications - E11.9 (Primary) 2 . H ypercholesteremia - E78.00 Plan: * Treatment: 2. H ypercholesteremia L AB: Liver Panel (Collection Date & Time - 10/30/2024 07:15 AM) L AB: Glucose Fasting (Collection Date & Time - 10/30/2024 07:15 AM) L AB: Lipid Panel with Reflex (Collection Date & Time - 10/30/2024 07:15 AM) L AB: Hemoglobin A1c (Collection Date & Time - 10/30/2024 07:15 AM) * Procedure Codes: 3 6415 VENIPUNCT, ROUTINE* * * The named appointment provid er may or may not be the originator of this progress note, and it is not deemed complete until electronically signed by the appointment provider. Sign off status: Pending * Provider: Roberta Dale MD Date: 0 10/30/2024 Generated for Sam macdonald/Delroy/Marcelinoitting on: 0 11/30/2024 12:00 PM EDT
--- OUTSIDE RECORDS SUMMARY | 2024-11-06 06:00 | XMS_ITS ---
Author Organization Mauricio Dale MD Address [address] [place], [place] [phone] Care Team Providers Care Digital Advertising Analyst Name Role Phone Mauricio Dale Primary Care Provider Allergies No Known Allergies REASON FOR VISIT 6 months Medications Medication SIG (Take, Route, Frequency, Duration) Notes Start Date End Date Status Atorvastatin Calcium 40 MG TAKE 1 TABLET ONCE DAILY Act jerry metFORMIN HCl 500 MG TAKE 2 TABLETS TWIC E A DAY WITH MEALS Active Omeprazole 20 MG TAKE 1 CAPSULE ONCE DAILY Active BD Pen Needle Short U/F 31G X 8 MM USE DIRECTED SUBCUTANEOUSLY DAILY three times a day for 90 days Active Farxiga 5 MG TAKE 1 TABLET ONCE D AILY INTHE MORNING Active Basaglar KwikPen 100 UNIT/ML 58 units Subcutaneous daily 02/18/2024 Active Januvia 100 MG TAKE 1 TABLET BY HILARY TH EVERY DAY Orally Once a day Active One Touch Delica Lancets 0 1 lancet invitro DX: E 11.9 use to test blood sugar once a day for 30 days 12/01/2018 Active OneTouch Ultra Test - as directed In Vit ro test daily for 90 days 08/25/2018 Active Valsartan-hydroCHLOROth iazide 320-12.5 MG TAKE 1 TABLET ONCE DAILY Active Sildenafil Citrate 100 MG 1 tablet as needed Orally Once a day for 30 day(s) 01/24/2018 Not-Max ing CeleBREX 200 MG 1 capsule with food Orally QOD for 90 days 10/25/2020 Not-Takin g Aspir-81 81 MG 1 tablet Orally Once a day Active FreeStyle Lorene 2 Sensor - USE DIRECTED for 84 Activ e CeleBREX 200 MG 1 capsule Orally Onc e a day Active Vital Signs Blood pressure systolic 132 mm Hg 11/07/19 25 Blood pressure diastolic 56 mm Hg 025 Height 67 in 11/06/2024 Weight 203 lbs 11/06/2024 BMI 31.79 kg/m2 11/06/2024 weight is up 4 pounds since 06-20-24 Encounters Encounter Location Date Provider Diagnosis Mauricio Dale MD [address] [place] [address] [address] [place] [phone] 11/06/2024 Mauricio Dale Type 2 diabetes nany itus without complications E11.9 ; Hypercholesteremia E78.00 and Essential hypertension I10 Assessments Encounter Date Diagnosis (ICD Code) Assessment Notes Treatment Notes Treatment Clinical Notes Section Notes 11/06/2024 Type 2 diabetes mellitus without complications (ICD-10 - E11.9) increase insulin to 65 units. 11/06/2024 Hypercholesteremia (ICD-10 - E78.00) doing well on meds, will continue curent regiment 11/06/2024 Essential hypertensi on (ICD-10 - I10) doing well, will continue current regiment Plan Of Treatment Medication Medication Name Sig Start Date Stop Date Notes Atorvastatin Calcium 40 MG TAKE 1 TABLET ONCE DAILY metFORMIN HCl 500 MG TAKE 2 TABLETS TWIC E A DAY WITH MEALS Farxiga 5 MG TAKE 1 TABLET ONCE D AILY INTHE MORNING Basaglar KwikPen 100 UNIT/ML 58 units Subcutaneous daily 1 04/19/2023 Januvia 100 MG TAKE 1 TABLET BY HILARY TH EVERY DAY Orally Once a day Valsartan-hydroCHLOROthiazid e 320-12.5 MG TAKE 1 TABLET ONCE DAILY Treatment Notes Assessment Notes Type 2 diabetes mellitus without complic ations increase insulin to 65 units. Hypercholesteremia doing well on meds, will continue curent regiment Essential hypertension doing well, will continue current regiment Next Appt Details Provider Name:Mauricio kovacs, 05/03/2025 07:30:00 AM, [address] [place] [address], [address], [place], [place], [phone], Provider Name:Mauricio kovacs, 05/10/2025 09:30:00 AM, [address] [place] [address], [address], [place], [place], [phone], Progress Notes * Umang HEATHDOB:1950 ([age] yo M)Acc No.[id number]:11/06/2024 Progress Notes Patient: Umang SALINAS Provider: Roberta Dale MD :1950 A ge:74 Y S ex:Male Date:11/06/2024 Address:[address] [place] [address] [id number] Subjective: * Chief Complaints: * 6 months * HPI: S ymptom(s): patient is a 74 yo male here for 6 month follow up.has been doing well. * ROS: G eneral/Constitutional: Denies C hills. D enies F atigue. D enies F ever. D enies H eadache. E NT: Denies S ore throat. E ndocrine: Denies D ifficulty sleeping. D enies D izziness.?Denies E xcessive sweating. D enies E xcessive thirst. D enies F requent urination. R espiratory: Denies C ough. D enies S hortness of breath at rest. D enies S hortness of breath with exertion. G astrointestinal: Denies D iarrhea. D enies N ausea. * Medical History: * Surgical History: * Hospitalization/Major Diagno stic Procedure: * Medications: T akingCeleBREX 200 MG Capsule 1 capsule Orally Once a day Aspir-81 81 MG Tablet Delayed Release 1 tablet Orally Once a day OneTouch Ultra Test - Strip as directed In Vitro test daily One Touch Delica Lancets 0 1 lancet invitro DX: E 11.9 use to test blood sugar once a day BD Pen Needle Short U/F 31G X 8 MM Miscellaneous USE DIRECTED SUBCUTANEOUSLY DAILY three times a day Omeprazole 20 MG Capsule Delayed Release TAKE 1 CAPSULE ONCE DAILY Valsartan-hydroCHLOROthiazide 320-12.5 MG Tablet TAKE 1 TABLET ONCE DAILY Januvia 100 MG Tablet TAKE 1 TABLET BY MOUTH EVERY DAY Orally Once a day Basaglar KwikPen 100 UNIT/ML Solution Pen-injector 58 units Subcutaneous daily Farxiga 5 MG Tablet TAKE 1 TABLET ONCE DAILY INTHE MORNING metFORMIN HCl 500 MG Tablet TAKE 2 TABLETS TWICE A DAY WITH MEALS Atorvastatin Calcium 40 MG Tablet TAKE 1 TABLET ONCE DAILY FreeStyle Lorene 2 Sensor - Miscellaneous USE DIRECTED Taking CeleBREX 200 MG Capsule 1 capsule Orally Once a day Taking Aspir-81 81 MG Tablet Delayed Release 1 tablet Orally Once a day Taking OneTouch Ultra Test - Strip as directed In Vitro test daily Taking One Touch Delica Lancets 0 1 lancet invitro DX: E 11.9 use to test blood sugar once a day Taking BD Pen Needle Short U/F 31G X 8 MM Miscellaneous USE DIRECTED SUBCUTANEOUSLY DAILY three times a day Taking Omeprazole 20 MG Capsule Delayed Release TAKE 1 CAPSULE ONCE DAILY Taking Valsartan-hydroCHLOROthiazide 320-12.5 MG Tablet TAKE 1 TABLET ONCE DAILY Taking Januvia 100 MG Tablet TAKE 1 TABLET BY MOUTH EVERY DAY Orally Once a day Taking Basaglar KwikPen 100 UNIT/ML Solution Pen-injector 58 units Subcutaneous daily Taking Farxiga 5 MG Tablet TAKE 1 TABLET ONCE DAILY INTHE MORNING Taking metFORMIN HCl 500 MG Tablet TAKE 2 TABLETS TWICE A DAY WITH MEALS Taking Atorvastatin Calcium 40 MG Tablet TAKE 1 TABLET ONCE DAILY Taking FreeStyle Lorene 2 Sensor - Miscellaneous USE DIRECTED Not-Taking/PRNCeleBREX 200 MG Capsule 1 capsule with [...] Objective: * Vitals: H t: 67, Wt: 203, BMI:31.79, BP:132/56, Wt-k.08. weight is up 4 pounds since 06-20-24. * P ast Orders: L ab:Liver Panel (Order Date - 10/30/2024) (Collection Date & Time - 10/30/2024 07:15 AM) Value Reference Range Bilirubin Total 0.8 0.0-1.0 - mg/dL Bilirubin Direct 0.3 0.0-0.5 - mg/dL Aspartate Amino Transferase 45 H 5-37 - U/L Alanine Aminotransferase 50 H 0-40 - U/L Total Protein 7.0 6.5-8.0 - g/dL Albumin Level 4.4 3.5-5.0 - g/dL Alkaline Phosphatase 105 39-117 - U/L L ab:Glucose Fasting (Order Date - 10/30/2024) (Collection Date & Time - 10/30/2024 07:15 AM) Value Reference Range Glucose Fasting 155 H 60-99 - mg/dL L ab:Lipid Panel with Reflex (Order Date - 10/30/2024) (Collection Date & Time - 10/30/2024 07:15 AM) Value Reference Range Triglycerides 132 <150 - mg/dL Cholesterol 164 <200 - mg/dL LDL Cholesterol Calculated 93 <100 - mg/dL HDL Cholesterol 45 >40 - mg/dL L ab:Hemoglobin A1c (Order Date - 10/30/2024) (Collection Date & Time - 10/30/2024 07:15 AM) Value Reference Range Hemoglobin A1c % 8.8 H <6.0 - % Estimated Average Glucose 206 - mg/dL * Examination: G eneral Examination: GENERAL APPEARANCE: [...] (Primary) 2 . H ypercholesteremia - E78.00 3 . E ssential hypertension - I10 Plan: * Treatment: 2. H ypercholesteremia Continue Atorvastatin Calcium Tablet, 40 MG, TAKE 1 TABLET ONCE DAILY. Notes: doing well on meds, will continue curent regiment 3. E ssential hypertension Continue Valsartan-hydroCHLOROthiazide Tablet, 320-12.5 MG, TAKE 1 TABLET ONCE DAILY. Notes: doing well, will continue current regiment * Procedure Codes: * * Sign off status: Completed true * Provider: Roberta Dale MD Date: 0 11/06/2024 Generated for Sam macdonald/Delroy/Michelleransmitting on: 0 11/30/2024 11:59 AM EDT History and Physical Notes * HPI (History of Present Illness) Category Sub-Category Detail Notes Category Not es Symptom(s) patient is a 74 yo male here for 6 month follow up.has been doing well Examination Category Sub-Category Detail Notes Category Not es General Examination GENERAL APPEARANCE: alert, w ell hydrated, in no distress HEAD: normocephalic HEART: regular rate and rhy thm, no murmurs, rubs, gallops LUNGS: no wheezes, rales, r honchi, good air movement, clear to auscultation bilaterally SKIN: good turgor
--- NOTE | ~2024-11-30 | US_ITS ---
EXAMINATION: US TRIPLEX LOWER EXTREMITY, LEFT CLINICAL INFORMATION: Left lower extremity pain with calf tenderness. COMPARISON: None available. TECHNIQUE: Color-flow triplex imaging with spectral analysis and compression Doppler were performed on the left lower extremity. FINDINGS: Respiratory variation, normal compression and augmented flow are noted throughout the left lower extremity. The visualized common femoral vein, superficial femoral vein, profunda femoral vein, popliteal vein and midcalf peroneal and posterior tibial venous segments show no evidence of deep venous thrombosis. There is no Mann's cyst. US/US venous duplex LE LT IMPRESSION: No evidence of deep venous thrombosis involving the left lower extremity. Electronically signed by: Antonio Harris MD 11/30/2024 11:11 AM EDT
--- OUTSIDE RECORDS SUMMARY | 2024-11-30 06:00 | XMS_ITS ---
Author Organization Mauricio Dale MD Address [address] [place], [place] [id number] Care Team Providers Care Reverberatory Skimmer Name Role Phone Mauricio Dale Primary Care Provider [phone] Allergies No Known Allergies REASON FOR VISIT [...] food Orally QOD for 90 days 10/25/2020 Not-Maxin g Immunizations Vaccine Route Administration Date Status Comme nts Influenza High Dose IM Intramuscular 11/30/2024 Administer ed Vital Signs Blood pressure systolic 112 mm Hg 12/01/19 25 Blood pressure diastolic 50 mm Hg 025 Height 67 in 11/30/2024 Weight 203 lbs 11/30/2024 BMI 31.79 kg/m2 11/30/2024 Encounters Encounter Location Date Provider Diagnosis Mauricio Dale MD [address] [place] [address] [place] [phone] 11/30/2024 Mauricio Dale Calf tenderness M79.669 and Encounter for administration of vaccine Z23 Assessments Encounter Date Diagnosis (ICD Code) Assessment Notes Treatment Notes Treatment Clinical Notes Section Notes 11/30/2024 Calf tenderness (ICD-10 - M79.669) if negative will just contue with celebrex and add tylenol/ being done at [facility] [place]. 11/30/2024 Encounter for administration of vaccine (ICD-10 - Z23) Plan Of Treatment Treatment Notes Assessment Notes Calf tenderness if negative will jus t contue with celebrex and add tylenol/ being done at [facility] [place] today. Pending Test Test Name Order Date US LEG LT VENOUS DOPPLER 11/30/2024 Next Appt Details Provider Name:Mauricio kovacs, 05/03/2025 07:30:00 AM, [address] [place] [address], [address], [phone], Provider Name:Mauricio kovacs, 05/10/2025 09:30:00 AM, [address] [place] [address], Suite [facility], [place], [place], [phone], Progress Notes * Umang HEATHDOB:1950 ([age] yo M)Acc No.[id number]:11/30/2024 Progress Notes Patient: Umang SALINAS Provider: Roberta Dale MD :1950 A ge:74 Y S ex:Male Date:11/30/2024 Address:[address] [place], [place] [id number] Subjective: * Chief Complaints: * 1 . Left calf pain off and on x 4-5 weeks. * HPI: S ymptom(s): patient is a 74 yo male here with complaint of left calf pain off and on/ here for leg pain. not swelling and no radiation. * ROS: G eneral/Constitutional: Denies Eduardo hills. D enies F atigue. D enies F ever. D enies H eadache. E NT: Denies S ore throat. R espiratory: Denies C ough. D enies S hortness of breath at rest. D enies S hortness of breath with exertion. G astrointestinal: Denjeromy D iarrhea. D enies N ausea. * [...] blood sugar once a day , Taking BD Pen Needle Short U/F 31G X 8 MM Miscellaneous USE DIRECTED SUBCUTANEOUSLY DAILY three times a day , Taking FreeStyle Lorene 2 Sensor - Miscellaneous USE DIRECTED , Taking Valsartan-hydroCHLOROthiazide 320-12.5 MG Tablet TAKE 1 TABLET ONCE DAILY , Taking Basaglar KwikPen 100 UNIT/ML Solution Pen-injector 65 units Subcutaneous daily , Taking Farxiga 5 MG Tablet TAKE 1 TABLET ONCE DAILY INTHE MORNING , Taking metFORMIN HCl 500 MG Tablet TAKE 2 TABLETS TWICE A DAY WITH MEALS , Taking Atorvastatin Calcium 40 MG Tablet TAKE 1 TABLET ONCE DAILY , Taking Omeprazole 20 MG Capsule Delayed Release TAKE 1 CAPSULE DAILY , Taking Januvia 100 MG Tablet TAKE 1 TABLET ONCE DAILY , Not-Taking/PRN CeleBREX 200 MG Capsule 1 [...] or redness.. Assessment: * Assessment: 1. C correction tenderness - M79.669 (Primary) 2 . E ncounter for administration of vaccine - Z23 Plan: * Treatment: * Immunizations: Influenza High Dose : 0.5 mL (Dose No:1) (Route: Intramuscular) given by Gregoria Miranda , Office Staff on Left Deltoid * Procedure Codes: 9 0662 FLU VACC PRSV FREE INC ANTIG, 18599 IMMUNIZATION ADMIN * * The named appointment provid er may or may not be the originator of this progress note, and it is not deemed complete until electronically signed by the appointment provider. Sign off status: Pending * Provider: Roberta Dale MD Date: 0 11/30/2024 Generated for Sam macdonald/Delroy/Marcelinoitting on: 0 11/30/2024 11:59 AM EDT History [...]
--- OUTSIDE RECORDS SUMMARY | 2024-11-30 12:00 | XMS_ITS | Patient Health Record ---
Author Organization Mauricio Dale MD Address [address] [place], [place] [id number] Care Team Providers Care Tree Loader Meat Name Role Phone Mauricio Dale Primary Care Provider [phone] Allergies No Known Allergies Results Component Value Reference Range Notes Complete Blood Count Auto Di ff Reviewed date:04/27/2024 12:21:20 PM Interpretation: Performing Lab:[facility], [address] [place] [phone] Notes/Report: White Blood Count 5.6 4.8-10.8 X10*3/uL [...] NRBC Abs Auto 0.000 0.0-0.012 X10*3/uL Comprehensive [place]. Panel Fa st Reviewed date:04/27/2024 12:17:59 PM Interpretation: Performing Lab:[address] [phone] Notes/Report: Sodium 144 135-145 mmol/L Potassium 4.0 [...] Panel Reviewed date:04/27/2024 12:18:16 PM Interpretation: Performing Lab:[address] [phone] Notes/Report: Triglycerides 239 <150 mg/dL Desirable Triglyceride: [...] (Free>4and<10) Reviewed date:04/27/2024 12:18:08 PM Interpretation: Performing Lab:[address] [phone] Notes/Report: PSA,Total (Free>4and<10) 1.66 0.00-4.00 ng/mL A [...] Random Reviewed date:04/27/2024 12:21:53 PM Interpretation: Performing Lab:[address] [phone] Notes/Report: Creatinine Urine 130.05 Microalbumin Urine 46.0 Microalbum/Creatinine Ratio Ur 35.3 <30 ug/mg cr Albumin/Creatinine Ratio Reference Ranges: Normal: < 30 ug/mg creatinine Microalbuminuria: 30 - 300 ug/mg creatinine Clinical Albuminuria: > 300 ug/mg creatinine Hemoglobin A1c Reviewed date:04/27/2024 12:14:06 PM Interpretation: Performing Lab:[address] [address] Notes/Report: Hemoglobin A1c % 8.1 <6.0 % [...] average glucose, using the formula of the E7Q-Qomltbe Average Glucose study (ADAG), Diabetes Care, Vol.31,#8, Oct. 2007 UA ClnCatch+Micro w/rflx Cul t Reviewed date:04/27/2024 12:14:34 PM Interpretation: Performing Lab:[facility], [address] [place] [phone] Notes/Report: [id number] Urine, Clean Catch Color Urine Yellow Appearance Urine Clear PH 5.5 5.0-9.0 Glucose Urine UA >=1000 Negative mg/dL Urine Blood Negative Negative Specific [place] - Urine >= 1.030 1.005-1.025 Urine Protein Trace Neg-Trace mg/dL Urine Ketones Trace Negative mg/dL Nitrite Urine Negative Negative Leukocyte Esterase Urine Negative Negative RBC Urine 0-2 0-2 /HPF WBC Urine 0-5 0-5 /HPF Squamous Epithelial Cell Urine 0-2 0-2 /HPF Bacteria Urine None Seen None Seen Hyaline Casts Urine 0-2 0-2 /LPF Complete Blood Count Auto Di ff Reviewed date:05/18/2024 12:48:07 PM Interpretation: Performing Lab:[facility], [address] [place] [phone] Notes/Report: White Blood Count 5.7 4.8-10.8 X10*3/uL [...] X10*3/uL NRBC Abs Auto 0.000 0.0-0.012 X10*3/uL Glucose, finger stick Reviewed date:06/20/2024 09:16:23 AM Interpretation: Performing Lab: Notes/Report: Value 202 Liver Panel Reviewed date:10/30/2024 02:16:00 PM Interpretation: Performing Lab:[facility], [address] [place] [phone] Notes/Report: Bilirubin Total 0.8 0.0-1.0 mg/dL Bilirubin Direct 0.3 0.0-0.5 mg/dL Aspartate Amino Transferase 45 5-37 U/L Alanine Aminotransferase 50 0-40 U/L Total Protein 7.0 6.5-8.0 g/dL Albumin Level 4.4 3.5-5.0 g/dL Alkaline Phosphatase 105 39-117 U/L Glucose Fasting Reviewed date:10/30/2024 01:12:06 PM Interpretation: Performing Lab:[facility], [address] [place] [phone] Notes/Report: Glucose Fasting 155 60-99 mg/dL A fasting glucose of 126 mg/dl or greater on more than one occasion is considered diagnostic of diabetes. Lipid Panel with Reflex Reviewed date:10/30/2024 02:16:45 PM Interpretation: Performing Lab:[facility], [address] [place] [phone] Notes/Report: Triglycerides 132 <150 mg/dL Desirable Triglyceride: [...] A1c Reviewed date:10/30/2024 01:11:58 PM Interpretation: Performing Lab:[facility], [address] [place] [phone] Notes/Report: Hemoglobin A1c % 8.8 <6.0 % [...] average glucose, using the formula of the M9D-Mplbmgm Average Glucose study (ADAG), Diabetes Care, Vol.31,#8, Oct. 2007 Glucose, finger stick (Not y et reviewed by provider) Interpretation: Performing Lab: Notes/Report: Value 173 Complete Blood Count Auto Di ff Reviewed date:06/06/2024 02:04:54 PM Interpretation: Performing Lab:[facility], [address] [place] [phone] Notes/Report: White Blood Count 6.3 4.8-10.8 X10*3/uL [...] NRBC Abs Auto 0.000 0.0-0.012 X10*3/uL Comprehensive [place]. Panel Fa st Reviewed date:06/07/2024 07:11:18 PM Interpretation: Performing Lab:[facility], [address] [place] [phone] Notes/Report: Sodium 142 135-145 mmol/L Potassium 4.3 [...] Complete Blood Count Auto Di ff Reviewed date:05/25/2024 04:59:53 PM Interpretation: Performing Lab:[facility], [address] [place] [phone] Notes/Report: White Blood Count 4.9 4.8-10.8 X10*3/uL Red Blood Count 4.77 4.60-5.80 X10*6/uL Hemoglobin 14.7 14.0-18.0 g/dl Hematocrit 42.1 42.0-52.0 % Mean Corpuscular Volume 88.3 80.0-98.0 fL Mean Corpuscular Hemoglobin 30.8 27.0-33.0 pg Mean Corpuscular HGB Conc 34.9 31.0-36.0 g/dl Red Cell Distribution Width 13.5 11.0-16.0 % Platelet Count 118 160-400 X10*3/uL Mean Platelet Volume 10.0 9.4-12.4 fL Neutrophils Percent Auto 74.5 45-73 % Imm Gran Pct Auto 1.4 0.0-0.4 % Lymphocytes Percent Auto 13.4 20-40 % Monocytes Percent Auto 10.3 2-11 % Eosinophils Percent Auto 0.0 0-4 % Basophils Percent Auto 0.4 0-2 % NRBC Pct Auto 0.0 0.0-0.2 /100WBC Neutrophils Absolute Auto 3.6 2.0-8.3 x10*3/u L Imm Gran Abs Auto 0.07 0.00-0.03 X10*3/uL Lymphocytes Absolute Auto 0.7 1.2-4.9 X10*3/u L Monocytes Absolute Auto 0.5 0.1-1.2 X10*3/uL Eosinophils Absolute Auto 0.0 0.0-0.4 X10*3/u L Basophils Absolute Auto 0.0 0.0-0.2 X10*3/uL NRBC Abs Auto 0.000 0.0-0.012 X10*3/uL White Blood Count 4.9 4.8-10.8 X10*3/uL Red Blood Count 4.77 4.60-5.80 X10*6/uL Hemoglobin 14.7 14.0-18.0 g/dl Hematocrit 42.1 42.0-52.0 % Mean Corpuscular Volume 88.3 80.0-98.0 fL Mean Corpuscular Hemoglobin 30.8 27.0-33.0 pg Mean Corpuscular HGB Conc 34.9 31.0-36.0 g/dl Red Cell Distribution Width 13.5 11.0-16.0 % Platelet Count 118 160-400 X10*3/uL Mean Platelet Volume 10.0 9.4-12.4 fL Neutrophils Percent Auto 74.5 45-73 % Imm Gran Pct Auto 1.4 0.0-0.4 % Lymphocytes Percent Auto 13.4 20-40 % Monocytes Percent Auto 10.3 2-11 % Eosinophils Percent Auto 0.0 0-4 % Basophils Percent Auto 0.4 0-2 % NRBC Pct Auto 0.0 0.0-0.2 /100WBC Neutrophils Absolute Auto 3.6 2.0-8.3 x10*3/u L Imm Gran Abs Auto 0.07 0.00-0.03 X10*3/uL Lymphocytes Absolute Auto 0.7 1.2-4.9 X10*3/u L Monocytes Absolute Auto 0.5 0.1-1.2 X10*3/uL Eosinophils Absolute Auto 0.0 0.0-0.4 X10*3/u L Basophils Absolute Auto 0.0 0.0-0.2 X10*3/uL NRBC Abs Auto 0.000 0.0-0.012 X10*3/uL CORRECTED REPORT CORRECTED REPORT Comprehensive Met. Panel Reviewed date:05/25/2024 05:00:22 PM Interpretation: Performing Lab:[facility], [address] [place] [phone] Notes/Report: Sodium 139 135-145 mmol/L Potassium 4.4 3.3-5.1 mmol/L [place] 104 96-108 mmol/L Carbon Dioxide 25 22-29 mmol/L Anion Gap 14 12-20 Blood Urea Nitrogen 23 9-16 mg/dL Creatinine 0.90 0.5-1.4 mg/dL Creatinine Clr Calc Pharmacy 75.0 eGFR (calculated from the MDRD study equation) and eCrCl (calculated from the Cockcroft-Gault equation) are based on different parameters and may not yield comparable results. If eCrCl result is absurd, please check patient's height/weight. Estimated Glomerular Filt Rate > 60 Chronic Kidney Disease: Estimated GFR < 60 mL/min/1.73m2 Severe Kidney Disease: Estimated GFR < 15 mL/min/1.73m2 Glucose Random 142 60-115 mg/dL Calcium 9.9 8.4-10.2 mg/dL Bilirubin Total 1.3 0.0-1.0 mg/dL Aspartate Amino Transferase 89 5-37 U/L Alanine Aminotransferase 91 0-40 U/L Total Protein 8.2 6.5-8.0 g/dL Albumin Level 4.5 3.5-5.0 g/dL Alkaline Phosphatase 133 39-117 U/L Lipase Reviewed date:05/25/2024 05:00:02 PM Interpretation: Performing Lab:[facility], [address] [place] [phone] Notes/Report: Lipase 56 8-78 U/L SLIDE REVIEW Reviewed date:05/25/2024 04:59:27 PM Interpretation: Performing Lab:[facility], [address] [place] [phone] Notes/Report: SLIDE REVIEW VERIFIED SARS-CoV2/FLU/RSV Reviewed date:05/26/2024 04:27:15 PM Interpretation: Performing Lab:[facility], [address] [place] [phone] Notes/Report: Influenza A PCR NEGATIVE Negative Influenza B PCR NEGATIVE Negative Resp Syncy Virus RNA Qual PCR NEGATIVE Negative SARS COV2 PCR INHOUSE NEGATIVE Negative All test results must be correlated with clinical findings. Negative results do not preclude SARS-CoV2, influenza A virus, influenza B virus and/or RSV infection and should not be used as the sole basis for treatment or other patient management decisions. Negative results must be combined with clinical observations, patient history, and epidemiological information. This test has not been evaluated for monitoring treatment of infection. This test has been authorized by the FDA under an Emergency Use Authorization (EUA) for use by authorized laboratories. Testing performed on the [employer] GeneXpert utilizing real-time RT-PCR. All SARS CoV2 and positive influenza A/B results are reported to [facility]. UA ClnCatch+Micro w/rflx Cul t Reviewed date:05/25/2024 05:00:42 PM Interpretation: Performing Lab:[facility], [address] [place] [phone] Notes/Report: [id number] Urine, Clean Catch Color Urine Dark Yellow Appearance Urine Clear PH 5.5 5.0-9.0 Glucose Urine UA >=1000 Negative mg/dL Urine Blood Negative Negative Specific [place] - Urine >= 1.030 1.005-1.025 Urine Protein 30 (1+) Neg-Trace mg/dL Urine Ketones Trace Negative mg/dL Nitrite Urine Negative Negative Leukocyte Esterase Urine Negative Negative RBC Urine 0-2 0-2 /HPF WBC Urine 0-5 0-5 /HPF Squamous Epithelial Cell Urine 0-2 0-2 /HPF Bacteria Urine None Seen None Seen Hyaline Casts Urine 0-2 0-2 /LPF XR chest 1V Reviewed date:05/25/2024 04:59:18 PM Interpretation: Performing Lab: Notes/Report: [address] [place] [address] XRay Report Signed Patient: Juvencio Kaiser MR#: [id number] : 1950 Acct:[id number] Age/Sex: 74 / M ADM Date: 05/25/24 Loc: .ED Attending Dr: Ordering Physician: Tiago Andersen Date of Service: 05/25/24 Procedure(s): XR chest 1V Accession Number(s): [id number] cc: Tiago Andersen; Mauricio Dale MD EXAMINATION: XR CHEST CLINICAL INFORMATION: subjective fever, chills. pneumonia? COMPARISON: None available. TECHNIQUE: Frontal view of the chest was obtained. FINDINGS: The cardiac, hilar, and mediastinal contours are normal. Aortic mural calcifications. The lungs are mildly hyperaerated, however clear bilaterally. No pneumothorax or effusion. No focal osseous or soft tissue abnormality. Mild spinal degenerative changes. XR/XR chest 1V IMPRESSION: No active pulmonary disease. Electronically signed by: Antonio Harris MD 05/25/2024 04:48 PM EST RP Dictated By: Antonio Harris MD Signed By: <Electronically signed by Antonio Harris MD in OV> 05/25/24 1648 DD/ 1632 TD/TT: 05/25/24 1639 Secretary Board Of Commissioners: [place] [address] XRay Report Signed Patient: Juvencio Kaiser MR#: [id number] : 1950 Acct:[id number] Age/Sex: 74 / M ADM Date: 05/25/24 Loc: .ED Attending Dr: Ordering Physician: Tiago Andersen Date of Service: 05/25/24 Procedure(s): XR vazquez st 1V Accession Number(s): [id number] cc: Tiago Andersen; Mauricio Dale MD EXAMINATION: XR CHEST CLINICAL INFORMATION: subjective fever, chills. pneumonia? COMPARISON: None available. TECHNIQUE: Frontal view of the chest was obtained. FINDINGS: The cardiac, hilar, and mediastinal contours are normal. Aortic mural calcifications. The lungs are mildly hyperaerated, however clear bilaterally. No pneumothorax or effusion. No focal osseous or soft tissue abnormality. Mild spinal degenerative changes. XR/XR chest 1V IMPRESSION: No active pulmonary disease. Electronically sukhjinder d by: Antonio Harris MD 05/25/2024 04:48 PM EST RP Dictated By: Antonio Harris MD Signed By: <Electronically signed by Antonio Harris MD in OV> 05/25/24 1648 DD/ 1632 TD/TT: 05/25/24 1639 Secretary Board Of Commissioners: Tyshawn Vale Reviewed date:10/30/2024 01:11:46 PM Interpretation: Performing Lab:[facility], [address] [place] [address] Notes/Report: Tyshawn Vale See Note Specimen held untested for 24 hours; Call to request Chemistry testing. US venous duplex LE LT (Not yet reviewed by provider) Interpretation: Performing Lab: Notes/Report: [address] [address] Ultrasound Report Signed Patient: Juvencio Kaiser MR#: [id number] : 1950 Acct:[id number] Age/Sex: 74 / M ADM Date: 11/30/24 Loc: HO.US Attending Dr: Mauricio Dale MD Ordering Physician: Mauricio Dale MD Date of Service: 11/30/24 Procedure(s): US venous duplex LE LT Accession Number(s): [id number] cc: Mauricio Dale MD Reason for Exam: CALF TENDERNESS EXAMINATION: US TRIPLEX LOWER EXTREMITY, LEFT CLINICAL INFORMATION: Left lower extremity pain with calf tenderness. COMPARISON: None available. TECHNIQUE: Color-flow triplex imaging with spectral analysis and compression Doppler were performed on the left lower extremity. FINDINGS: Respiratory variation, normal compression and augmented flow are noted throughout the left lower extremity. The visualized common femoral vein, superficial femoral vein, profunda femoral vein, popliteal vein and midcalf peroneal and posterior tibial venous segments show no evidence of deep venous thrombosis. There is no Mann's cyst. US/US venous duplex LE LT IMPRESSION: No evidence of deep venous thrombosis involving the left lower extremity. Electronically signed by: Antonio Harris MD 11/30/2024 11:11 AM EDT Dictated By: Antonio Harris MD Signed By: <Electronically signed by Antonio Harris MD in OV> 11/30/24 1111 DD/ 1051 TD/TT: 11/30/24 1058 Secretary Board Of Commissioners: [address] [address] Ultrasound Report Signed Patient: Juvencio Kaiser MR#: [id number] : 1950 Acct:[id number] Age/Sex: 74 / M ADM Date: 11/30/24 Loc: .US Attending Dr: Mauricio Dale MD Ordering Physician: Mauricio Dale MD Date of Service: 11/30/24 Procedure(s): US venous duplex LE LT Accession Number(s): [id number] cc: Mauricio Dale MD Reason for Exam: DEREJE F TENDERNESS EXAMINATION: US TRIPLEX LOWER EXTREMITY, LEFT CLINICAL INFORMATION: Left lower extremity pain with calf tenderness. COMPARISON: None available. TECHNIQUE: Color-flow triplex imaging with spectral analysis and compression Doppler were perform ed on the left lower extremity. FINDINGS: Respiratory variatio n, normal compression and augmented flow are noted throughout the left lower extremity. The visualized common femoral vein, superficial femoral vein, profunda femoral vein, popliteal vein and midcalf peroneal and posterior tibial venous segments show no evidence of deep venous thrombosis. There is no Mann's cyst. US/US venous duplex LE LT IMPRESSION: No evidence of deep venous thrombosis involving the left lower extremity. Electronically sukhjinder d by: Antonio Harris MD 11/30/2024 11:11 AM EDT Dictated By: Antonio Harris MD Signed By: <Electronically signed by Antonio Harris MD in OV> 11/30/24 1111 DD/ 1051 TD/TT: 11/30/24 1058 Secretary Board Of Commissioners: Reason For Referral No Information Medications Medication SIG (Take, Route, Frequency, Duration) Notes Start Date End Date Status Sildenafil Citrate 100 MG 1 tablet as needed Orally Once a day for 30 day(s) 01/24/2018 Not-Max ing BD Pen Needle Short U/F 31G X [...] TABLET ONCE D AILY INTHE MORNING Active metFORMIN HCl 500 MG TAKE 2 TABLETS TWIC E A DAY WITH MEALS Active Atorvastatin Calcium 40 MG TAKE 1 TABLET ONCE DAILY Act jerry CeleBREX 200 MG 1 capsule Orally Onc e a day Active Omeprazole 20 MG TAKE 1 CAPSULE DAILY for 90 Active Aspir-81 81 MG 1 tablet Orally Once a day Active Januvia 100 MG TAKE 1 TABLET ONCE D AILY for 90 Active OneTouch Ultra Test - as directed In Vit ro test daily for 90 days 08/25/2018 Active CeleBREX 200 MG 1 capsule with food Orally QOD for 90 days 10/25/2020 Not-Gisela garcia One Touch Delica Lancets 0 1 lancet invitro DX: E 11.9 use to test blood sugar once a day for 30 days 12/01/2018 Active Immunizations Vaccine Route Administration Date Status Comme nts Fluarix Quadrivalent Unknown 01/12/2017 Administered Shingles Unknown 01/11/2013 Administered Fluarix Quadrivalent IM Intramuscular 01/18/2018 Administe red Prevnar 13 IM Intramuscular 01/24/2018 Administered TDaP Unknown 08/30/2018 Administered pt was given the vaccine at [facility]. Influenza High Dose IM Intramuscular 12/08/2018 Administer ed pt was given the vaccine at [facility]. PPSV23 (Pnemovax) IM Intramuscular 02/10/2019 Administered Shingrix IM Intramuscular 02/20/2019 Administered Shingrix IM Intramuscular 05/09/2019 Administered Influenza High Dose Unknown 01/01/2020 Administered [facility] Covid Vaccine Unknown 05/24/2020 Administered [facility] Covid Vaccine Unknown 06/14/2020 Administered Pfizer Influenza High Dose Unknown 12/15/2020 Administered [facility] SARS-COV-2 Pfizer Unknown 01/22/2021 Administered SARS-COV-2 Pfizer Unknown 07/02/2021 Administered [facility] SARS-COV-2 Pfizer Unknown 01/22/2021 Administered SARS-COV-2 Pfizer Unknown 07/02/2021 Administered SARS-COV-2 Pfizer Unknown 01/13/2022 Administered Influenza High Dose Unknown 01/13/2022 Administered Influenza High Dose IM Intramuscular 01/25/2023 Administer ed SARS-COV-2 Moderna Unknown 02/23/2023 Administered RSV Unknown 02/23/2023 Administered [facility] Influenza High Dose IM Intramuscular 12/07/2023 Administer ed Influenza High Dose IM Intramuscular 11/30/2024 Administer ed Social History Tobacco Use: Social History Observation [...] Problem Status W/U Status Risk Notes Problem 921951822 Type 2 diabetes mellitus without complications (E11.9) Active confirmed Problem 957153388459234 Erectile dysfunc tion due to arterial insufficiency (N52.01) Active confirmed Problem 408712113 Gastroesophageal reflux disease without esophagitis (K21.9) Active confirmed Problem 12665694 Essential hypertension (I10) Active confirmed Problem 95411435 Type 2 diabetes, controlled, with neuropathy (E11.40) Active confirmed Problem Cervical disc disease (003459129) Cervical disc disease (M50.90) Active confirmed Problem 580048475 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) Active confirmed Problem 65950101 Monocytosis (D72.821) Active confirmed Problem 52476707 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) Active confirmed Problem 041906155 Primary osteoarthritis of both knees (M17.0) Active confirmed Problem 35029541 Hypercholesterem ia (E78.00) Active confirmed Problem 48969958 TRUMAN (obstructive sleep apnea) (G47.33) Active confirmed Problem Mild cognitive disorder (569354170) MCI (mild cognitive impairment) (G31.84) Active confirmed Vital Signs Blood pressure diastolic 50 mm Hg 11/30/2024 Height 67 in 11/30/2024 Blood pressure systolic 112 mm Hg 11/30/2024 Weight 203 lbs 11/30/2024 BMI 31.79 kg/m2 11/30/2024 Encounters Encounter Location Date Provider Diagnosis Mauricio Dale MD [address] [place] [id number] 12/07/2023 Mauricio Dale Encounter for immunization Z23 Mauricio Dale MD [address] [place] [id number] 04/27/2024 Mauricio Dale Blood tests for rout ine general physical examination Z00.00 ; Type 2 diabetes, controlled, with neuropathy E11.40 ; Hypercholesteremia E78.00 and Essential hypertension I10 Mauricio Dale MD [address] [place] [id number] 05/18/2024 Mauricio Dale Monocytosis D72.821 Mauricio Dale MD [address] [place] [id number] 06/20/2024 Mauricio Dale Type 2 diabetes nany itus without complications E11.9 and Elevated LFTs R79.89 Mauricio Dale MD [address] [place] [address] [id number] 10/30/2024 Mauricio Dale Type 2 diabetes nany itus without complications E11.9 and Hypercholesteremia E78.00 Mauricio Dale MD [address] [place] [id number] 11/30/2024 Mauricio Dale Calf tenderness M79. 669 and Encounter for administration of vaccine Z23 Mauricio Dale MD [address] [place] [id number] 02/22/2024 Mauricio Dale Type 2 diabetes nany itus without complications E11.9 ; Mild cognitive impairment G31.84 and Nail abnormality L60.9 Mauricio Dale MD [address] [place] [address] [id number] 05/04/2024 Mauricio Dale Monocytosis D72.821 ; Annual physical exam Z00.00 ; Type 2 diabetes mellitus without complications E11.9 ; Hypercholesteremia E78.00 ; Essential hypertension I10 ; Barretts esophagus without dysplasia K22.70 ; 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 ; Colon cancer screening Z12.11 and Depression screening Z13.31 Mauricio Dale MD [address] [place] [address] [id number] 05/25/2024 Mauricio Dale Sepsis, unspecified organism A41.9 Mauricio Dale MD [address] [place] [address] [id number] 06/06/2024 Mauricio Dale Type 2 diabetes nany itus without complications E11.9 ; Elevated LFTs R79.89 and Viral syndrome B34.9 Mauricio Dale MD [address] [place] [address] [id number] 11/06/2024 Mauricio Dale Type 2 diabetes nany itus without complications E11.9 ; Hypercholesteremia E78.00 and Essential hypertension I10 Mauricio Dale MD [address] [id number] 02/17/2024 Mauricio Dale MD [address] [place] [address] [id number] 02/18/2024 Mauricio Dale MD [address] [place] [address] [id number] 05/29/2024 Mauricio Dale Assessments Encounter Date Diagnosis (ICD Code) Assessment Notes Treatment Notes Treatment Clinical Notes Section Notes 12/07/2023 Encounter for immunization (ICD-10 - Z23) 04/27/2024 Blood tests for routine general physical examination (ICD-10 - Z00.00) 04/27/2024 Type 2 diabetes, controlled, with neuropathy (ICD-10 - E11.40) 05/18/2024 Monocytosis (ICD-10 - D72.821) 06/20/2024 Type 2 diabetes mellitus without complications (ICD-10 - E11.9) had just had breakfast. 4 pieces of ciniamin toast, will conitnue current regiment and will continue to monitor/ non compliant on diet. 06/20/2024 Elevated LFTs (ICD-1 0 - R79.89) is probably related to his alcohol consumption/ will repeat 10/30/2024 Type 2 diabetes mellitus without complications (ICD-10 - E11.9) 11/30/2024 Calf tenderness (ICD-10 - M79.669) if negative will just contue with celebrex and add tylenol/ being done at [facility] today. 11/30/2024 Encounter for administration of vaccine (ICD-10 - Z23) 02/22/2024 Type 2 diabetes mellitus without complications (ICD-10 - E11.9) is presently on 55 units increase to 58, patient verbalized understanding od medication increase 05/04/2024 Monocytosis (ICD-10 - D72.821) pending lab, will continue to monitor 05/04/2024 Annual physical exam (ICD-10 - Z00.00) labs reviewed and discussed with patient 05/25/2024 Sepsis, unspecified organism (ICD-10 - A41.9) with the rigors and lethargy am concerned that he is having sepsis and sent him to the emergency room 06/06/2024 Type 2 diabetes mellitus without complications (ICD-10 - E11.9) doing well at present, will continue current regiment 06/06/2024 Elevated LFTs (ICD-1 0 - R79.89) will recheck pending future labs 11/06/2024 Type 2 diabetes mellitus without complications (ICD-10 - E11.9) increase insulin to 65 units. 04/27/2024 Hypercholesteremia (ICD-10 - E78.00) 10/30/2024 Hypercholesteremia (ICD-10 - E78.00) 02/22/2024 Mild cognitive impairment (ICD-10 - G31.84) doing the same. no treatment is available except continue exercise 05/04/2024 Type 2 diabetes mellitus without complications (ICD-10 - E11.9) stable, will continue current regiment 06/06/2024 Viral syndrome (ICD-10 - B34.9) will repeat labs 11/06/2024 Hypercholesteremia (ICD-10 - E78.00) doing well on meds, will continue curent regiment 04/27/2024 Essential hypertension (ICD-10 - I10) 02/22/2024 Nail abnormality (ICD-10 - L60.9) referral to dermatology dr bryan/ patient stated he has an appt in Mar. 05/04/2024 Hypercholesteremia (ICD-10 - E78.00) well controlled, will continue current regiment 11/06/2024 Essential hypertension (ICD-10 - I10) doing well, will continue current regiment 05/04/2024 Essential hypertension (ICD-10 - I10) 05/04/2024 Barretts esophagus without dysplasia (ICD-10 - K22.70) followed by dr portillo 05/04/2024 DM type 2 with diabetic peripheral neuropathy (ICD-10 - E11.42) try to control sugar better. does not want medss 05/04/2024 Colon cancer screening (ICD-10 - Z12.11) 05/04/2024 Depression screening (ICD-10 - Z13.31) Plan Of Treatment Pending Test Test Name Order Date Electrocardiogram (EKG) 02/10/2019 Glucose, finger stick 06/06/2024 US LEG LT VENOUS DOPPLER 11/30/2024 US venous duplex LE LT 11/30/2024 Next Appt Details Provider Name:Mauricio Cline ier, 05/03/2025 07:30:00 AM, [address] [facility], [address], [place], [place], [phone], Provider Name:Mauricio Cline ier, 05/10/2025 09:30:00 AM, [address] [facility], [address], [place], [place], [phone], Insurance Providers Payer Name Payer Address Payer Phone Subscriber Number Group Number Insured Name Patient Relationship to Insured Coverage Start Date Coverage End Date [employer] [address] [place], [place] [id number] Maria Antonia Kaiserph Self - patient is the insured MEDICARE NHIC IVY [address] [place] [id number] Juvencio Kaiser Self - patient is the insured Medical (General) History Medical History History ICD Code Hx. colon polyps - Dr. Portillo - had colonoscopy & Endo 09/09/16 - repeat 5 years done in 2021 colonoscopy 09/22 21 repeat in 5 years
--- OUTSIDE RECORDS SUMMARY | 2024-11-30 12:00 | XMS_ITS | Patient Health Record ---
Author Organization [facility] Address [address] [place] [address] Care Team Providers Care Electronic Integrated Systems Mechanic Name Role Phone Mauricio Dale MD Primary Care Provider Thien Johnson Unavailable [phone] Allergies No Known Allergies Reason For Referral [...] Problem Status W/U Status Risk Notes Problem [id number] Encounter for screening for malignant neoplasm of colon (Z12.11) Active confirmed Problem 866372206 History of adenomatous polyp of colon (Z86.010) Active confirmed Problem Screening for malignant neoplasm of rectum (988503195) Encounter for screening for malignant neoplasm of rectum (Z12.12) Active confirmed Problem 044189318 Gastroesophageal reflux disease without esophagitis (K21.9) Active confirmed Problem 494440990 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) Active confirmed Problem Xiao esophagus (655334612) 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 Problem Esophageal reflux finding (465399858) Gastroesophageal reflux (K21.9) Active confirmed Problem Gastroesophageal reflux disease (116132516) GERD without esophagitis (K21.9) Active confirmed Problem Diverticulosis of colon (423015319) Diverticulosis of colon (K57.30) Active confirmed Problem Xiao's esophagus (747239999) 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 pylori Hypertension IDDM Hyperlipidemia Denies [place],CVA,Lung disease,renal disease Arthritis Sleep apnea but does not tolerate his CP AP Negative colonoscopy in 04/2016 EGD in 2016 was negative for any definitive Xiao's; there was no esophagitis; there was a small to moderate-sized hiatal hernia Surgical History Surgery Date(Month/Year) hernia vasectomy appendectomy right knee x2--most recent was 03/2016 [facility] [address]. Caro cataracts rotator cuff tear repair left- Dr. Ange espitia
== END 2024-11-30 10:35 | disposition home or self-care (01) ==
LOC: HO.US 10:34
PROVIDERS: PCP Internal Medicine; Visit Provider Internal Medicine
DX: M79.662 Pain in left lower leg (principal)
CPT/HCPCS: 93971

== ENCOUNTER → 2024-11-30 10:40 | Outpatient (BNV) | payer MEDICARE, SELFPAY | PROVIDERS: PCP Internal Medicine; Visit Provider Radiology Diagnostic Radiology | DX: M79.662 Pain in left lower leg (principal) | CPT/HCPCS: 93971 ==

== ENCOUNTER 2025-01-10 08:09 | Outpatient (AMB) | payer MEDICARE, SELFPAY ==
--- OUTSIDE RECORDS SUMMARY | 2024-06-20 05:15 | XMS_ITS ---
Author Organization Mauricio Dale MD Address [address] [place], [place] [phone] Care Team Providers Care Conche Loader And Unloader Name Role Phone Mauricio Dale Primary Care Provider Allergies No Known Allergies Results Component Value Reference Range Notes Glucose, finger stick Reviewed date:06/20/2024 09:16:23 AM Interpretation: Performing Lab: Notes/Report: Value 202 REASON FOR VISIT 2 WK F/U Medications Medication SIG (Take, Route, Frequency, Duration) Notes Start Date End Date Status FreeStyle Lorene 2 Sensor - USE DIRECTED for 84 Activ e BD Pen Needle Short U/F 31G X 8 MM USE DIRECTED SUBCUTANEOUSLY DAILY three times a day for 90 days Active Aspir-81 81 MG 1 tablet Orally Once a day Active OneTouch Ultra Test - as directed In Vit ro test daily for 90 days 08/25/2018 Active One Touch Delica Lancets 0 1 lancet invitro DX: E 11.9 use to test blood sugar once a day for 30 days 12/01/2018 Active Farxiga 5 MG TAKE 1 TABLET ONCE D AILY INTHE MORNING Active CeleBREX 200 MG 1 capsule Orally Onc e a day Active metFORMIN HCl 500 MG TAKE 2 TABLETS TWIC E A DAY WITH MEALS Active CeleBREX 200 MG 1 capsule with food Orally QOD for 90 days 10/25/2020 Not-Takin g Sildenafil Citrate 100 MG 1 tablet as needed Orally Once a day for 30 day(s) 01/24/2018 Not-Max ing Valsartan-hydroCHLOROth iazide 320-12.5 MG TAKE 1 TABLET ONCE DAILY for 90 Active Januvia 100 MG TAKE 1 TABLET BY HILARY TH EVERY DAY Orally Once a day Active Basaglar KwikPen 100 UNIT/ML 58 units Subcutaneous daily 02/18/2024 Active Omeprazole 20 MG TAKE 1 CAPSULE ONCE DAILY Active Atorvastatin Calcium 40 MG TAKE 1 TABLET DAILY Orally Once a day Active Vital Signs Blood pressure systolic 128 mm Hg 06/21/19 Blood pressure diastolic 40 mm Hg 025 Height 67 in 06/20/2024 Weight 199 lbs 06/20/2024 BMI 31.16 kg/m2 06/20/2024 weight is up 5 pounds since 06-06-24 Encounters Encounter Location Date Provider Diagnosis Mauricio Dale MD [address] [place], [place] [phone] 06/20/2024 Mauricio Dale Type 2 diabetes mellitus without complications E11.9 and Elevated LFTs R79.89 Assessments Encounter Date Diagnosis (ICD Code) Assessment Notes Treatment Notes Treatment Clinical Notes Section Notes 06/20/2024 Type 2 diabetes mellitus without complications (ICD-10 - E11.9) had just had breakfast. 4 pieces of ciniamin toast, will conitnue current regiment and will continue to monitor/ non compliant on diet. 06/20/2024 Elevated LFTs (ICD-10 - R79.89) is probably related to his alcohol consumption/ will repeat Plan Of Treatment Medication Medication Name Sig Start Date Stop Date Notes Farxiga 5 MG TAKE 1 TABLET ONCE D AILY INTHE MORNING metFORMIN HCl 500 MG TAKE 2 TABLETS TWIC E A DAY WITH MEALS Januvia 100 MG TAKE 1 TABLET BY HILARY TH EVERY DAY Orally Once a day Basaglar KwikPen 100 UNIT/ML 58 units Subcutaneous daily 1 04/19/2023 Treatment Notes Assessment Notes Type 2 diabetes mellitus wit hout complications had just had breakfast. 4 pieces of ciniamin toast, will conitnue current regiment and will continue to monitor/ non compliant on diet. Elevated LFTs is probably related to his alcohol consumption/ will repeat Next Appt Details Provider Name:Mauricio kovacs, 01/22/2025 02:00:00 PM, [address] [place] [address] Drive, [address], [place], [place], [phone], Provider Name:Mauricio kovacs, 05/03/2025 07:30:00 AM, [address], [address], [place], [place], [phone], Provider Name:Mauricio Cline ier, 05/10/2025 09:30:00 AM, [address], [address], [place], [place], [phone], Progress Notes * Umang HEATHDOB:1950 ([age] yo M)Acc No.[id number]:06/20/2024 Progress Notes Patient: Umang SALINAS Provider: Roberta Dale MD :1950 A ge:74 Y S ex:Male Date:06/20/2024 Address:[address] [place], [place] [phone] Subjective: * Chief Complaints: * 1 . 2 WK F/U. * HPI: S ymptom(s): patient is a 74 yo male here for 2 week follow up visit. * ROS: G eneral/Constitutional: Denies C hills. D enies F atigue. D enies F ever. D enies H eadache. E NT: Denies S ore throat. R espiratory: Denies C ough. D enies S hortness of breath at rest. D enies S hortness of breath with exertion. G astrointestinal: Denies D iarrhea. D enies N ausea. * Medical History: H x. colon polyps - Dr. Okeefe - had colonoscopy & Endo 09/09/16 - repeat 5 years done in 2021, Colonoscopy 09/22 22 repeat in 5 years. * Medications: T aking CeleBREX 200 MG Capsule 1 capsule Orally Once a day , Taking Aspir-81 81 MG Tablet Delayed Release [...] DAILY Orally Once a day , Taking Valsartan-hydroCHLOROthiazide 320-12.5 MG Tablet TAKE 1 TABLET ONCE DAILY , Taking Januvia 100 MG Tablet TAKE 1 TABLET BY MOUTH EVERY DAY Orally Once a day , Taking Basaglar KwikPen 100 UNIT/ML Solution Pen-injector 58 units Subcutaneous daily , Taking Farxiga 5 MG Tablet TAKE 1 TABLET ONCE DAILY INTHE MORNING , Taking metFORMIN HCl 500 MG Tablet TAKE 2 TABLETS TWICE A DAY WITH MEALS , Not-Taking/PRN CeleBREX 200 MG Capsule 1 capsule with food Orally QOD , Not-Taking/PRN Sildenafil Citrate 100 MG Tablet 1 tablet as needed Orally Once a day , Medication List reviewed and reconciled with the patient * Allergies: N .K.D.A. Objective: * Vitals: H t: 67, Wt: 199, BMI:31.16, BP:128/40, Wt-k.27. weight is up 5 pounds since 06-06-24. * Examination: G eneral Examination: GENERAL APPEARANCE: a lert, well hydrated, in no distress.? HEAD: n ormocephalic. SKIN: g ood turgor. HEART: r egular rate and rhythm, no murmurs, rubs, gallops.? LUNGS: n o wheezes, rales, rhonchi, good air movement, clear to auscultation bilaterally. ABDOMEN: s oft, nontender, nondistended, no rebound tenderness, no organomegaly. Assessment: * Assessment: 1. T ype 2 diabetes mellitus without complications - E11.9 (Primary) 2 . E levated LFTs - R79.89 Plan: * Treatment: Value Reference Range V alue 202 Notes: had just had breakfast. 4 pieces of ciniamin toast, will conitnue current regiment and will continue to monitor/ non compliant on diet. ??2.?Elevated LFTs ? Notes: is probably related to his alcohol consumption/ will repeat?? * Procedure Codes: 8 2947 ASSAY, GLUCOSE, BLOOD QUANT, Modifiers: QW * * The named appointment provid er may or may not be the originator of this progress note, and it is not deemed complete until electronically signed by the appointment provider. Sign off status: Pending * Provider: Roberta Dale MD Date: 0 06/20/2024 Generated for Sam macdonald/Delroy/Marcelinoitting on: 1 08:23 AM EDT History and Physical Notes * HPI (History of Present Illness) Category Sub-Category Detail Notes Category Not es Symptom(s) patient is a 74 yo male here for 2 week follow up visit Examination Category Sub-Category Detail Notes Category Not es General Examination GENERAL APPEARANCE: alert, w ell hydrated, in no distress HEAD: normocephalic HEART: regular rate and rhy thm, no murmurs, rubs, gallops LUNGS: no wheezes, rales, r honchi, good air movement, clear to auscultation bilaterally ABDOMEN: soft, nontender, non distended, no rebound tenderness, no organomegaly SKIN: good turgor
--- OUTSIDE RECORDS SUMMARY | 2024-10-30 03:15 | XMS_ITS ---
Author Organization Mauricio Dale MD Address [address] [place], [place] [phone] Care Team Providers Care Office Manager Receptionist Name Role Phone Mauricio Dale Primary Care Provider Results Component Value Reference Range Notes Liver Panel Reviewed date:10/30/2024 02:16:00 PM Interpretation: Performing Lab:[facility], [address] [place] [phone] Notes/Report: Bilirubin Total 0.8 0.0-1.0 mg/dL Bilirubin Direct 0.3 0.0-0.5 mg/dL Aspartate Amino Transferase 45 5-37 U/L Alanine Aminotransferase 50 0-40 U/L Total Protein 7.0 6.5-8.0 g/dL Albumin Level 4.4 3.5-5.0 g/dL Alkaline Phosphatase 105 39-117 U/L Glucose Fasting Reviewed date:10/30/2024 01:12:06 PM Interpretation: Performing Lab:[facility], [address] [place] [phone] Notes/Report: Glucose Fasting 155 60-99 mg/dL A fasting glucose of 126 mg/dl or greater on more than one occasion is considered diagnostic of diabetes. Lipid Panel with Reflex Reviewed date:10/30/2024 02:16:45 PM Interpretation: Performing Lab:[facility], [address] [place] [phone] Notes/Report: Triglycerides 132 <150 mg/dL Desirable Triglyceride: [...] A1c Reviewed date:10/30/2024 01:11:58 PM Interpretation: Performing Lab:[facility], [address] [place] [phone] Notes/Report: Hemoglobin A1c % 8.8 <6.0 % [...] average glucose, using the formula of the N7A-Tngmpgq Average Glucose study (ADAG), Diabetes Care, Vol.31,#8, Oct. 2007 REASON FOR VISIT fasting lipids Encounters Encounter Location Date Provider Diagnosis Mauricio Dale MD [address] [place] [address] [address] [place], [place] [phone] 10/30/2024 Mauricio Dale Type 2 diabetes nany itus without complications E11.9 and Hypercholesteremia E78.00 Assessments Encounter Date Diagnosis (ICD Code) Assessment Notes Treatment Notes Treatment Clinical Notes Section Notes 10/30/2024 Type 2 diabetes mellitus without complications (ICD-10 - E11.9) 10/30/2024 Hypercholesteremia (ICD-10 - E78.00) Plan Of Treatment Next Appt Details Provider Name:Mauricio kovacs, 01/22/2025 02:00:00 PM, [address] [place] [address], [address], [place], [place], [phone], Provider Name:Mauricio Cline ier, 05/03/2025 07:30:00 AM, [address], [address], [place], [place], [phone], Provider Name:Mauricio Cline ier, 05/10/2025 09:30:00 AM, [address], [address], [place], [place], [phone], Progress Notes * Umang HEATHDOB:1950 ([age] yo M)Acc No.[id number]:10/30/2024 Progress Note Patient: Umang SALINAS Provider: Roberta Dale MD :1950 A ge:74 Y S ex:Male Date:10/30/2024 Address:[address] [place], [place] [id number] Subjective: * Chief Complaints: * 1 . [...] Dale MD Date: 0 10/30/2024 Generated for Alexi ng/Kinjalg/eTransmitting on: 1 08:23 AM EDT
--- OUTSIDE RECORDS SUMMARY | 2024-11-06 06:00 | XMS_ITS ---
Author Organization Mauricio Dale MD Address [address], [place] [phone] Care Team Providers Care Code Inspector Name Role Phone Mauricio Dale Primary Care [...] Location Date Provider Diagnosis Mauricio Dale MD [address] [place] [address] [place] [phone] 11/06/2024 Mauricio Dale Type 2 diabetes nany [...] regiment Next Appt Details Provider Name:Mauricio kovacs, 01/22/2025 02:00:00 PM, [address] [place] [address], Suite [facility], [address], [place], [phone], Provider Name:Mauricio kovacs, 05/03/2025 07:30:00 AM, [address] [place] [address], [place] [address], [address], [phone], Provider Name:Mauricio Cline ier, 05/10/2025 09:30:00 AM, [address], [address], [place], [phone], Progress Notes * Umang HEATHDOB:1950 ([age] yo M)Acc No.[id number]:11/06/2024 Progress Notes Patient: Umang SALINAS Provider: Roberta Dale MD :1950 A ge:74 Y S ex:Male Date:11/06/2024 Address:[address] [place], [place] [phone] Subjective: * Chief Complaints: * 6 months [...] L ab:Lipid Panel with Reflex (Order Date 10/30/2024) (Collection Date & Time - 10/30/2024 [...] MD Date: 0 11/06/2024 Generated for Sam macdonald/Delroy/Marcelinoitting on: 1 08:22 AM EDT History and Physical Notes * [...]
--- OUTSIDE RECORDS SUMMARY | 2024-11-30 06:00 | XMS_ITS ---
Author Organization Mauricio Dale MD Address [address] [place], [place] [id number] Care Team Providers Care Piano Technician Name Role Phone Mauricio Dale Primary Care Provider Allergies No Known Allergies REASON FOR VISIT left calf pain off and on x 4-5 weeks Medications Medication SIG (Take, Route, Frequency, Duration) Notes Start Date End Date Status BD Pen Needle Short U/F 31G X 8 MM USE DIRECTED SUBCUTANEOUSLY DAILY three times a day for 90 days Active FreeStyle Lorene 2 Sensor - USE DIRECTED for 84 Activ e Valsartan-hydroCHLOROth iazide 320-12.5 MG TAKE 1 TABLET ONCE DAILY Active Basaglar KwikPen 100 UNIT/ML 65 units Subcutaneous daily 02/18/2024 Active Farxiga 5 MG TAKE 1 TABLET ONCE D AILY INTHE MORNING Active Sildenafil Citrate 100 MG 1 tablet as needed Orally Once a day for 30 day(s) 01/24/2018 Not-Max ing CeleBREX 200 MG 1 capsule Orally Onc e a day Active Aspir-81 81 MG 1 tablet Orally Once a day Active OneTouch Ultra Test - as directed In Vit ro test daily for 90 days 08/25/2018 Active One Touch Delica Lancets 0 1 lancet invitro DX: E 11.9 use to test blood sugar once a day for 30 days 12/01/2018 Active metFORMIN HCl 500 MG TAKE 2 TABLETS TWIC E A DAY WITH MEALS Active Atorvastatin Calcium 40 MG TAKE 1 TABLET ONCE DAILY Act jerry Omeprazole 20 MG TAKE 1 CAPSULE DAILY for 90 Active Januvia 100 MG TAKE 1 TABLET ONCE D AILY for 90 Active CeleBREX 200 MG 1 capsule with food Orally QOD for 90 days 10/25/2020 Not-Takin g Immunizations Vaccine Route Administration Date Status Comme nts Influenza High Dose IM Intramuscular 11/30/2024 Administer ed Vital Signs Blood pressure systolic 112 mm Hg 12/01/19 25 Blood pressure diastolic 50 mm Hg 025 Height 67 in 11/30/2024 Weight 203 lbs 11/30/2024 BMI 31.79 kg/m2 11/30/2024 Encounters Encounter Location Date Provider Diagnosis Mauricio Dale MD [address] [place] [address] [place] [phone] 11/30/2024 Mauricio Dale Calf tenderness M79.669 and Encounter for administration of vaccine Z23 Assessments Encounter Date Diagnosis (ICD Code) Assessment Notes Treatment Notes Treatment Clinical Notes Section Notes 11/30/2024 Calf tenderness (ICD-10 - M79.669) pending diagnostic testing, if negative will just contue with celebrex and add tylenol/ [place] [facility] [place] 11/30/2024 Encounter for administration of vaccine (ICD-10 - Z23) HD flu vaccine administered Plan Of Treatment Treatment Notes Assessment Notes Calf tenderness pending diagnostic t esting, if negative will just contue with celebrex and add tylenol/ [place] [facility] [place] Encounter for administration of vaccine HD flu vaccine administered Pending Test Test Name Order Date US LEG LT VENOUS DOPPLER 11/30/2024 Next Appt Details Provider Name:Mauricio kovacs, 01/22/2025 02:00:00 PM, [address] [place] [address], Suite [facility], [place], [place], [phone], Provider Name:Mauricio kovacs, 05/03/2025 07:30:00 AM, [address] [place] [address], [address], [phone], Provider Name:Mauricio kovacs, 05/10/2025 09:30:00 AM, [address] [place] [address], [place] [address], [place], [place], [phone], Progress Notes * Michelle HEATH:1950 ([age] yo M)Acc No.[id number]:11/30/2024 Progress Notes Patient: Umang SALINAS Provider: Roberta Dale MD :1950 A ge:74 Y S ex:Male Date:11/30/2024 [id number] Subjective: * Chief Complaints: * L eft calf pain off and on x 4-5 weeks * HPI: S ymptom(s): patient is a 74 yo male here with complaint of left calf pain off and on/ here for leg pain. not swelling and no radiation. * ROS: G eneral/Constitutional: Denies C hills. [...] DIRECTED SUBCUTANEOUSLY DAILY three times a day FreeStyle Lorene 2 Sensor - Miscellaneous USE DIRECTED Valsartan-hydroCHLOROthiazide 320-12.5 MG Tablet TAKE 1 TABLET ONCE DAILY Basaglar KwikPen 100 UNIT/ML Solution Pen-injector 65 units Subcutaneous daily Farxiga 5 MG Tablet TAKE 1 TABLET ONCE DAILY INTHE MORNING metFORMIN HCl 500 MG Tablet TAKE 2 TABLETS TWICE A DAY WITH MEALS Atorvastatin Calcium 40 MG Tablet TAKE 1 TABLET ONCE DAILY Omeprazole 20 MG Capsule Delayed Release TAKE 1 CAPSULE DAILY Januvia 100 MG Tablet TAKE 1 TABLET ONCE DAILY Taking CeleBREX 200 MG Capsule 1 capsule Orally Once a day Taking Aspir-81 81 MG Tablet Delayed Release 1 tablet Orally Once a day Taking OneTouch Ultra Test - Strip as directed In Vitro test daily Taking One Touch [employer] Lancets 0 1 lancet invitro DX: E 11.9 use to test blood sugar once a day Taking BD Pen Needle Short U/F 31G X 8 MM Miscellaneous USE DIRECTED SUBCUTANEOUSLY DAILY three times a day Taking FreeStyle Lorene 2 Sensor - Miscellaneous USE DIRECTED Taking Valsartan- hydroCHLOROthiazide 320-12.5 MG Tablet TAKE 1 TABLET ONCE DAILY Taking Basaglar KwikPen 100 UNIT/ML Solution Pen-injector 65 units Subcutaneous daily Taking Farxiga 5 MG Tablet TAKE 1 TABLET ONCE DAILY INTHE MORNING Taking metFORMIN HCl 500 MG Tablet TAKE 2 TABLETS TWICE A DAY WITH MEALS Taking Atorvastatin Calcium 40 MG Tablet TAKE 1 TABLET ONCE DAILY Taking Omeprazole 20 MG Capsule Delayed Release TAKE 1 CAPSULE DAILY Taking Januvia 100 MG Tablet TAKE 1 TABLET ONCE DAILY Not-Taking/PRNCeleBREX 200 MG Capsule 1 capsule with [...] Vitals: H t: 67, Wt: 203, BMI:31.79, BP:112/50, Wt-k.08. * Examination: G eneral Examination: GENERAL APPEARANCE: a lert, well hydrated, in no distress.? EXTREMITIES: a bnormal left calf with tenderness to palpation posteriorly no cords or redness.. Assessment: * Assessment: 1. C melania tenderness - M79.669 (Primary) 2 . E ncounter for administration of vaccine - Z23 Plan: * Treatment: 2. E ncounter for administration of vaccine Notes: HD flu vaccine administered * Immunizations: Influenza High Dose : 0.5 mL (Dose No:1) (Route: Intramuscular) given by Gregoria Miranda , Office Staff on Left Deltoid * Procedure Codes: 9 0662 FLU VACC PRSV FREE INC [id number] IMMUNIZATION ADMIN * * Sign off status: Completed true * Provider: Roberta Dale MD Date: 0 11/30/2024 Generated for Sam macdonald/Delroy/Marcelinoitting on: 1 08:22 AM EDT History and Physical Notes * HPI (History of Present Illness) Category Sub-Category Detail Notes Category Not es Symptom(s) patient is a 74 yo male here with complaint of left calf pain off and on/ here for leg pain. not swelling and no radiation Examination Category Sub-Category Detail Notes Category Not es General Examination GENERAL APPEARANCE: alert, w ell hydrated, in no distress EXTREMITIES: abnormal left calf w ith tenderness to palpation posteriorly no cords or redness.
--- OUTSIDE RECORDS SUMMARY | 2025-01-01 06:45 | XMS_ITS ---
Author Organization Mauricio Dale MD Address [address] [place], [place] [id number] Care Team Providers Care Gynecologist Name Role Phone Mauricio Dale Primary Care Provider [phone] Allergies No Known Allergies Reason For Referral Reason leg pain Diagnosis 1 Leg pain (M79.606) Referral Organization Mauricio Dale MD Referring Provider First Name Mauricio Referring Provider Last Name Suyapa Referring Provider Speciality Internal M edicine Referred Provider [facility] Referred Provider Specialty Physical The rapist General Notes Cherelle Snyder 1 11:10:34 AM > referral info faxed, Cherelle Snyder 01/05/2025 11:00:13 AM > patient is aware of appt Referral Priority Routine Referral Appointment Date 01/18/2025 REASON FOR VISIT still having left calf pain, was recently treated for Strep Throat Outer Mckeon Cephalexin 500mg QID Medications Medication SIG (Take, Route, Frequency, Duration) Notes Start Date End Date Status OneTouch Ultra Test - as directed In Vit ro test daily for 90 days 08/25/2018 Active One Touch Delica Lancets 0 1 lancet invitro DX: E 11.9 use to test blood sugar once a day for 30 days 12/01/2018 Active BD Pen Needle Short U/F 31G X 8 MM USE DIRECTED SUBCUTANEOUSLY DAILY three times a day for 90 days Active CeleBREX 200 MG 1 capsule Orally Onc e a day Active Aspir-81 81 MG 1 tablet Orally Once a day Active CeleBREX 200 MG 1 capsule with food Orally QOD for 90 days 10/25/2020 Not-Takin g Sildenafil Citrate 100 MG 1 tablet as needed Orally Once a day for 30 day(s) 01/24/2018 Not-Max ing Januvia 100 MG TAKE 1 TABLET ONCE D AILY for 90 Active Atorvastatin Calcium 40 MG TAKE 1 TABLET ONCE DAILY Act jerry Omeprazole 20 MG TAKE 1 CAPSULE DAILY for 90 Active FreeStyle Lorene 2 Sensor - USE DIRECTED for 84 Activ e Valsartan-hydroCHLOROth iazide 320-12.5 MG TAKE 1 TABLET ONCE DAILY Active Basaglar KwikPen 100 UNIT/ML 65 units Subcutaneous daily 02/18/2024 Active Farxiga 5 MG TAKE 1 TABLET ONCE D AILY INTHE MORNING Active metFORMIN HCl 500 MG TAKE 2 TABLETS TWIC E A DAY WITH MEALS Active Vital Signs Blood pressure systolic 152 mm Hg 01/02/20 25 Blood pressure diastolic 60 mm Hg 025 Height 67 in 01/01/2025 Weight 205 lbs 01/01/2025 BMI 32.1 kg/m2 01/01/2025 weight is up 2 pounds since 11-30-24 Encounters Encounter Location Date Provider Diagnosis Mauricio Dale MD [address] [place] [address] Drive [address] [place], [place] [phone] 01/01/2025 Mauricio Dale Leg pain M79.606 Assessments Encounter Date Diagnosis (ICD Code) Assessment Notes Treatment Notes Treatment Clinical Notes Section Notes 01/01/2025 Leg pain (ICD-10 - M79.606) seems most likely neuropathic as the leg exam is essentially normal/ will refer to [facility] Plan Of Treatment Treatment Notes Assessment Notes Leg pain seems most likely ne uropathic as the leg exam is essentially normal/ will refer to [facility] Pending Test Test Name Order Date MRI LUMBAR SPINE NO CONTRAST 01/01/2025 Referrals Referral Date Details 01/01/2025 01/01/2025, leg pain , [facility] Next Appt Details Follow Up: 3 Weeks, Reason: Provider Name:Mauricio kovacs, 01/22/2025 02:00:00 PM, [address] [place] [address], [address], [place], [place], [phone], Provider Name:Mauricio kovacs, 05/03/2025 07:30:00 AM, [address] [place] [address], [address], [place], [place], [phone], Provider Name:Mauricio Cline ier, 05/10/2025 09:30:00 AM, [address], [address], [place], [phone], Progress Notes * Juvencio HEATHDOB:1950 ([age] yo M)Acc No.[id number]:01/01/2025 Progress Notes Patient: Juvencio SALINAS Provider: Roberta Dale MD :1950 A ge:74 Y S ex:Male Date:01/01/2025 Address:[address] [place], [place] [id number] Subjective: * Chief Complaints: * 1 . Still having left calf pain. 2. was recently treated for Strep Throat Outer Mckeon Cephalexin 500mg QID. * HPI: S ymptom(s): patient is a 74 yo male here with complaint of 5 or 6 weeks of leg pain. feels like cramps. had a strept throat went to urgent care and did covid ans strept. swab came back positive for strept. treated with some antibiotic. * ROS: G eneral/Constitutional: Denies C hills. [...] Objective: * Vitals: H t: 67, Wt: 205, BMI:32.1, BP:152/60, Wt-k.99. weight is up 2 pounds since 11-30-24. * Examination: G eneral Examination: GENERAL APPEARANCE: a lert, well hydrated, in no distress.? MUSCULOSKELETAL: h as pulses in foot and some tenderness to palpation of calf. no cords. dtr's are diminisshed bilataerally. Assessment: * Assessment: 1. L eg pain - M79.606 (Primary) Plan: * Treatment: * Follow Up: 3 Weeks * * The named appointment provid er may or may not be the originator of this progress note, and it is not deemed complete until electronically signed by the appointment provider. Sign off status: Pending * Provider: Roberta Dale MD Date: Generated for aSm macdonald/Delroy/Vladimir on: 08:24 AM EDT History and Physical Notes * Examination Category Sub-Category Detail Notes Category Not es General Examination GENERAL APPEARANCE: alert, w ell hydrated, in no distress MUSCULOSKELETAL: has pulses in foot a nd some tenderness to palpation of calf. no cords. dtr's are diminisshed bilataerally Consultation Request Notes Referral Date Referring Provider Referred Provider Not es 01/01/2025 Mauricio Dale, [facility] le g pain
--- NOTE | 2025-01-10 08:17 | MHC.OFFVIS ---
Vital Signs 01/10/25 08:21 Height 5 ft 7 in Weight 193 lb BMI 30.2 Intake Visit Reasons: INJ- B/L knee injection last 10/03/24 Intake Note: Umang is a 74 year old female who presents today for bilateral knee injections, last injection on 10/03/24. Patient reports that the last injections provided him with good relief. He would like to repeat injections bilaterally today Allergies No Known Allergies (No Known Allergies*) Allergy (Verified 01/10/25 08:26) Medication List - Last Reconciled 01/10/25 by Christine Boogie PA-C aspirin 81 mg PO DAILY atorvastatin 40 mg PO DAILY celecoxib 200 mg PO BID dapagliflozin propanediol (Farxiga) 5 mg PO DAILY insulin glargine (Lantus Solostar U-100 Insulin) ea subcut insulin glargine (Basaglar KwikPen U-100 Insulin) 58 units subcut DAILY metformin 500 mg PO DAILY multivitamin 1 tab PO DAILY omeprazole 20 mg PO DAILY sitagliptin phosphate (Januvia) 100 mg PO DAILY valsartan-hydrochlorothiazide 320-12.5 mg 1 tab PO DAILY HPI HPI INJ- B/L knee injection last 10/03/24: Details: 74-year-old gentleman returns to the office today for bilateral knee pain. He had his last set of injections in September of 2024 which were helpful up until recently. He continues to have discomfort with daily activities such as stairs and prolonged walking. [facility] Medical History Arthritis Diabetes Elevated cholesterol GERD (gastroesophageal reflux disease) Hypertension Skin cancer Sleep apnea Surgical History Hx of vasectomy Hx of repair of rotator cuff Hx of cataract extraction History of esophagogastroduodenoscopy (EGD) H/O colonoscopy Hx of hernia repair History of appendectomy H/O right knee surgery Social History (Updated 06/12/24 @ 08:57 by JUSTIN Peters) Patient Tobacco Use Status: Former Tobacco user Current occupational status: retired Current occupation: left hand dominant Review of Systems Const All systems reviewed & are unremarkable except as noted in HPI and below Physical Exam Vital Signs: BMI result Body Mass Index 30.2 Extrem Other: bilat knee skin intact, no erythema or joint effusion. Tenderness along the medial joint line. ROM full with crepitus. Negative steinmans. No ligamentous laxity. NVI. Office Procedures AMB Joint Injection/Aspiration Joint Injection/Aspiration Primary Site: right knee Secondary Site: left knee Prep: site was prepped using aseptic technique, ethochloride spray was applied and injection warnings given Injected: 40 mg of, with 3 mL of, 1% plain lidocaine, 0.25% bupivacaine, in the joint and decadron Approach Used: anterolateral Procedure: The patient tolerated the procedure well and there was some relief with the local anesthesia Coding 31382 - Glenohumeral/Tronchanteric Bursa/Intraarticular Procedure code (CPT) selection complete Assessment & Plan Assessment & Plan (1) Osteoarthritis of knees, bilateral: Code(s): M17.0 - Bilateral primary osteoarthritis of knee Category: Medical Qualifiers: Osteoarthritis type: primary Qualified Code(s): M17.0 - Bilateral primary osteoarthritis of knee Plan: We discussed options today, which include steroid injection. The patient did consent to move forward with the bilat knee injection, which was tolerated well.? I recommended rest, ice and elevation and OTC antiinflammatories prn for discomfort. If symptoms persist over the next 6-8 weeks, they will contact our office, otherwise, prn We also discussed their diabetes and the effect the steroid can have on thier blood glucose levels; therefore, they will continue to monitor these very closely over the next 72 hours Coding Level of Care Code Est Pt Level 3 (75683) Complex EM visit Add On G2211 Diagnoses Primary osteoarthritis of both knees M17.0 Osteoarthritis type: primary CPT Codes Coding - Joint 7: 94175 - Glenohumeral/Tronchanteric Bursa/Intraarticular ([id number])
[2025-01-10 08:21] VITALS: BMI 30.2
--- OUTSIDE RECORDS SUMMARY | 2025-01-10 08:23 | XMS_ITS | Patient Health Record ---
Author Organization [facility] Address [address] [place] [address] Care Team Providers Care C D Stripper Name Role Phone Mauricio Dale MD Primary Care Provider Thien Johnson Unavailable [phone] Allergies No Known Allergies Reason For Referral [...] Once a day Active Januvia 100 MG Oral; Duration: 90 Active metFORMIN HCl 500 MG Orally Twice a day Active Diovan HCT Not-Takin g Atorvastatin Calcium 40 MG Oral; Duration: 90 Active Aspir-81 Active glyBURIDE Not-Taking Immunizations Vaccine Route Administration Date Status Comme nts Influenza Unknown 11/27/2020 Administered Problems Problem Type SNOMED Code ICD Code Onset Dates Problem Status W/U Status Risk Notes Problem Screening for malignant neoplasm of colon (720235016) Encounter for screening for malignant neoplasm of colon (Z12.11) Active confirmed Problem History of adenomatous polyp of colon (911488779) History of adenomatous polyp of colon (Z86.010) Active confirmed Problem Screening for malignant neoplasm of rectum (995099850) Encounter for screening for malignant neoplasm of rectum (Z12.12) Active confirmed Problem Gastroesophageal reflux disease without esophagitis (153172341) Gastroesophageal reflux disease without esophagitis (K21.9) Active confirmed Problem Xiao's esophagus (923104082) Barretts esophagus without dysplasia (K22.70) Active confirmed Problem Xiao esophagus (892617047) 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 Problem Esophageal reflux finding (372246490) Gastroesophageal reflux (K21.9) Active confirmed Problem Gastroesophageal reflux disease (239428505) GERD without esophagitis (K21.9) Active confirmed Problem Diverticulosis of colon (579600116) Diverticulosis of colon (K57.30) Active confirmed Problem Xiao's esophagus (629854054) 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) Active confirmed Plan Of Treatment Future Test Test Name Order Date UPPER GI ENDOSCOPY 12/31/2010 COLONOSCOPY 12/31/2010 UPPER GI ENDOSCOPY 06/16/2016 COLONOSCOPY 06/16/2016 UPPER GI ENDOSCOPY 08/26/2021 COLONOSCOPY 08/26/2021 Insurance Providers Payer Name Payer Address Payer Phone Subscriber Number Group Number Insured Name Patient Relationship to Insured Coverage Start Date Coverage End Date [facility] [address] [place], [place] [id number] DELVIN HEATH Self - patient is the [...] any H. pylori Hypertension IDDM Hyperlipidemia Denies [place],CVA,Lung disease,renal disease Arthritis Sleep apnea but does not tolerate his CP AP Negative colonoscopy in 04/2016 EGD in 2016 was negative for any definitive Xiao's; there was no esophagitis; there was a small to moderate-sized hiatal hernia Surgical History Surgery Date(Month/Year) hernia vasectomy appendectomy right knee x2--most recent was 03/[address] Caro cataracts rotator cuff tear repair left- Dr. Ange espitia
--- OUTSIDE RECORDS SUMMARY | 2025-01-10 08:23 | XMS_ITS | Patient Health Record ---
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 Panel Fa st Reviewed date:04/27/2024 12:17:59 PM Interpretation: Performing Lab:[address] [phone] Notes/Report: Sodium 144 135-145 mmol/L Potassium 4.0 [...] Panel Reviewed date:04/27/2024 12:18:16 PM Interpretation: Performing Lab:[address] [phone] Notes/Report: Triglycerides 239 <150 mg/dL Desirable Triglyceride: [...] (Free>4and<10) Reviewed date:04/27/2024 12:18:08 PM Interpretation: Performing Lab:[address] [phone] Notes/Report: PSA,Total (Free>4and<10) 1.66 0.00-4.00 ng/mL A [...] Random Reviewed date:04/27/2024 12:21:53 PM Interpretation: Performing Lab:[address] [phone] Notes/Report: Creatinine Urine 130.05 Microalbumin Urine 46.0 Microalbum/Creatinine Ratio Ur 35.3 <30 ug/mg cr Albumin/Creatinine Ratio Reference Ranges: Normal: < 30 ug/mg creatinine Microalbuminuria: 30 - 300 ug/mg creatinine Clinical Albuminuria: > 300 ug/mg creatinine Hemoglobin A1c Reviewed date:04/27/2024 12:14:06 PM Interpretation: Performing Lab:[address] [address] Notes/Report: Hemoglobin A1c % 8.1 <6.0 % [...] average glucose, using the formula of the O2Z-Gswdiru Average Glucose study (ADAG), Diabetes Care, Vol.31,#8, Oct. 2007 UA ClnCatch+Micro w/rflx Cul t Reviewed date:04/27/2024 12:14:34 PM Interpretation: Performing Lab:[facility], [address] [place] [phone] Notes/Report: [id number] Urine, Clean Catch Color Urine Yellow Appearance Urine Clear PH 5.5 5.0-9.0 Glucose Urine UA >=1000 Negative mg/dL Urine Blood Negative Negative Specific [place] - Urine >= 1.030 1.005-1.025 Urine Protein [...] ff Reviewed date:05/18/2024 12:48:07 PM Interpretation: Performing Lab:[facility], [address] [place] [phone] Notes/Report: White Blood Count 5.7 4.8-10.8 X10*3/uL [...] Panel Reviewed date:10/30/2024 02:16:00 PM Interpretation: Performing Lab:[facility], [address] [place] [phone] Notes/Report: Bilirubin Total 0.8 0.0-1.0 mg/dL Bilirubin Direct 0.3 0.0-0.5 mg/dL Aspartate Amino Transferase 45 5-37 U/L Alanine Aminotransferase 50 0-40 U/L Total Protein 7.0 6.5-8.0 g/dL Albumin Level 4.4 3.5-5.0 g/dL Alkaline Phosphatase 105 39-117 U/L Glucose Fasting Reviewed date:10/30/2024 01:12:06 PM Interpretation: Performing Lab:[facility], [address] [place] [phone] Notes/Report: Glucose Fasting 155 60-99 mg/dL A fasting glucose of 126 mg/dl or greater on more than one occasion is considered diagnostic of diabetes. Lipid Panel with Reflex Reviewed date:10/30/2024 02:16:45 PM Interpretation: Performing Lab:[facility], [address] [place] [phone] Notes/Report: Triglycerides 132 <150 mg/dL Desirable Triglyceride: [...] A1c Reviewed date:10/30/2024 01:11:58 PM Interpretation: Performing Lab:[facility], [address] [place] [phone] Notes/Report: Hemoglobin A1c % 8.8 <6.0 % [...] average glucose, using the formula of the S6B-Hgkfraa Average Glucose study (ADAG), Diabetes Care, Vol.31,#8, Oct. 2007 Glucose, finger stick (Not y et reviewed by provider) Interpretation: Performing Lab: Notes/Report: Value 173 Complete Blood Count Auto Di ff Reviewed date:06/06/2024 02:04:54 PM Interpretation: Performing Lab:[facility], [address] [place] [phone] Notes/Report: White Blood Count 6.3 4.8-10.8 X10*3/uL [...] NRBC Abs Auto 0.000 0.0-0.012 X10*3/uL Comprehensive [place]. Panel Fa st Reviewed date:06/07/2024 07:11:18 PM Interpretation: Performing Lab:[facility], [address] [place] [phone] Notes/Report: Sodium 142 135-145 mmol/L Potassium 4.3 [...] ff Reviewed date:05/25/2024 04:59:53 PM Interpretation: Performing Lab:[facility], [address] [place] [phone] Notes/Report: White Blood Count 4.9 4.8-10.8 X10*3/uL [...] Panel Reviewed date:05/25/2024 05:00:22 PM Interpretation: Performing Lab:[facility], [address] [place] [phone] Notes/Report: Sodium 139 135-145 mmol/L Potassium 4.4 [...] Lipase Reviewed date:05/25/2024 05:00:02 PM Interpretation: Performing Lab:[facility], [address] [place] [phone] Notes/Report: Lipase 56 8-78 U/L SLIDE REVIEW Reviewed date:05/25/2024 04:59:27 PM Interpretation: Performing Lab:[facility], [address] [place] [phone] Notes/Report: SLIDE REVIEW VERIFIED SARS-CoV2/FLU/RSV Reviewed date:05/26/2024 04:27:15 PM Interpretation: Performing Lab:[facility], [address] [place] [phone] Notes/Report: Influenza A PCR NEGATIVE Negative Influenza [...] by authorized laboratories. Testing performed on the [employer] GeneXpert utilizing real-time RT-PCR. All SARS CoV2 and positive influenza A/B results are reported to [facility]. UA ClnCatch+Micro w/rflx Cul t Reviewed date:05/25/2024 05:00:42 PM Interpretation: Performing Lab:[facility], [address] [place] [phone] Notes/Report: [id number] Urine, Clean Catch Color Urine Dark Yellow Appearance Urine Clear PH 5.5 5.0-9.0 Glucose Urine UA >=1000 Negative mg/dL Urine Blood Negative Negative Specific [place] - Urine >= 1.030 1.005-1.025 Urine Protein [...] date:05/25/2024 04:59:18 PM Interpretation: Performing Lab: Notes/Report: [address] [place] [address] XRay Report Signed Patient: Juvencio Kaiser MR#: [id number] : 1950 Acct:[id number] Age/Sex: 74 / M ADM Date: 05/25/24 Loc: .ED Attending Dr: Ordering Physician: Tiago Andersen Date of Service: 05/25/24 Procedure(s): XR chest 1V Accession Number(s): [id number] cc: Tiago Andersen; Mauricio Dale MD EXAMINATION: [...] 05/25/24 1648 DD/ 1632 TD/TT: 05/25/24 1639 [employer]: [place] [address] XRay Report Signed Patient: Juvencio Kaiser MR#: [id number] : 1950 Acct:[id number] Age/Sex: 74 / M ADM Date: 05/25/24 Loc: .ED Attending Dr: Ordering Physician: Tiago Andersen Date of Service: 05/25/24 Procedure(s): XR vazquez st 1V Accession Number(s): [id number] cc: Tiago Andersen; Mauricio Dale MD EXAMINATION: [...] Harris MD Signed By: <Electronically signed by Antonoi Harris MD in OV> 05/25/24 1648 DD/ 1632 TD/TT: 05/25/24 1639 [employer]: Tyshawn Vale Reviewed date:10/30/2024 01:11:46 PM Interpretation: Performing Lab:[facility], [address] [place] [address] Notes/Report: Tyshawn Vale See Note Specimen held untested for 24 hours; Call to request Chemistry testing. US venous duplex LE LT Reviewed date:11/30/2024 12:59:09 PM Interpretation: Performing Lab: Notes/Report: [address] [address] Ultrasound Report Signed Patient: Juvencio Kaiser MR#: [id number] : 1950 Acct:[id number] Age/Sex: 74 / M ADM Date: 11/30/24 Loc: HO.US Attending Dr: Mauricio Dale MD Ordering Physician: Mauricio Dlae MD Date of Service: 11/30/24 Procedure(s): US venous duplex LE LT Accession Number(s): [id number] cc: Mauricio Dale MD Reason for Exam: [...] 11/30/24 1111 DD/ 1051 TD/TT: 11/30/24 1058 [employer]ounder: [address] [address] Ultrasound Report Signed Patient: Juvencio Kaiser MR#: [id number] : 1950 Acct:[id number] Age/Sex: 74 / M ADM Date: 11/30/24 Loc: HO.US Attending Dr: Mauricio Dale MD Ordering Physician: Mauricio Dale MD Date of Service: 11/30/24 Procedure(s): US venous duplex LE LT Accession Number(s): [id number] cc: Mauricio Dale MD Reason for Exam: [...] 11/30/24 1111 DD/ 1051 TD/TT: 11/30/24 1058 [employer]: Reason For Referral Reason leg pain Diagnosis 1 Leg pain (M79.606) Referral Organization Mauricio Dale MD Referring Provider First Name Mauricio Referring Provider Last Name Suyapa Referring Provider Speciality Internal M edicine Referred Provider [facility] Referred Provider Specialty Physical [facility] Notes Cherelle Snyder 1 11:10:34 AM > referral info faxed, Cherelle Snyder 01/05/2025 11:00:13 AM > patient is aware of appt Referral Priority Routine Referral Appointment Date 01/18/2025 Medications Medication SIG (Take, Route, Frequency, Duration) Notes Start Date End Date Status OneTouch Ultra Test - as directed In Vit ro test daily for 90 days 08/25/2018 Active CeleBREX 200 MG 1 capsule with food Orally QOD for 90 days 10/25/2020 Not-Takin g One Touch Delica Lancets 0 1 lancet invitro DX: E 11.9 use to test blood sugar once a day for 30 days 12/01/2018 Active Sildenafil Citrate 100 MG 1 tablet as needed Orally Once a day for 30 day(s) 01/24/2018 Not-Max ing BD Pen Needle Short U/F 31G X 8 MM USE DIRECTED SUBCUTANEOUSLY DAILY three times a day for 90 days Active FreeStyle [place] 2 Sensor - USE DIRECTED for 84 Activ e Januvia 100 MG TAKE 1 TABLET ONCE D AILY for 90 Active Atorvastatin Calcium 40 MG TAKE 1 TABLET ONCE DAILY Act jerry CeleBREX 200 MG 1 capsule Orally Onc e a day Active Omeprazole 20 MG TAKE 1 CAPSULE DAILY for 90 Active Aspir-81 81 MG 1 tablet Orally Once a day Active Valsartan-hydroCHLOROth iazide 320-12.5 MG TAKE 1 TABLET ONCE DAILY Active Basaglar KwikPen 100 UNIT/ML 65 units Subcutaneous daily 02/18/2024 Active Farxiga 5 MG TAKE 1 TABLET ONCE D AILY INTHE MORNING Active metFORMIN HCl 500 MG TAKE 2 TABLETS TWIC E A DAY WITH MEALS Active Immunizations Vaccine Route Administration Date Status Comme nts Fluarix Quadrivalent Unknown 01/12/2017 Administered Shingles Unknown 01/11/2013 Administered Fluarix Quadrivalent IM Intramuscular 01/18/2018 Administe red Prevnar 13 IM Intramuscular 01/24/2018 Administered TDaP Unknown 08/30/2018 Administered pt was given the vaccine at [facility] in [place]. Influenza High Dose IM Intramuscular 12/08/2018 Administer ed pt was given the vaccine at [facility]. PPSV23 (Pnemovax) IM Intramuscular 02/10/2019 Administered Shingrix [...] Problem Status W/U Status Risk Notes Problem 601812744 Type 2 diabetes mellitus without complications (E11.9) Active confirmed Problem 600666647402431 Erectile dysfunc tion due to arterial insufficiency (N52.01) Active confirmed Problem 945568941 Gastroesophageal reflux disease without esophagitis (K21.9) Active confirmed Problem 39952278 Essential hypertension (I10) Active confirmed Problem 92295985 Type 2 diabetes, controlled, with neuropathy (E11.40) Active confirmed Problem Cervical disc disease (329613978) Cervical disc disease (M50.90) Active confirmed Problem 256143711 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) Active confirmed Problem 41943567 Monocytosis (D72.821) Active confirmed Problem 97827926 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) Active confirmed Problem 533098888 Primary osteoarthritis of both knees (M17.0) Active confirmed Problem 47810824 Hypercholesterem ia (E78.00) Active confirmed Problem 32031955 TRUMAN (obstructive sleep apnea) (G47.33) Active confirmed Problem Mild cognitive disorder (248711104) MCI (mild cognitive impairment) (G31.84) Active confirmed Vital Signs Blood pressure diastolic 60 mm Hg 01/01/2025 luis ght is up 2 pounds since 11-30-24 Height 67 in 01/01/2025 weight is up 2 pounds since 11-30-24 Blood pressure systolic 152 mm Hg 01/01/2025 weig ht is up 2 pounds since 11-30-24 Weight 205 lbs 01/01/2025 weight is up 2 pounds since 11-30-24 BMI 32.1 kg/m2 01/01/2025 weight is up 2 pounds since 11-30-24 Encounters Encounter Location Date Provider Diagnosis Mauricio Dale MD [address] [place] [id number] 04/27/2024 Mauricio Dale Blood tests for rout ine general physical examination Z00.00 ; Type 2 diabetes, controlled, with neuropathy E11.40 ; Hypercholesteremia E78.00 and Essential hypertension I10 Mauricio Dale MD [address] [place] [id number] 05/18/2024 Mauricio Dale Monocytosis D72.821 Mauricio Dale MD [address] [place] [address] [address] [place] [id number] 06/20/2024 Mauricio Dale Type 2 diabetes nany itus without complications E11.9 and Elevated LFTs R79.89 Mauricio Dale MD [address] [place] [id number] 10/30/2024 Mauricio Dale Type 2 diabetes nany itus without complications E11.9 and Hypercholesteremia E78.00 Mauricio Dale MD [address] [place] [id number] 01/01/2025 Mauricio Dale Leg pain M79.606 Mauricio Dale MD [address] [place] [id number] 02/22/2024 Mauricio Dale Type 2 diabetes nany itus without complications E11.9 ; Mild cognitive impairment G31.84 and Nail abnormality L60.9 Mauricio Dale MD [address] [place] [id number] 05/04/2024 Mauricio Dale Monocytosis D72.821 ; Annual physical exam Z00.00 ; Type 2 diabetes mellitus without complications E11.9 ; Hypercholesteremia E78.00 ; Essential hypertension I10 ; Barretts esophagus without dysplasia K22.70 ; 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 ; Colon cancer screening Z12.11 and Depression screening Z13.31 Mauricio Dale MD [address] [place] [address] [id number] 05/25/2024 Mauricio Dale Sepsis, unspecified organism A41.9 Mauricio Dale MD [address] [place] [id number] 06/06/2024 Mauricio Dale Type 2 diabetes nany itus without complications E11.9 ; Elevated LFTs R79.89 and Viral syndrome B34.9 Mauricio Dale MD [address] [place] [address] [id number] 11/06/2024 Mauricio Dale Type 2 diabetes nany itus without complications E11.9 ; Hypercholesteremia E78.00 and Essential hypertension I10 Mauricio Dale MD [address] [place] [address] [id number] 11/30/2024 Mauricio Dale Calf tenderness M79. 669 and Encounter for administration of vaccine Z23 Mauricio Dale MD [address] [place] [address] [id number] 02/17/2024 Mauricio Dale MD [address] [place] [address] [id number] 02/18/2024 Mauricio Dale MD [address] [place] [address] [id number] 05/29/2024 Mauricio Dale Assessments Encounter Date Diagnosis [...] diabetes mellitus without complications (ICD-10 - E11.9) 01/01/2025 Leg pain (ICD-10 - M79.606) seems most likely neuropathic as the leg exam is essentially normal/ [facility] 02/22/2024 Type 2 diabetes mellitus without complications [...] - E11.9) increase insulin to 65 units. 11/30/2024 Calf tenderness (ICD-10 - M79.669) pending diagnostic testing, if negative will just contue with celebrex and add tylenol/ being done at [facility] today. 11/30/2024 Encounter for administration of vaccine (ICD-10 - Z23) HD flu vaccine administered 04/27/2024 Hypercholesteremia (ICD-10 - E78.00) 10/30/2024 Hypercholesteremia [...] Electrocardiogram (EKG) 02/10/2019 Glucose, finger stick 06/06/2024 MRI LUMBAR SPINE NO CONTRAST 01/01/2025 US LEG LT VENOUS DOPPLER 11/30/2024 Next Appt Details Provider Name:Mauricio kovacs, 01/22/2025 02:00:00 PM, [address] [place] [address], [address], [phone], Provider Name:Mauricio Cline ier, 05/03/2025 07:30:00 AM, [address] [place] [address], [address], [phone], Provider Name:Mauricio baumr, 05/10/2025 09:30:00 AM, [address] [place] [address], [address], [phone], Insurance Providers Payer Name Payer Address Payer Phone Subscriber Number Group Number Insured Name Patient Relationship to Insured Coverage Start Date Coverage End Date [employer] [address] [place], [place] [phone] [phone] [id number] Juvencio Kaiser Self - patient is the insured [employer] [address] [place] [address] [id number] Juvencio Kaiser Self - patient is the insured Medical (General) History Medical History History ICD Code Hx. colon polyps - Dr. Portillo - had colonoscopy & Endo 09/09/16 - repeat 5 years done in 2021 colonoscopy 09/22 21 repeat in 5 years
== END 2025-01-10 08:53 | disposition home or self-care (01) ==
LOC: HO.HOS 08:10
PROVIDERS: Visit Provider Physician Assistant
DX: M17.0 Bilateral primary osteoarthritis of knee (principal)
CPT/HCPCS: 20610; 99213

== ENCOUNTER → 2025-01-10 08:09 | Outpatient (BNVA) | payer MEDICARE, SELFPAY | PROVIDERS: Visit Provider Physician Assistant | DX: M17.0 Bilateral primary osteoarthritis of knee (principal) | CPT/HCPCS: 20610; 99212; J0665; J1100; J2003 ==